=== PATIENT | female | born 1970 | race Caucasian/White ===

== ENCOUNTER 2017-05-02 14:12 | Emergency (ER) | payer SELFPAY ==
[~2017-05-02] VITALS: Ht 157.5 cm; Wt 63.5 kg
[~2017-05-02 14:12] MED LIST: ACET-789 PO; ACHD5005 PO; ALBU17AE3 IH; ALBU8.5H2 IH; AMX500CRX; AZIT-21 PO; BENZ100C18 PO; CEFD300C3 PO; CIPR500T78 PO; CODE-54; CODE118S2 PO; CPR250T PO; CRAN450T2; CRS350T PO; CYCL10TA9 PO; DARI7.5T8; DOXY-13 PO; DOXY100C2 PO; DULO20CA; DULO20CA PO; DULO30CA; DULO30CA PO; DULO60CA58 PO; DULO60CA6 PO; GABA100C; GABA300C PO; GLUCOSAMINE; GUAI10LI9 PO; HYDR-1231 PO; HYDR-2856; HYDR-2890 PO; HYDR-34 PO; HYDR-3583 PO; HYDR-3714 PO; HYDR-3720 PO; HYDR-707 PO; HYDR118S10 PO; HYDR1TAB PO; HYDR50CA3; HYDROCODONE; HYOS0.3710 PO; LACT10SO33; LCT30U; LNS30CCR; LNS30CCR PO; MELO-195 PO; MELO7.5T; METAXALONE; METH4TAB PO; METO-354 PO; NAPR-243; NAPR-243 PO; NAPR220T29 PO; NAPR250T34 PO; NAPR500T72 PO; NCT21TD; NITR-65 PO; OMEP-10 PO; OMEP20CA12; OMEP40CA36 PO; ONDA-42 SL; ONDAN4ODT PO; OXYC-12 PO; OXYC10TA PO; OXYC1TAB17 PO; PHEN100T26 PO; PHEN200T27; PHT5T; PNT40TEC PO; PRD10T PO; PRD20T PO; PROP1TAB61 PO; PROP1TAB77 PO; ROPI1TAB PO; ROPI1TAB40; ROPI2TAB PO; ROPI2TAB28 PO; ROSU5TAB PO; SCR1T PO; SCR1T1 PO; SPIR100T PO; SPIR1TAB; SPRN25T; SULF1TAB35; SULF1TAB38 PO; TRAM50TA2 PO; TRM50T PO; Tylenol #3
[2017-05-02] MEDS ORDERED: IBUPROFEN 800 MG (MOTRIN) TAB PO STA (14:35)
--- NOTE | 2017-05-02 14:51 | Diagnostic Imaging Report ---
INDICATION: Right-sided headache TECHNIQUE: Routine non contrast-enhanced axial images were obtained from the skull base to the vertex. COMPARISON: 01/31/2015 FINDINGS: The ventricles and cortical sulci are normal in size and contour. There is no midline shift or mass-effect. No acute intra-axial hemorrhage is seen. There are no abnormal areas of increased or decreased density to suggest acute hemorrhage or edema. No extra-axial masses or collections are present. The bony calvarium is intact. The visualized paranasal sinuses are unremarkable. The mastoid air cells are clear. IMPRESSION: 1. No acute intracranial abnormality. No CT evidence of mass, acute infarct or intracranial hemorrhage. Dictated by: Dictated on workstation # [id number]
--- NOTE | 2017-05-02 15:09 | ED Headache ---
General Chief Complaint: Head/Cervical Problems Stated Complaint: HEADACHE Nursing Triage Note: PT AMBULATED TO ROOM. PT COMPLAINS OF A MOLINA, AND PRESSURE ON RIGHT SIDE OF HEAD. PT STATES SHE HAS A KNOT ON HER RIGHT SIDE BEHIND HER EAR. PAIN STARTED LAST NIGHT. Nursing Sepsis Screen: No Definite Risk Source: patient Exam Limitations: no limitations History of Present Illness Time seen by provider: 14:30 Initial Comments Here with complaint of pain to the right side of her head and face and has a spot behind her right ear. She states the pain is worse when down better when sitting up. She is worried that she has cancer. Denies fever or chills. Timing/Duration: 24 hours Severity/Quality: moderate Location: frontal, other (frontal to behind right ear) Prior Headaches/Recent Trauma: occasional headaches Associated Symptoms: No confusion, No fever/chills, No loss of consciousness, No nausea/vomiting, nasal congestion, No sinus infection, No stiff neck, No vision changes Allergies and Home Medications Allergies Coded Allergies: lorazepam (Unverified Allergy, Mild, "JITTERY", 05/20/09) dicyclomine (Unverified Allergy, Unknown, 07/07/14) ketorolac tromethamine (Unverified Allergy, Unknown, 06/04/14) prochlorperazine (Verified Allergy, Unknown, "JITTERY", 06/17/08) promethazine (Verified Allergy, Unknown, CONFUSED, AGITATED, 06/17/08) tramadol HCl (Verified Adverse Reaction, Mild, Anxiety, 04/26/13) Pt states she requires Benadryl to calm her down if she takes Ultram or Toradol. Does not have a true allergy to Ultram. Home Medications Duloxetine Hcl 60 Mg Capsule.dr, 1 CAP PO DAILY, (Reported) Hydrocodone Bit/Acetaminophen 1 Each Tablet, 1 EACH PO Q4HR PRN, (Reported) Hydrocodone Bit/Acetaminophen 1 Tab Tablet, 1-2 TAB PO Q6H PRN for PAIN, #10 Prescribed by: CHIDI DAVE on 03/29/15 0043 Naproxen Sodium 220 Mg Tablet, 220 MG PO DAILY, (Reported) Ropinirole Hcl 2 Mg Tab.er.24h, 2 MG PO HS, (Reported) Constitutional: see HPI, No chills, No fever Eyes: See HPI, Pain Ears, Nose, Mouth, Throat: see HPI Respiratory: no symptoms reported Cardiovascular: no symptoms reported Gastrointestinal: no symptoms reported Skin: see HPI Past Vaayvez-Kbprwg-Mdyqkz Hx Patient Social History Alcohol Use: Denies Use Recreational Drug Use: No Smoking Status: Current Everyday Smoker Type Used: Cigarettes 2nd Hand Smoke Exposure: Yes Recent Foreign Travel: No Contact w/Someone Who Travel: No Recent Infectious Disease Expo: No Recent Hopitalizations: Yes (liver faillure, jaundice) Immunizations Up To Date Tetanus Booster (TDap): Less than 5yrs Date of Pneumonia Vaccine: Nov 04, 2013 Date of Influenza Vaccine: Jul 14, 2014 Seasonal Allergies Seasonal Allergies: No Surgeries HX Surgeries: Yes (LEFT OVARY REMOVED, CYST REMOVED FROM BREAST,MESH BLADDER SURGERY) Respiratory Hx Respiratory Disorders: Yes Respiratory Disorders: Asthma Cardiovascular Hx Cardiac Disorders: No Neurological Hx Neurological Disorders: No Reproductive System Hx Reproductive Disorders: No Sexually Transmitted Disease: No HIV/AIDS: No 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 Genitourinary Hx Genitourinary Disorders: Yes (STRESS URINARY INCONTINENCE, MESH BLADDER SURGERY) Genitourinary Disorders: Bladder Infection, Kidney Stones Gastrointestinal Hx Gastrointestinal Disorders: Yes (gastric erosions, CHRONIC ABDOMINAL PAIN) Gastrointestinal Disorders: Ulcer, Gall Bladder Disease Musculoskeletal Hx Musculoskeletal Disorders: Yes (RESTLESS LEG SYNDROME) Musculoskeletal Disorders: Arthritis Endocrine Hx Endocrine Disorders: No HEENT HX ENT Disorders: No Cancer Hx Cancer: No Psychosocial Hx Psychiatric Problems: Yes Behavioral Health Disorders: Anxiety, Depression Integumentary HX Skin/Integumentary Disorder: No Blood Transfusions Hx Blood Disorders: No Reviewed Nursing Assessment Reviewed/Agree w Nursing PMH: Yes Family Medical History Family Medial History: Abdominal aortic aneurysm 19 FATHER Cancer of mouth GRANDMOTHER Diabetes mellitus 19 MOTHER Thyroid disease 19 MOTHER Physical Exam Vital Signs Vital Sign - Last 12Hours 05/02/17 14:24 Temp 96.7 Pulse 83 Resp 20 B/P (MAP) 144/92 Pulse Ox 98 O2 Delivery Room Air Capillary Refill : Less Than 3 Seconds General Appearance: WD/WN, no apparent distress HEENT: PERRL/EOMI, TMs normal, pharynx normal, other (tender to area just behind right ear. Question of post for radicular lymph node. Does have small abrasion just anterior and superior to right ear in the hairline but no other significant findings on scalp or around ear) Neck: full range of motion, supple Cardiovascular: regular rate, rhythm, no murmur Respiratory: lungs clear, normal breath sounds Gastrointestinal: non tender, soft Back: normal inspection, no CVA tenderness, no vertebral tenderness Psychiatric: alert, oriented x 3 Crainal Nerves: normal hearing, normal speech, PERRL Coordination/Gait: normal gait Motor/Sensory: no motor deficit Skin: normal color, warm/dry Progress/Results/Core Measures Results/Orders My Orders Orders - FRNAKI SAMUELS MD Ct Head Wo (05/02/17 14:35) Ibuprofen Tablet (Motrin Tablet) (05/02/17 14:35) Vital Signs/I&O Vital Sign - Last 12Hours 05/02/17 14:24 Temp 96.7 Pulse 83 Resp 20 B/P (MAP) 144/92 Pulse Ox 98 O2 Delivery Room Air Blood Pressure Mean: 109 Progress Note : Progress Note Seen and evaluated. Ibuprofen 800 mg by mouth given. CT head ordered due to pain posterior auricular and to evaluate sinuses as well. 1455: Patient wanted to leave. CT is complete and she did state that she would with 5 more minutes for the results. 1505: CT is negative for acute findings. I did discuss with her about the use of Afrin nasal spray or the generic. Discharge instructions reviewed. Patient states that she was concerned that she can stay longer but needed to go to go to work and she has her taxi waiting outside. Discharged home with return precautions. Patient verbalize understanding instructions and agreement with plan. Diagnostic Imaging Diagonstic Imaging: CT Plain Films/CT/US/NM/MRI: head Comments [facility]IA [facility]. [place], [place] NAME: GUERA VALDOVINOS [facility] REC#: [id number] PT STATUS: REG ER : 1970 PHYSICIAN: FRANKI SAMUELS MD ADMIT DATE: 05/02/17/ER Draft Date of Exam:05/02/17 CT HEAD WO INDICATION: Right-sided headache TECHNIQUE: Routine non contrast-enhanced axial images were obtained from the skull base to the vertex. COMPARISON: 01/31/2015 FINDINGS: The ventricles and cortical sulci are normal in size and contour. There is no midline shift or mass-effect. No acute intra-axial hemorrhage is seen. There are no abnormal areas of increased or decreased density to suggest acute hemorrhage or edema. No extra-axial masses or collections are present. The bony calvarium is intact. The visualized paranasal sinuses are unremarkable. The mastoid air cells are clear. IMPRESSION: 1. No acute intracranial abnormality. No CT evidence of mass, acute infarct or intracranial hemorrhage. Dictated on workstation # [id number] Dict: 05/02/17 1449 Trans: 05/02/17 1451 [facility] [id number] Interpreted by: STEPHEN CARR Electronically signed by: Departure Impression Impression: Primary Impression: Headache Qualified Codes: R51 - Headache Disposition: 01 HOME, SELF-CARE Condition: Stable Departure-Patient Inst. Decision time for Depature: 15:08 Referrals: NO,LOCAL PHYSICIAN (PCP/Family) Primary Care Physician Patient Instructions: Headache, Adult (DC) Add. Discharge Instructions: All discharge instructions reviewed with patient and/or family. Voiced understanding. You may take ibuprofen 600 mg every 8 hours as needed for pain. You may take Tylenol 1000 mg every 8 hours as needed for pain. Drink plenty of fluids. Follow-up with your this week for recheck and further evaluation. Return for worse pain, fever, vomiting, vision or balance problems or other concerns as needed. FRANKI SAMUELS MD May 02, 2017 15:09
[2017-05-02 15:13] VITALS: BP 144/92
== END 2017-05-02 15:13 | disposition home or self-care (01) ==
LOC: EDUNIT# 14:12 → ER 14:20
DX: R51 Headache (principal); J45.909 Unspecified asthma, uncomplicated; F41.8 Other specified anxiety disorders; F17.210 Nicotine dependence, cigarettes, uncomplicated
CPT/HCPCS: 70450; 99282

== ENCOUNTER 2017-05-17 16:06 | Emergency (ER) | payer MEDICAID, OTHER ==
[~2017-05-17] VITALS: Ht 157.5 cm; Wt 63.6 kg
--- NOTE | 2017-05-17 17:56 | Diagnostic Imaging Report ---
EXAMINATION: Left forearm at 5:50 p.m. INDICATION: Fell, arm pain. Two views were obtained. FINDINGS: There is no fracture, dislocation, or acute bony abnormality evident. The wrist and elbow joints are fairly well maintained. The soft tissues are unremarkable. IMPRESSION: There is no evidence for an acute bony abnormality. Dictated by: Dictated on workstation # [id number]
--- NOTE | 2017-05-17 17:56 | ED Upper Extremity ---
General Chief Complaint: Upper Extremity Stated Complaint: PT FELL/LT ARM PAIN Nursing Triage Note: PT REPORTS FALLING OFF HER WASHING MACHINE YESTERDAY AND IS C/O L ARM PAIN SINCE. NO DEFORMITY NOTED AT THIS TIME. Nursing Sepsis Screen: No Definite Risk Exam Limitations: no limitations History of Present Illness Time seen by provider: 17:52 Initial Comments The patient is a 46-year-old white female with 74 previous contacts. She reports that yesterday she climbed on top of her washing machine to get a document from a file folder. She slipped and fell all attempting to get down. She states she grabbed with her left arm attempting to catch herself. She is not sure what she grabbed onto but she wrenched her arm now reports numbness and stinging pain Onset: yesterday Pain/Injury Location: left forearm Method of Injury: fell Allergies and Home Medications Allergies Coded Allergies: lorazepam (Unverified Allergy, Mild, "JITTERY", 05/20/09) dicyclomine (Unverified Allergy, Unknown, 07/07/14) ketorolac tromethamine (Unverified Allergy, Unknown, 06/04/14) prochlorperazine (Verified Allergy, Unknown, "JITTERY", 06/17/08) promethazine (Verified Allergy, Unknown, CONFUSED, AGITATED, 06/17/08) tramadol HCl (Verified Adverse Reaction, Mild, Anxiety, 04/26/13) Pt states she requires Benadryl to calm her down if she takes Ultram or Toradol. Does not have a true allergy to Ultram. Home Medications Duloxetine Hcl 60 Mg Capsule.dr, 1 CAP PO DAILY, (Reported) Hydrocodone Bit/Acetaminophen 1 Each Tablet, 1 EACH PO Q4HR PRN, (Reported) Hydrocodone Bit/Acetaminophen 1 Tab Tablet, 1-2 TAB PO Q6H PRN for PAIN, #10 Prescribed by: CHIDI DAVE on 03/29/15 0043 Naproxen Sodium 220 Mg Tablet, 220 MG PO DAILY, (Reported) Ropinirole Hcl 2 Mg Tab.er.24h, 2 MG PO HS, (Reported) Constitutional: see HPI EENTM: no symptoms reported Respiratory: no symptoms reported Cardiovascular: no symptoms reported Gastrointestinal: no symptoms reported Genitourinary: no symptoms reported Musculoskeletal: no symptoms reported, see HPI Skin: no symptoms reported Psychiatric/Neurological: No Symptoms Reported Past Ftxqmyo-Fyetyf-Homdgw Hx Patient Social History Alcohol Use: Denies Use Recreational Drug Use: No Smoking Status: Current Everyday Smoker Type Used: Cigarettes 2nd Hand Smoke Exposure: Yes Recent Foreign Travel: No Contact w/Someone Who Travel: No Recent Infectious Disease Expo: No Recent Hopitalizations: No Immunizations Up To Date Tetanus Booster (TDap): Less than 5yrs Date of Pneumonia Vaccine: Nov 04, 2013 Date of Influenza Vaccine: Jul 14, 2014 Seasonal Allergies Seasonal Allergies: No Surgeries HX Surgeries: Yes (LEFT OVARY REMOVED, CYST REMOVED FROM BREAST,MESH BLADDER SURGERY) Surgeries: Bladder Surgery, Hysterectomy, 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 Respiratory Hx Respiratory Disorders: Yes Respiratory Disorders: Asthma Cardiovascular Hx Cardiac Disorders: No Neurological Hx Neurological Disorders: No Reproductive System Hx Reproductive Disorders: No Sexually Transmitted Disease: No HIV/AIDS: No Female Reproductive Disorders: Ovarian Cyst NEW PATIENT ESCORT History: Hysterectomy Genitourinary Hx Genitourinary Disorders: Yes (STRESS URINARY INCONTINENCE, MESH BLADDER SURGERY) Genitourinary Disorders: Bladder Infection, Kidney Stones Gastrointestinal Hx Gastrointestinal Disorders: Yes (gastric erosions, CHRONIC ABDOMINAL PAIN) Gastrointestinal Disorders: Ulcer, Gall Bladder Disease Musculoskeletal Hx Musculoskeletal Disorders: Yes (RESTLESS LEG SYNDROME) Musculoskeletal Disorders: Arthritis Endocrine Hx Endocrine Disorders: No HEENT HX ENT Disorders: No Cancer Hx Cancer: No Psychosocial Hx Psychiatric Problems: Yes Behavioral Health Disorders: Anxiety, Depression Integumentary HX Skin/Integumentary Disorder: No Blood Transfusions Hx Blood Disorders: No Family Medical History Family Medial History: Abdominal aortic aneurysm 19 FATHER Cancer of mouth GRANDMOTHER Diabetes mellitus 19 MOTHER Thyroid disease 19 MOTHER Physical Exam Vital Signs Vital Sign - Last 12Hours 05/17/17 17:07 Temp 98.1 Pulse 84 Resp 16 B/P (MAP) 138/74 Pulse Ox 97 O2 Delivery Room Air Capillary Refill : Less Than 3 Seconds General Appearance: moderate distress, other (multiple trips to the desk inquiring when she would be seen and if she could have pain medicine) HEENT: normal ENT inspection Neck: full range of motion Cardiovascular: normal peripheral pulses, regular rate, rhythm, no edema, no gallop, no JVD, no murmur Respiratory: chest non-tender, lungs clear, normal breath sounds, no respiratory distress, no accessory muscle use Elbow/Forearm: normal inspection, no evidence of injury, normal ROM, bone tenderness (Complained greatly of pain to passive range of motion. No deformity , ecchymosis, swelling noted) Progress/Results/Core Measures Results/Orders My Orders Orders - SAMY BARR MD Forearm, Left, 2 Views (05/17/17 17:27) Sling (05/17/17 17:57) Vital Signs/I&O Vital Sign - Last 12Hours 05/17/17 17:07 Temp 98.1 Pulse 84 Resp 16 B/P (MAP) 138/74 Pulse Ox 97 O2 Delivery Room Air Blood Pressure Mean: 95 Departure Communication Progress Notes 18 O2 x-rays examined by me. No fracture is noted at elbow wrist or shaft of the ulna or radius Impression Impression: Primary Impression: strain left elbow and forearm Disposition: 01 HOME, SELF-CARE Condition: Stable/Unchanged Departure-Patient Inst. Decision time for Depature: 18:02 Referrals: NO,LOCAL PHYSICIAN (PCP) Primary Care Physician Patient Instructions: How to Use a Shoulder Sling Add. Discharge Instructions: All discharge instructions reviewed with patient and/or family. Voiced understanding. Ice pack left elbow and forearm for 30 minutes 3 times before bedtime. [place] as directed Wear sling for the next 48-72 hours or longer if still troubled. Scripts Hydrocodone/Acetaminophen ([place] 7.5-325 Tablet) 1 Each Tablet 1 EACH PO 4 times a day, #10 TAB Prov: SAMY BARR MD 05/17/17 SAMY BARR MD May 17, 2017 17:56
[2017-05-17] MEDS ORDERED: HYDR-756 PO (18:04)
[2017-05-17 18:14] VITALS: BP 135/71
--- OUTSIDE RECORDS SUMMARY | 2017-05-17 18:49 | XMS REPORT | Continuity of Care Document ---
Author Author [facility] Organization [facility] Address Unknown Phone Unavailable Care Team Providers Care Race Relations Professor Name Role Phone No Pcp, Na PCP Unavailable Source Comments Some departments are not documenting in the electronic medical record. If you do not see the information that you expected, contact Release of Information in the Health Information Management department at [phone] for further assistance in locating additional records.[facility] Active Allergies and Adverse Reactions Allergen Noted Date Severity Reactions Comments Bentyl 04/18/2017 Low ANXIETY Toradol 04/18/2017 Low ANXIETY Ultram 04/18/2017 Low ANXIETY Current Medications Prescription Sig. Disp. Refills Start End Date Status Date polyethylene glycol 3350 Take 1 Packet by mouth 12 Each 0 04/21/20 Active (MIRALAX) 17 g packet daily. 17 ciprofloxacin (CIPRO) 500 Take 1 Tab by mouth twice 20 Tab 0 04/18/20 04/28/20 mg tablet daily for 10 days. 17 17 Active Problems Not on file Most Recent Encounters Date Type Specialty Providers Description 04/23/2017 [facility] Emergency [facility] Antoine Sullivan MD Encounter 04/21/2017 [facility] Emergency Medicine Angelo Devi MD Encounter 04/18/2017 Hospital Emergency Medicine Messi Corley MD - Encounter 04/19/2017 04/18/2017 [facility] Encounter Social History Tobacco Use Types Packs/Day Years Used Date Current Every Day Smoker Cigarettes 1 Alcohol Use Drinks/Week oz/Week Comments No Last Filed Vital Signs Vital Sign Reading Time Taken Blood Pressure 97/65 04/23/2017 4:30 AM CDT Pulse 96 04/23/2017 2:14 AM CDT Temperature 36.6 C (97.8 F) 04/23/2017 2:14 AM CDT Respiratory Rate - - Height 1.575 m (5' 2") 04/21/2017 8:54 AM CDT Weight 61.236 kg (135 lb) 04/23/2017 2:14 AM CDT Body Mass Index 24.69 04/23/2017 2:14 AM CDT Oxygen Saturation 100% 04/23/2017 4:58 AM CDT Plan of Care Health Maintenance Due Date Last Done Comments Physical (Comprehensive) 1975 Exam Pertussis Vaccine 1979 Tetanus Vaccine 1985 Cervical Cancer Screening 1989 Breast Cancer Screening 2008 Influenza Vaccine 07/14/2017 Procedures from Last 3 Months Procedure Name Priority Date/Time Associated Diagnosis Comments ECG-SCAN 04/24/2017 Results for this 6:50 AM CDT procedure are in the results section. ECG UNCONFIRMED-SCAN 04/22/2017 Results for this 11:13 AM CDT procedure are in the results section. Results from Last 3 Months * ECG-SCAN (04/24/2017 6:50 AM) Narrative Ordered by an unspecified provider. * URINALYSIS, MICROSCOPIC (04/23/2017 2:51 AM) Only the most recent of 3 results within the time period is included. Component Value Range WBCs,UA 2-10 0-2 /HPF RBCs,UA 0-2 0-3 /HPF MucousUA TRACE Squamous Epithelial Cells 10-20 0-5 Specimen Urine * URINALYSIS DIPSTICK (04/23/2017 2:51 AM) Only the most recent of 3 results within the time period is included. Component Value Range Color,UA YELLOW Turbidity,UA CLEAR CLEAR-CLEAR Specific [place]-Urine 1.030 1.003-1.035 pH,UA 5.0 5.0-8.0 Protein,UA NEG NEG-NEG Glucose,UA NEG NEG-NEG Ketones,UA NEG NEG-NEG Bilirubin,UA NEG NEG-NEG Blood,UA NEG NEG-NEG Urobilinogen,UA NORMAL NORM-NORMAL Nitrite,UA NEG NEG-NEG Leukocytes,UA NEG NEG-NEG Urine Ascorbic Acid, UA NEG NEG-NEG Specimen Urine * CULTURE-URINE W/SENSITIVITY (04/23/2017 2:51 AM) Component Value Range Battery Name URINE CULTURE Specimen Description URINE, CLEAN CATCH Special Requests NONE Culture NO GROWTH Report Status FINAL 04/24/2017 Specimen Urine - Urine,Clean Catch * ECG UNCONFIRMED-SCAN (04/22/2017 11:13 AM) Narrative Ordered by an unspecified provider. * CT ABD/PELV WO CONTRAST (04/21/2017 11:06 AM) Impressions 1.No bowel obstruction, ascites, pneumoperitoneum or hydronephrosis. 2.Punctate nonobstructing left renal calculus. Finalized by Fred Schmitt M.D. on 04/21/2017 11:18 AM. Dictated by Fred Schmitt M.D. on 04/21/2017 11:[address] ABDOMEN AND PELVIS Clinical Indication:Female, 46 years old.Abdominal pain.Abdominal pain localized to right upper quadrant.Vomiting. Technique: Multiple contiguous axial CT images were obtained through the abdomen and pelvis without IV contrast. Post processing coronal and sagittal reconstruction images were made from the axial images. IV contrast: None. Bowel contrast:None Comparison: Abdominal sonogram April 18, 2012.Otherwise, no relevant prior. FINDINGS: Limited evaluation without the use of IV contrast which includes the viscera and vasculature. Lower Thorax: Minimal groundglass type atelectasis is present dependently within both lung bases. Heart size is normal. Liver and Biliary system: The liver is normal in size and grossly unremarkable. The gallbladder is nondistended, with no calcified gallstones visualized. The common bile duct is normal in caliber. Spleen: Unremarkable. Adrenal Glands and Kidneys: The adrenal glands are normal. The nonopacified kidneys are both grossly unremarkable except for a punctate 2 mm nonobstructing calculus within the lower pole of the left kidney. Pancreas and Retroperitoneum: Unremarkable. Aorta and Major Vessels: Normal caliber abdominal aorta and common iliac arteries with mild calcific atherosclerosis. Bowel, Mesentery and Peritoneal space: Unremarkable. Pelvis: The uterus is absent. The minimally distended urinary bladder is unremarkable. No pelvic lymphadenopathy is present. Abdominal wall and Osseous Structures: There is chronic bilateral spondylolysis at L5 with grade 1 anterolisthesis of L5 on S1 and moderate to severe associated degenerative disc disease. Procedure Note Interface, Radiant Results - MonApr 21, 2017 11:[address] ABDOMEN AND PELVIS Clinical Indication: Female, 46 years old. Abdominal pain. Abdominal pain localized to right upper quadrant. Vomiting. Technique: Multiple contiguous axial CT images were obtained through the abdomen and pelvis without IV contrast. Post processing coronal and sagittal reconstruction images were made from the axial images. IV contrast: None. Bowel contrast: None Comparison: Abdominal sonogram April 18, 2012. Otherwise, no relevant prior. FINDINGS: Limited evaluation without the use of IV contrast which includes the viscera and vasculature. Lower Thorax: Minimal groundglass type atelectasis is present dependently within both lung bases. Heart size is normal. Liver and Biliary system: The liver is normal in size and grossly unremarkable. The gallbladder is nondistended, with no calcified gallstones visualized. The common bile duct is normal in caliber. Spleen: Unremarkable. Adrenal Glands and Kidneys: The adrenal glands are normal. The nonopacified kidneys are both grossly unremarkable except for a punctate 2 mm nonobstructing calculus within the lower pole of the left kidney. Pancreas and Retroperitoneum: Unremarkable. Aorta and Major Vessels: Normal caliber abdominal aorta and common iliac arteries with mild calcific atherosclerosis. Bowel, Mesentery and Peritoneal space: Unremarkable. Pelvis: The uterus is absent. The minimally distended urinary bladder is unremarkable. No pelvic lymphadenopathy is present. Abdominal wall and Osseous Structures: There is chronic bilateral spondylolysis at L5 with grade 1 anterolisthesis of L5 on S1 and moderate to severe associated degenerative disc disease. IMPRESSION 1. No bowel obstruction, ascites, pneumoperitoneum or hydronephrosis. 2. Punctate nonobstructing left renal calculus. Finalized by Fred Schmitt M.D. on 04/21/2017 11:18 AM. Dictated by Fred Schmitt M.D. on 04/21/2017 11:07 AM. * LIPASE (04/21/2017 10:30 AM) Only the most recent of 2 results within the time period is included. Component Value Range Lipase 38 11-82 U/L Specimen Blood * COMPREHENSIVE METABOLIC PANEL (04/21/2017 10:30 AM) Only the most recent of 2 results within the time period is included. Component Value Range Sodium 136 (L) 137-147 MMOL/L Potassium 4.3 3.5-5.1 MMOL/L Chloride 106 98-110 MMOL/L Glucose 94 70-100 MG/DL Blood Urea Nitrogen 19 7-25 MG/DL Creatinine 0.77 0.4-1.00 MG/DL Calcium 10.1 8.5-10.6 MG/DL Total Protein 7.4 6.0-8.0 G/DL Total Bilirubin 0.2 (L) 0.3-1.2 MG/DL Albumin 4.4 3.5-5.0 G/DL Alk Phosphatase 85 25-110 U/L AST (SGOT) 17 7-40 U/L CO2 24 21-30 MMOL/L ALT (SGPT) 9 7-56 U/L Anion Gap 6 3-12 eGFR Non >60Comment: >60 mL/min The eGFR is not validated for use in drug dosing adjustments. Continue to use estimated creatinine clearance per dosing reference text. Please contact the Clinical Pharmacist for questions. eGFR >60Comment: >60 mL/min The eGFR is not validated for use in drug dosing adjustments. Continue to use estimated creatinine clearance per dosing reference text. Please contact the Clinical Pharmacist for questions. Specimen Blood * CHEST 2 VIEWS (04/21/2017 9:54 AM) Impressions No acute cardiopulmonary abnormality. Finalized by Clint Velasco M.D. on 04/21/2017 9:56 AM. Dictated by Clint Velasco M.D. on 04/21/2017 9:55 AM. Narrative 2 views of the chest Clinical history: Chest pain. Findings: Comparison chest film: None available. The heart and pulmonary vasculature are within normal limits. There are no consolidating infiltrates, effusions or pneumothoraces identified. Procedure Note Interface, Radiant Results - MonApr 21, 2017 9:59 AM CDT 2 views of the chest Clinical history: Chest pain. Findings: Comparison chest film: None available. The heart and pulmonary vasculature are within normal limits. There are no consolidating infiltrates, effusions or pneumothoraces identified. IMPRESSION No acute cardiopulmonary abnormality. Finalized by Clint Velasco M.D. on 04/21/2017 9:56 AM. Dictated by Clint Velasco M.D. on 04/21/2017 9:55 AM. * POC TROPONIN (04/21/2017 9:15 AM) Component Value Range Rycnkxpt-J-BZJ 0.00 0.00-0.05 NG/ML * CBC AND DIFF (04/21/2017 9:15 AM) Only the most recent of 2 results within the time period is included. Component Value Range White Blood Cells 6.2 4.5-11.0 K/UL RBC 4.34 4.0-5.0 M/UL Hemoglobin 13.3 12.0-15.0 GM/DL Hematocrit 39.5 36-45 % MCV 91.0 80-100 FL MCH 30.7 26-34 PG MCHC 33.7 32.0-36.0 G/DL RDW 13.3 11-15 % Platelet Count 295 150-400 K/UL MPV 8.3 7-11 FL Neutrophils 46 41-77 % Lymphocytes 40 24-44 % Monocytes 8 4-12 % Eosinophils 5 0-5 % Basophils 1 0-2 % Absolute Neutrophil Count 2.90 1.8-7.0 K/UL Absolute Lymph Count 2.50 1.0-4.8 K/UL Absolute Monocyte Count 0.50 0-0.80 K/UL Absolute Eosinophil Count 0.30 0-0.45 K/UL Absolute Basophil Count 0.00 0-0.20 K/UL Specimen Blood * US ABDOMEN COMPLETE (04/18/2017 11:34 PM) Impressions Mild common duct dilatation with no intrahepatic biliary ductal dilatation and a normal-appearing gallbladder. Given normal LFTs, this is likely of no acute clinical significance. Otherwise unremarkable ultrasound of the abdomen. By my electronic signature, I attest that I have personally reviewed the images for this examination and formulated the interpretations and opinions expressed in this report Finalized by Sami Mao M.D. on 04/18/2017 11:39 PM. Dictated by Kyle Kapadia M.D. on 04/18/2017 11:22 PM. Narrative COMPLETE ABDOMINAL ULTRASOUND HISTORY: 46-year-old female, abdominal pain, vaginal bleeding. COMPARISON:None TECHNIQUE:Multiple real-time grayscale sonographic images were obtained of the abdomen. FINDINGS: The liver demonstrates homogeneous echotexture and measures 13.1 cm in length. No focal liver lesions are identified. No intrahepatic biliary ductal dilatation is identified. The common duct measures 0.7 cm. The gallbladder is normal in size and configuration. The kidneys are symmetric in size and in normal location. The right kidney measures 11.1 x 4.5 cm and the left kidney measures 10.5 x 5.9 cm. No hydronephrosis or renal mass is seen in either kidney. The urinary bladder appears unremarkable. The spleen measures 9.9 cm. No abdominal or pelvic ascites is identified. Visualized portions of the aorta and IVC are unremarkable. Visualized portions of the pancreas are unremarkable. Procedure Note Interface, Radiant Results - Tue Apr 18, 2017 11:42 PM CDT COMPLETE ABDOMINAL ULTRASOUND HISTORY: 46-year-old female, abdominal pain, vaginal bleeding. COMPARISON: None TECHNIQUE: Multiple real-time grayscale sonographic images were obtained of the abdomen. FINDINGS: The liver demonstrates homogeneous echotexture and measures 13.1 cm in length. No focal liver lesions are identified. No intrahepatic biliary ductal dilatation is identified. The common duct measures 0.7 cm. The gallbladder is normal in size and configuration. The kidneys are symmetric in size and in normal location. The right kidney measures 11.1 x 4.5 cm and the left kidney measures 10.5 x 5.9 cm. No hydronephrosis or renal mass is seen in either kidney. The urinary bladder appears unremarkable. The spleen measures 9.9 cm. No abdominal or pelvic ascites is identified. Visualized portions of the aorta and IVC are unremarkable. Visualized portions of the pancreas are unremarkable. IMPRESSION Mild common duct dilatation with no intrahepatic biliary ductal dilatation and a normal-appearing gallbladder. Given normal LFTs, this is likely of no acute clinical significance. Otherwise unremarkable ultrasound of the abdomen. By my electronic signature, I attest that I have personally reviewed the images for this examination and formulated the interpretations and opinions expressed in this report Finalized by Sami Mao M.D. on 04/18/2017 11:39 PM. Dictated by Kyle Kapadia M.D. on 04/18/2017 11:22 PM. * CHLAM/NG PCR SWAB (04/18/2017 9:55 PM) Component Value Range CHLAM/NG PCR Source CERVICAL Chlamydia Trachomatis NEG NEG-NEG Probe N.Gonorrhea PCR NEGComment: NEG-NEG [place]-8 Gen-Probe APTIMA Combo 2 Assay is a target amplification nucleic acid probe test that utilizes target capture for the in vitro qualitative detection and differentiation of ribosomal RNA from Chlamydia trachomatis (CT) and Neisseria gonorrhoeae (NG). The assay is FDA approved for vaginal, endocervical, male urethral swabs, ThinPrep and male urine. Performance of this test on other specimens has been validated by the Department of Pathology and Laboratory Medicine at [facility] using the [place]-8 Gen-Probe [place] System. Specimen Cervix * DIRECT EXAM (WET PREP) (04/18/2017 9:44 PM) Component Value Range Battery Name DIRECT EXAM,WET PREP Specimen Description VAGINAL Special Requests NONE Direct Exam NO CLUE CELLS SEEN NO YEAST SEEN NO TRICHOMONAS SEEN Report Status FINAL 04/18/2017 Specimen Vaginal * POC LACTATE (04/18/2017 9:32 PM) Component Value Range LACTIC ACID POC 0.7 0.5-2.0 MMOL/L
--- OUTSIDE RECORDS SUMMARY | 2017-05-17 18:49 | XMS REPORT | Continuity of Care Document ---
Author Author [employer] Organization [facility] Address Unknown Phone Unavailable Care Team Providers Care Millinery Blocker Name Role Phone [employer] Unavailable Unavailable Problems Problem Status Onset Date Classification Date Reported Comments Source No data available for this section Problem 09/09/2015 [facility], [facility]. Medications Medication Details Route Status Patient Instructions Ordering Provider Order Date Source No Known Medications No known medications Active [facility], [facility]. Allergies, Adverse Reactions, Alerts Substance Category Reaction Severity Reaction type Status Date Reported Comments Source Lorazepam Assertion Drug allergy [facility] Dicyclomine Assertion Drug allergy [facility]. Iodine Assertion Drug allergy [facility] Ketorolac Assertion Drug allergy [facility] Tramadol Assertion Drug allergy [facility] Immunizations Immunization Date Given Site Status Last Updated Comments Source No data available for this section No data available for this section [facility], [facility]. Results Vital Signs Encounters Location Location Details Encounter Type Encounter Number Reason For Visit Attending Provider ADM Date DC Date Status Source [facility] [id number] Emergency [id number] [facility] 03/21/2015 03/21/2015 Active [facility] [id number] Emergency [id number] [facility] 08/22/2015 08/22/2015 Active [facility] [id number] Emergency [id number] [facility] 09/04/2015 09/04/2015 Active [facility] [id number] Emergency [id number] Jayda Arias 10/09/2015 10/09/2015 Active [facility] Procedures Procedure Code Date Perfomer Comments Source No data available for this section [facility]. bladder surgery with mesh [facility] hysterectomy [facility] left breast cyst [facility] ovarian cyst removal [facility], [facility]. tubal ligation [facility], [facility]. Plan of Care Social History Assessment and Plan Family History Value Date Source Advance Directives Order Name Results Value Date Source
== END 2017-05-17 18:14 | disposition home or self-care (01) ==
LOC: EDUNIT# 16:06 → ER 16:09
DX: S56.512A Strain of other extensor muscle, fascia and tendon at forearm level, left arm, initial encounter (principal); S53.402A Unspecified sprain of left elbow, initial encounter; F41.9 Anxiety disorder, unspecified; F32.9 Major depressive disorder, single episode, unspecified; M19.90 Unspecified osteoarthritis, unspecified site; G25.81 Restless legs syndrome; J45.909 Unspecified asthma, uncomplicated; F17.210 Nicotine dependence, cigarettes, uncomplicated; Z98.51 Tubal ligation status; Z87.442 Personal history of urinary calculi; Z90.721 Acquired absence of ovaries, unilateral; W01.0XXA Fall on same level from slipping, tripping and stumbling without subsequent striking against object, initial encounter
CPT/HCPCS: 73090; 99282

== ENCOUNTER 2017-07-08 17:52 | Emergency (ER) | payer MEDICAID ==
[~2017-07-08] VITALS: Ht 157.5 cm; Wt 61.2 kg
[~2017-07-08 17:52] MED LIST changes: +HYDR-756 PO
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
[2017-07-08] MEDS: ONDANSETRON 4 MG/2 ML (SDV) Z0FRAN ONE (18:09)
[2017-07-08] MEDS: morphine INJ 10 MG/ML 1ML (SYR OR VIAL) ONE (18:11)
[2017-07-08] MEDS: morphine INJ 10 MG/ML 1ML (SYR OR VIAL) IV STA (18:16)
[2017-07-08 18:21] LABS: BASOPHILS % (AUTO) 0 % (0-10); EOSINOPHILS # (AUTO) 0.4 10^3/uL (0.0-0.3); EOSINOPHILS % (AUTO) 4 % (0-10); LYMPHOCYTES # (AUTO) 3.9 X 10^3 (1.0-4.0); LYMPHOCYTES % (AUTO) 41 % (12-44); MEAN CORPUSCULAR HEMOGLOBIN 31 PG (25-34); MEAN CORPUSCULAR HGB CONC 35 G/DL (32-36); MEAN CORPUSCULAR VOLUME 87 FL (80-99); MONOCYTES % (AUTO) 10 % (0-12); NEUTROPHILS # (AUTO) 4.3 X 10^3 (1.8-7.8); NEUTROPHILS % (AUTO) 45 % (42-75); PLATELET COUNT 331 10^3/uL (130-400); RED CELL DISTRIBUTION WIDTH 11.9 % (10.0-14.5); WHITE BLOOD COUNT 9.5 10^3/uL (4.3-11.0)
[2017-07-08 18:23] LABS: INR 0.8 (0.8-1.4); PROTHROMBIN TIME PATIENT 11.6 SEC (12.2-14.7)
[2017-07-08] MEDS: NS IV 500 ML 500 ML IV ONE (18:27)
[2017-07-08 18:28] LABS: BILIRUBIN,URINE NEGATIVE (NEGATIVE); KETONES,URINE NEGATIVE (NEGATIVE); LEUKOCYTE ESTERASE ,URINE NEGATIVE (NEGATIVE); NITRITE,URINE NEGATIVE (NEGATIVE); PH,URINE 6.5 (5-9); PROTEIN,URINE NEGATIVE (NEGATIVE); UROBILINOGEN,URINE NORMAL (NORMAL)
[2017-07-08 18:35] LABS: ALANINE AMINOTRANSFERASE 18 U/L (0-55); ALBUMIN 4.6 GM/DL (3.2-4.5); ANION GAP 14 MMOL/L (5-14); ASPARTATE AMINO TRANSFERASE 26 U/L (5-34); BILIRUBIN,TOTAL 0.3 MG/DL (0.1-1.0); BLOOD UREA NITROGEN 9 MG/DL (7-18); BUN/CREATININE RATIO 12; CALCIUM 10.4 MG/DL (8.5-10.1); CARBON DIOXIDE 23 MMOL/L (21-32); CHLORIDE 106 MMOL/L (98-107); CREATININE SERUM 0.73 MG/DL (0.60-1.30); GFR ESTIMATED > 60; GLUCOSE 63 MG/DL (70-105); LIPASE 31 U/L (8-78); MAGNESIUM 1.9 MG/DL (1.8-2.4); POTASSIUM 3.5 MMOL/L (3.6-5.0); SODIUM 143 MMOL/L (135-145); TOTAL PROTEIN 8.2 GM/DL (6.4-8.2)
[2017-07-08 18:37] LABS: SQUAMOUS EPITHELIAL CELL,UR RARE /HPF
[2017-07-08 18:42] LABS: MYOGLOBIN SERUM 44.8 NG/ML (10.0-92.0)
[2017-07-08] MEDS: clonazePAM 0.5 MG (KlonoPIN) TAB PO ONE (18:42)
--- NOTE | 2017-07-08 18:46 | Diagnostic Imaging Report ---
INDICATION: Chest pain. EXAMINATION: PA and lateral views of the chest were obtained. COMPARISON: Study of 08/04/2016. FINDINGS: Heart size and pulmonary vascularity are within normal limits, and the lungs are clear, bilaterally. IMPRESSION: Unremarkable chest. Dictated by: Dictated on workstation # [id number]
[2017-07-08] MEDS ORDERED: HYDR25CA PO (19:27)
[2017-07-08 19:29] VITALS: BP 118/71
== END 2017-07-08 19:29 | disposition home or self-care (01) ==
LOC: EDUNIT# 17:52 → ER 17:53
DX: F41.0 Panic disorder [episodic paroxysmal anxiety] (principal); R07.9 Chest pain, unspecified; F32.9 Major depressive disorder, single episode, unspecified; G25.81 Restless legs syndrome; J45.909 Unspecified asthma, uncomplicated; F17.210 Nicotine dependence, cigarettes, uncomplicated; Z87.442 Personal history of urinary calculi; Z87.42 Personal history of other diseases of the female genital tract; Z90.710 Acquired absence of both cervix and uterus; Z98.51 Tubal ligation status; Z88.8 Allergy status to other drugs, medicaments and biological substances; Z90.721 Acquired absence of ovaries, unilateral
CPT/HCPCS: 36415; 71020; 80053; 80306; 81000; 83690; 83735; 83874; 84484; 85025; 85379; 85610; 85730; 93041

== ENCOUNTER 2018-12-17 15:10 | Emergency (ER) | payer SELFPAY ==
[~2018-12-17] VITALS: Ht 157.5 cm; Wt 62.1 kg
[~2018-12-17 15:10] MED LIST changes: +HYDR-4227 PO; -HYDR-756 PO; +HYDR25CA PO
[2018-12-17] MEDS ORDERED: HYDROcodone/APAP 5 MG/325 MG (LORTAB) TAB PO ONE (16:30)
--- NOTE | 2018-12-17 16:38 | NUR ---
ICE PACK PROVIDED TO PATIENT.
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
--- NOTE | 2018-12-17 17:28 | Diagnostic Imaging Report ---
EXAMINATION: Left forearm at 04:50 p.m. INDICATION: Injury. FINDINGS: AP and lateral views were obtained. There is no fracture, dislocation, or acute bony abnormality evident. There is mild degenerative disease of the radiocarpal joint. This finding is similar to the prior exam of 05/17/2017. The elbow joint is fairly well maintained. The soft tissues are unremarkable. IMPRESSION: There is no evidence for an acute bony abnormality. Dictated by: Dictated on workstation # [id number]
[2018-12-17 17:32] VITALS: BP 151/101
== END 2018-12-17 17:32 | disposition home or self-care (01) ==
LOC: EDUNIT# 15:10 → ER 15:12
DX: S50.12XA Contusion of left forearm, initial encounter (principal); J44.9 Chronic obstructive pulmonary disease, unspecified; F41.9 Anxiety disorder, unspecified; F32.9 Major depressive disorder, single episode, unspecified; F17.210 Nicotine dependence, cigarettes, uncomplicated; Z87.442 Personal history of urinary calculi; Z88.8 Allergy status to other drugs, medicaments and biological substances; Z88.5 Allergy status to narcotic agent; Z90.710 Acquired absence of both cervix and uterus; Z98.51 Tubal ligation status; W23.0XXA Caught, crushed, jammed, or pinched between moving objects, initial encounter
CPT/HCPCS: 73090

== ENCOUNTER 2018-12-19 14:02 | Emergency (ER) | payer SELFPAY ==
[~2018-12-19] VITALS: Ht 157.5 cm; Wt 62.1 kg
[2018-12-19 14:09] VITALS: BP 137/77
[2018-12-19] MEDS ORDERED: HYDR-3812 (14:17)
--- NOTE | 2018-12-19 14:17 | NUR ---
PT DENIES HAVING HYDROCODONE FILLED THIS MONTH.
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
--- NOTE | 2018-12-19 14:35 | NUR ---
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
--- NOTE | 2018-12-19 15:00 | NUR ---
PT NO LONGER IN ROOM ET NOT IN THE BATHROOMS. REGISTRATION STATES THEY DID NOT SEE HER LEAVE. GUS NOTIFIED.
== END 2018-12-19 15:00 | disposition left against medical advice (07) ==
LOC: EDUNIT# 14:02 → ER 14:04
DX: S49.92XA Unspecified injury of left shoulder and upper arm, initial encounter (principal); J44.9 Chronic obstructive pulmonary disease, unspecified; G25.81 Restless legs syndrome; F41.9 Anxiety disorder, unspecified; F32.9 Major depressive disorder, single episode, unspecified; F17.200 Nicotine dependence, unspecified, uncomplicated; Z87.19 Personal history of other diseases of the digestive system; Z87.442 Personal history of urinary calculi; Z87.448 Personal history of other diseases of urinary system; Z90.710 Acquired absence of both cervix and uterus; Z98.51 Tubal ligation status; Z98.890 Other specified postprocedural states
CPT/HCPCS: 99281

== ENCOUNTER 2018-12-21 14:25 | Emergency (ER) | payer SELFPAY ==
[~2018-12-21] VITALS: Ht 157.5 cm; Wt 63.5 kg
[~2018-12-21 14:25] MED LIST changes: +HYDR-3812
[2018-12-21] MEDS ORDERED: HYDROcodone/APAP 5 MG/325 MG (LORTAB) TAB PO ONE (14:45)
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
--- NOTE | 2018-12-21 15:08 | Diagnostic Imaging Report ---
INDICATION: Left-sided chest pain and cough. EXAM: PA and lateral chest obtained at 2:51 hours p.m. COMPARISON: 05/06/2018 FINDINGS: Heart and mediastinal silhouette are normal in appearance. The lungs appear clear. There is no pneumothorax or pleural fluid. IMPRESSION: Negative chest. Dictated by: Dictated on workstation # [id number]
[2018-12-21] MEDS ORDERED: METH4TAB PO (15:14)
[2018-12-21] MEDS ORDERED: AZIT250T PO (15:14)
[2018-12-21] MEDS ORDERED: RT-ALBUINH IH (15:14)
[2018-12-21] MEDS ORDERED: ACHD5005 PO (15:14)
[2018-12-21 15:36] VITALS: BP 147/87
== END 2018-12-21 15:35 | disposition home or self-care (01) ==
LOC: EDUNIT# 14:25 → ER 14:25
DX: S50.12XA Contusion of left forearm, initial encounter (principal); J44.9 Chronic obstructive pulmonary disease, unspecified; F17.210 Nicotine dependence, cigarettes, uncomplicated; F41.9 Anxiety disorder, unspecified; F32.9 Major depressive disorder, single episode, unspecified; Z87.442 Personal history of urinary calculi; Z88.8 Allergy status to other drugs, medicaments and biological substances; Z88.5 Allergy status to narcotic agent; Z88.6 Allergy status to analgesic agent; Z90.710 Acquired absence of both cervix and uterus; Z98.51 Tubal ligation status; W22.8XXA Striking against or struck by other objects, initial encounter
CPT/HCPCS: 71046

== ENCOUNTER 2018-12-22 14:52 | Emergency (ER) | payer SELFPAY ==
[~2018-12-22] VITALS: Ht 160 cm; Wt 68.0 kg
[~2018-12-22 14:52] MED LIST changes: +AZIT250T PO; +RT-ALBUINH IH
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
--- NOTE | 2018-12-22 15:45 | NUR ---
PT COMPLAINS OF HEADACHE. ANJELICA NOTIFIED.
[2018-12-22 16:15] VITALS: BP 145/71
== END 2018-12-22 16:15 | disposition home or self-care (01) ==
LOC: EDUNIT# 14:52 → ER 14:53
DX: S09.90XA Unspecified injury of head, initial encounter (principal); J44.9 Chronic obstructive pulmonary disease, unspecified; F41.9 Anxiety disorder, unspecified; F32.9 Major depressive disorder, single episode, unspecified; R40.2142 Coma scale, eyes open, spontaneous, at arrival to emergency department; R40.2252 Coma scale, best verbal response, oriented, at arrival to emergency department; R40.2362 Coma scale, best motor response, obeys commands, at arrival to emergency department; Z87.19 Personal history of other diseases of the digestive system; Z87.442 Personal history of urinary calculi; Z88.4 Allergy status to anesthetic agent; Z88.6 Allergy status to analgesic agent; Z80.0 Family history of malignant neoplasm of digestive organs; Z88.8 Allergy status to other drugs, medicaments and biological substances; Z79.51 Long term (current) use of inhaled steroids; Z79.52 Long term (current) use of systemic steroids; Z77.22 Contact with and (suspected) exposure to environmental tobacco smoke (acute) (chronic); Z90.710 Acquired absence of both cervix and uterus; Z98.51 Tubal ligation status; Z87.448 Personal history of other diseases of urinary system; V49.60XA Unspecified car occupant injured in collision with unspecified motor vehicles in traffic accident, initial encounter
CPT/HCPCS: 70450

== ENCOUNTER 2018-12-31 08:26 | Emergency (ER) | payer SELFPAY ==
[~2018-12-31] VITALS: Ht 157.5 cm; Wt 63.5 kg
--- NOTE | 2018-12-31 09:02 | ED Integumentary General ---
General Chief Complaint: Skin/Wound Problems Stated Complaint: PT STATES SHE HAS SHINGLES Nursing Triage Note: PT PRESENTS TO ER WITH COMPLAINT OF LEFT SIDE PAIN. PT STATES SHE IS CURRENTLY BEING TREATED FOR SHINGLES. Source: patient Exam Limitations: no limitations History of Present Illness Date Seen by Provider: Dec 31, 2018 Time Seen by Provider: 08:48 Initial Comments The patient presents to ER by private conveyance with chief complaint she's having some left rib pain consistent with her recent diagnosis 3 weeks ago of shingles. She says she did have some vesicles but they have resolved however the pain is still intense, 9 out of 10 and she has been on the acyclovir for 2 weeks and started a methylprednisolone dosepak. She is on diclofenac for the pain but she says it does not help much. She has problems taking gabapentin or Lyrica because it causes hallucinations. She's not using Tylenol because she says it doesn't help. She does not use any topicals. This is her second round with shingles first time was on her right leg. Allergies and Home Medications Allergies Coded Allergies: lorazepam (Unverified Allergy, Mild, "JITTERY", 05/20/09) dicyclomine (Unverified Allergy, Unknown, 07/07/14) ketorolac tromethamine (Unverified Allergy, Unknown, 06/04/14) prochlorperazine (Verified Allergy, Unknown, "JITTERY", 06/17/08) promethazine (Verified Allergy, Unknown, CONFUSED, AGITATED, 06/17/08) tramadol HCl (Verified Adverse Reaction, Mild, Anxiety, 04/26/13) Pt states she requires Benadryl to calm her down if she takes Ultram or Toradol. Does not have a true allergy to Ultram. Home Medications Albuterol Sulfate 1 Puff Puff, 2 PUFF IH Q4H PRN for SHORTNESS OF BREATH 1 PUFF = 90 MCG Prescribed by: ELPIDIO CARTAGENA on 12/21/181513 Azithromycin 250 Mg Tablet, 250 MG PO UD TAKE 2 TABLETS TODAY, THEN TAKE 1 TABLET DAILY FOR 4 MORE DAYS Prescribed by: ELPIDIO CARTAGENA on 12/21/181513 Hydrocodone Bit/Acetaminophen 1 Tab Tab, 1 EACH PO Q4-6HR PRN for PAIN-MODERATE Prescribed by: ELPIDIO CARTAGENA on 2/8/19 1514 Methylprednisolone 4 Mg Tab.ds.pk, 4 MG PO UD Prescribed by: ELPIDIO CARTAGENA on 12/21/18 1514 Patient Home Medication List Home Medication List Reviewed: Yes Review of Systems Review of Systems Constitutional: No chills, No malaise EENTM: No ear discharge, No ear pain Respiratory: No cough, No short of breath Cardiovascular: see HPI, chest pain; No edema Gastrointestinal: No abdominal pain, No constipation, No diarrhea, No dysphagia , No nausea, No vomiting Genitourinary: No discharge, No dysuria : No (tubal ligation) Past Uvubhnw-Npusaj-Iymcco Hx Patient Social History Alcohol Use: Denies Use Recreational Drug Use: No Smoking Status: Current Everyday Smoker Type Used: Cigarettes 2nd Hand Smoke Exposure: Yes Recent Foreign Travel: No Contact w/Someone Who Travel: No Recent Infectious Disease Expo: No Recent Hopitalizations: No Immunizations Up To Date Tetanus Booster (TDap): Less than 5yrs PED Vaccines UTD: Yes Date of Pneumonia Vaccine: Nov 04, 2013 Date of Influenza Vaccine: Jul 14, 2014 Seasonal Allergies Seasonal Allergies: No Past Medical History Surgeries: Yes (LEFT OVARY REMOVED, CYST REMOVED FROM BREAST) Bladder Surgery, Hysterectomy, 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 Respiratory: Yes Asthma, Chronic Bronchitis Cardiac: No Neurological: No Reproductive Disorders: No 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 Sexually Transmitted Disease: No HIV/AIDS: No Genitourinary: Yes Bladder Infection, Kidney Stones Gastrointestinal: Yes (gastric erosions, CHRONIC ABDOMINAL PAIN) Ulcer, Gall Bladder Disease Musculoskeletal: Yes (RESTLESS LEG SYNDROME) Arthritis Endocrine: No HEENT: No Cancer: No Psychosocial: Yes Anxiety, Depression Integumentary: No Blood Disorders: No Family Medical History Abdominal aortic aneurysm 19 FATHER Cancer of mouth GRANDMOTHER Diabetes mellitus 19 MOTHER Thyroid disease 19 MOTHER Physical Exam Vital Signs Vital Signs - First Documented 12/31/18 08:40 Temp 98.4 Pulse 114 Resp 20 B/P (MAP) 129/104 (112) Pulse Ox 97 O2 Delivery Room Air Capillary Refill : Less Than 3 Seconds General Appearance: WD/WN, moderate distress (tearful) HEENT: PERRL/EOMI, normal ENT inspection, TMs normal, pharynx normal Neck: non-tender, full range of motion, supple, normal inspection Cardiovascular: normal peripheral pulses, regular rate, rhythm, no edema Respiratory: lungs clear, normal breath sounds, no respiratory distress, no accessory muscle use, other (left chest wall lower ribs and flank are tender to light palpation.) Gastrointestinal: normal bowel sounds, non tender, soft Neurologic/Psychiatric: no motor/sensory deficits, alert, normal mood/affect, oriented x 3 Skin: normal color, warm/dry, other (one small erythematous ulcerated spot consistent with a previous vesicle and a couple of melanotic scars) Progress/Results/Core Measures Results/Orders Vital Signs/I&O 12/31/18 08:40 Temp 98.4 Pulse 114 Resp 20 B/P (MAP) 129/104 (112) Pulse Ox 97 O2 Delivery Room Air Blood Pressure Mean: 112 Progress Progress Note : Time: 09:04 Progress Note At this point it's almost bordering postherpetic neuralgia versus shingles. Since she can't take anticonvulsants because of the hallucinations we can try low-dose of TCAs as well as some topical capsaicin and lidocaine gel. We'll send her some oxycodone for breakthrough pain and send her back to primary care. Departure Impression Primary Impression: Herpes zoster Qualified Codes: B02.9 - Zoster without complications Disposition: 01 HOME, SELF-CARE Condition: Stable Departure-Patient Inst. Decision time for Depature: 09:05 Referrals: NO,LOCAL PHYSICIAN (PCP/Family) Primary Care Physician Patient Instructions: Shingles (DC) Add. Discharge Instructions: Start using amitriptyline 1 tablet at night and follow-up with primary care within the next week to increase your dosage as needed. Use Tylenol 1000 mg every 8 hours in addition to the diclofenac. Finish the methylprednisolone as prescribed. Obtain some Capsaicin gel and apply it every 4 hours as necessary for pain relief. You can also use the prescription lidocaine gel to apply 1 g every 4 hours as needed to numb the site. Finally if your pain still so strong that she cannot stand it you may use one tablet of oxycodone every 6 hours as needed. Oxycodone will cause drowsiness he should not drive or mix it with alcohol. We'll also cause constipation so you should use MiraLAX as necessary to keep your stools regular. All discharge instructions reviewed with patient and/or family. Voiced understanding. Scripts Amitriptyline HCl (Amitriptyline HCl) 10 Mg Tablet 10 MG PO HS for 14 Days, #14 TAB 0 Refills Prov: OZZY HINES 12/31/18 Oxycodone HCl/Acetaminophen (Oxycodone-Acetaminophen 5-325) 1 Each Tablet 1 EACH PO Q6H PRN for BREAKTHROUGH PAIN MDD 6, #14 TAB 0 Refills Prov: OZZY HINES 12/31/18 OZZY HINES Dec 31, 2018 09:02
[2018-12-31 09:25] VITALS: BP 121/87
[2018-12-31] MEDS ORDERED: oxyCODONE/APAP 5/325MG (PERCOCET 5) TABLET PO ONE (09:30)
== END 2018-12-31 09:30 | disposition home or self-care (01) ==
LOC: EDUNIT# 08:26 → ER 08:28
DX: B02.9 Zoster without complications (principal); J44.9 Chronic obstructive pulmonary disease, unspecified; F41.9 Anxiety disorder, unspecified; F32.9 Major depressive disorder, single episode, unspecified; G25.81 Restless legs syndrome; F17.210 Nicotine dependence, cigarettes, uncomplicated; Z98.890 Other specified postprocedural states; Z87.19 Personal history of other diseases of the digestive system; Z87.442 Personal history of urinary calculi; Z87.448 Personal history of other diseases of urinary system; Z90.710 Acquired absence of both cervix and uterus; Z80.0 Family history of malignant neoplasm of digestive organs; Z98.51 Tubal ligation status; Z88.6 Allergy status to analgesic agent; Z88.4 Allergy status to anesthetic agent; Z88.8 Allergy status to other drugs, medicaments and biological substances; Z79.51 Long term (current) use of inhaled steroids; Z79.52 Long term (current) use of systemic steroids
CPT/HCPCS: 99283

== ENCOUNTER 2019-01-08 09:38 | Emergency (ER) | payer SELFPAY ==
[~2019-01-08] VITALS: Ht 157.5 cm; Wt 63.5 kg
[~2019-01-08 09:38] MED LIST changes: +AMIT10TA6 PO; +OXYC-471 PO
--- NOTE | 2019-01-08 11:15 | ED General ---
General Chief Complaint: General Problems/Pain Stated Complaint: SHINGLES Nursing Triage Note: AMB TO ROOM REPORTS WAS DX WITH SHINGLES 2 WEEKS AGO. GIVEN MEDS CON'T TO HAVE PAIN NO LESIONS NOTED FROM SHINGLES. REPORTS OXYCODONE NOT HELPING. Nursing Sepsis Screen: No Definite Risk Source of Information: Patient Exam Limitations: No Limitations History of Present Illness Date Seen by Provider: Jan 08, 2019 Time Seen by Provider: 11:00 Initial Comments 48-year-old female who presents to the emergency room with complaints of shingles to her left side of her abdomen. She reports that she's had the shingles for 2 weeks and has been seen in the emergency room for similar complaints on 12/31/18. She is unable to take gabapentin and Lyrica due to hallucinations. She was prescribed oxycodone last week but reports that it is not helping her pain. She does not have any open lesions at this time there is no rash noted anywhere. There is some healed abrasions to the abdomen wall that has a well-formed scab. Timing/Duration: Other (2 weeks) Associated Systoms: Denies Symptoms Allergies and Home Medications Allergies Coded Allergies: lorazepam (Unverified Allergy, Mild, "JITTERY", 05/20/09) dicyclomine (Unverified Allergy, Unknown, 07/07/14) ketorolac tromethamine (Unverified Allergy, Unknown, 06/04/14) prochlorperazine (Verified Allergy, Unknown, "JITTERY", 06/17/08) promethazine (Verified Allergy, Unknown, CONFUSED, AGITATED, 06/17/08) tramadol HCl (Verified Adverse Reaction, Mild, Anxiety, 04/26/13) Pt states she requires Benadryl to calm her down if she takes Ultram or Toradol. Does not have a true allergy to Ultram. Home Medications Albuterol Sulfate 1 Puff Puff, 2 PUFF IH Q4H PRN for SHORTNESS OF BREATH 1 PUFF = 90 MCG Prescribed by: ELPIDIO CARTAGENA on 12/21/18 151 Amitriptyline HCl 10 Mg Tablet, 10 MG PO HS Prescribed by: OZZY HINES on 12/31/18 0913 Hydrocodone Bit/Acetaminophen 1 Tab Tab, 1 EACH PO Q4-6HR PRN for PAIN-MODERATE Prescribed by: ELPIDIO CARTAGENA on 12/21/18 1514 Methylprednisolone 4 Mg Tab.ds.pk, 4 MG PO UD Prescribed by: ELPIDIO CARTAGENA on 12/21/18 1514 Oxycodone HCl/Acetaminophen 1 Each Tablet, 1 EACH PO Q6H PRN for BREAKTHROUGH PAIN Prescribed by: OZZY HINES on 12/31/18 0913 Oxycodone HCl/Acetaminophen 1 Each Tablet, 1 EACH PO Q6H PRN for PAIN-MODERATE Prescribed by: ELPIDIO CARTAGENA on 01/08/19 1153 Patient Home Medication List Home Medication List Reviewed: Yes Review of Systems Review of Systems Constitutional: no symptoms reported, see HPI Skin: see HPI, other (Pain to the skin over her left side of her abdomen) All Other Systems Reviewed Negative Unless Noted: Yes Past Bxfvwsc-Iavogp-Gyvmzs Hx Past Med/Social Hx: Reviewed Nursing Past Med/Soc Hx Patient Social History Alcohol Use: Denies Use Recreational Drug Use: No Smoking Status: Current Everyday Smoker Type Used: Cigarettes 2nd Hand Smoke Exposure: Yes Recent Foreign Travel: No Contact w/Someone Who Travel: No Recent Infectious Disease Expo: No Recent Hopitalizations: No Immunizations Up To Date Tetanus Booster (TDap): Less than 5yrs PED Vaccines UTD: Yes Date of Pneumonia Vaccine: Nov 04, 2013 Date of Influenza Vaccine: Jul 14, 2014 Seasonal Allergies Seasonal Allergies: No Past Medical History Surgeries: Yes (LEFT OVARY REMOVED, CYST REMOVED FROM BREAST) Bladder Surgery, Hysterectomy, 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 Respiratory: Yes Asthma, Chronic Bronchitis Cardiac: No Neurological: No Reproductive Disorders: No 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 Sexually Transmitted Disease: No HIV/AIDS: No Genitourinary: Yes Bladder Infection, Kidney Stones Gastrointestinal: Yes (gastric erosions, CHRONIC ABDOMINAL PAIN) Ulcer, Gall Bladder Disease Musculoskeletal: Yes (RESTLESS LEG SYNDROME) Arthritis Endocrine: No HEENT: No Cancer: No Psychosocial: Yes Anxiety, Depression Integumentary: No Blood Disorders: No Family Medical History Reviewed Nursing Family Hx Abdominal aortic aneurysm 19 FATHER Cancer of mouth GRANDMOTHER Diabetes mellitus 19 MOTHER Thyroid disease 19 MOTHER Physical Exam Vital Signs Vital Signs - First Documented 01/08/19 01/08/19 10:12 12:02 Temp 96.8 Pulse 90 Resp 18 B/P (MAP) 146/98 (114) Pulse Ox 100 O2 Delivery Room Air Capillary Refill : Less Than 3 Seconds Height, Weight, BMI Height: 5'2.00" Weight: 140lbs. 4.0oz. 63.700113rg; 30.91 BMI Method:Stated General Appearance: No Apparent Distress, WD/WN Eyes: Bilateral Eye Normal Inspection, Bilateral Eye PERRL, Bilateral Eye EOMI Respiratory: Chest Non Tender, Lungs Clear, Normal Breath Sounds, No Accessory Muscle Use, No Respiratory Distress Cardiovascular: Regular Rate, Rhythm, No Edema, No Gallop, No JVD, No Murmur, Normal Peripheral Pulses Gastrointestinal: Normal Bowel Sounds, No Organomegaly, No Pulsatile Mass, Non Tender, Soft Neurologic/Psychiatric: Alert, Oriented x3, Normal Mood/Affect Skin: Normal Color, Warm/Dry, Other (Pain to the left abdominal wall. She does have abrasions that have well-formed scabs on them abdominal wall. Left side.) Progress/Results/Core Measures Suspected Sepsis Recent Fever Within 48 Hours: No Infection Criteria Present: None New/Unexplained Altered Menta: No Sepsis Screen: No Definite Risk SIRS Temperature:96.8 Pulse: 90 Respiratory Rate: 18 Blood Pressure 146 /98 Mean: 114 Results/Orders My Orders Orders - ELPIDIO CARTAGENA Oxycodone/Apap 5/325mg Tablet (Percocet (01/08/19 12:00) Vital Signs/I&O Capillary Refill : Less Than 3 Seconds Blood Pressure Mean: 114 Departure Impression Primary Impression: Evelin Disposition: 01 HOME, SELF-CARE Condition: Stable/Unchanged Departure-Patient Inst. Decision time for Depature: 11:49 Referrals: NO,LOCAL PHYSICIAN (PCP/Family) Primary Care Physician Patient Instructions: Evelin (KORY) Add. Discharge Instructions: Take medications as directed. You may use Tylenol and ibuprofen in addition to pain medication. Follow-up with her primary care provider within 1 week for recheck. Return back to the emergency room for worsening symptoms or concerns as needed. All discharge instructions reviewed with patient and/or family. Voiced understanding. Scripts Oxycodone HCl/Acetaminophen (Oxycodone-Acetaminophen 5-325) 1 Each Tablet 1 EACH PO Q6H PRN for PAIN-MODERATE MDD 6, #10 TAB Prov: ELPIDIO CARTAGENA 01/08/19 ELPIDIO CARTAGENA Jan 08, 2019 11:15
[2019-01-08] MEDS ORDERED: OXYC-471 PO (11:53)
[2019-01-08] MEDS ORDERED: oxyCODONE/APAP 5/325MG (PERCOCET 5) TABLET PO ONE (12:00)
[2019-01-08 12:02] VITALS: BP 140/93
== END 2019-01-08 12:02 | disposition home or self-care (01) ==
LOC: EDUNIT# 09:38 → ER 09:39
DX: B02.9 Zoster without complications (principal); J44.9 Chronic obstructive pulmonary disease, unspecified; F41.9 Anxiety disorder, unspecified; F32.9 Major depressive disorder, single episode, unspecified; F17.210 Nicotine dependence, cigarettes, uncomplicated; Z98.51 Tubal ligation status; Z87.442 Personal history of urinary calculi; Z87.448 Personal history of other diseases of urinary system; Z80.0 Family history of malignant neoplasm of digestive organs; Z87.19 Personal history of other diseases of the digestive system; Z90.710 Acquired absence of both cervix and uterus; Z88.8 Allergy status to other drugs, medicaments and biological substances; Z88.6 Allergy status to analgesic agent; Z88.4 Allergy status to anesthetic agent; Z79.51 Long term (current) use of inhaled steroids; Z79.52 Long term (current) use of systemic steroids
CPT/HCPCS: 99283

== ENCOUNTER 2019-02-08 08:17 | Emergency (ER) | payer SELFPAY ==
[~2019-02-08] VITALS: Ht 157.5 cm; Wt 63.5 kg
[2019-02-08] MEDS ORDERED: morphine INJ 10 MG/ML 1ML (SYR OR VIAL) IVP STA (08:29)
[2019-02-08 08:53] LABS: BASOPHILS % (AUTO) 0 % (0-10); EOSINOPHILS # (AUTO) 0.4 10^3/uL (0.0-0.3); EOSINOPHILS % (AUTO) 3 % (0-10); HEMATOCRIT 39 % (35-52); HEMOGLOBIN 13.4 G/DL (11.5-16.0); LYMPHOCYTES # (AUTO) 2.7 X 10^3 (1.0-4.0); LYMPHOCYTES % (AUTO) 22 % (12-44); MEAN CORPUSCULAR HEMOGLOBIN 31 PG (25-34); MEAN CORPUSCULAR HGB CONC 35 G/DL (32-36); MEAN CORPUSCULAR VOLUME 89 FL (80-99); MEAN PLATELET VOLUME 9.4 FL (7.4-10.4); MONOCYTES # (AUTO) 0.8 X 10^3 (0.0-1.0); MONOCYTES % (AUTO) 6 % (0-12); NEUTROPHILS # (AUTO) 8.2 X 10^3 (1.8-7.8); NEUTROPHILS % (AUTO) 68 % (42-75); PLATELET COUNT 391 10^3/uL (130-400); RED CELL DISTRIBUTION WIDTH 12.5 % (10.0-14.5); WHITE BLOOD COUNT 12.1 10^3/uL (4.3-11.0)
[2019-02-08 09:09] LABS: ALANINE AMINOTRANSFERASE 15 U/L (0-55); ALBUMIN 4.2 GM/DL (3.2-4.5); ALKALINE PHOSPHATASE 79 U/L (40-136); BILIRUBIN,TOTAL 0.4 MG/DL (0.1-1.0); BUN/CREATININE RATIO 12; CALCIUM 9.8 MG/DL (8.5-10.1); CARBON DIOXIDE 23 MMOL/L (21-32); CHLORIDE 106 MMOL/L (98-107); CREATININE SERUM 0.83 MG/DL (0.60-1.30); GFR ESTIMATED > 60; GLUCOSE 107 MG/DL (70-105); POTASSIUM 3.6 MMOL/L (3.6-5.0); SODIUM 142 MMOL/L (135-145); TOTAL PROTEIN 6.9 GM/DL (6.4-8.2)
[2019-02-08 09:12] LABS: BILIRUBIN,URINE NEGATIVE (NEGATIVE); CLARITY,URINE CLEAR; COLOR,URINE YELLOW; GLUCOSE, URINE (UA) NEGATIVE (NEGATIVE); KETONES,URINE NEGATIVE (NEGATIVE); LEUKOCYTE ESTERASE ,URINE 3+ (NEGATIVE); NITRITE,URINE NEGATIVE (NEGATIVE); PH,URINE 6 (5-9); PROTEIN,URINE 3+ (NEGATIVE); UROBILINOGEN,URINE NORMAL (NORMAL)
--- NOTE | 2019-02-08 09:21 | NUR ---
PT COMPLAINS OF PAIN AND NAUSEA. NOTIFIED.
[2019-02-08 09:24] LABS: BACTERIA,URINE MODERATE /HPF; SQUAMOUS EPITHELIAL CELL,UR 0-2 /HPF; WBC,URINE TNTC /HPF
[2019-02-08] MEDS ORDERED: ONDANSETRON 4 MG/2 ML (SDV) Z0FRAN IVP ONE (09:30)
[2019-02-08] MEDS ORDERED: fentaNYL INJECTION 100 MCG/2 ML AMP IVP ONE ×2 (09:30→11:15)
[2019-02-08] MEDS ORDERED: cefTRIAXone FOR IV USE 1,000 MG in WATER (STERILE) FOR INJECTION 10 ML IV ONE (09:45)
--- NOTE | 2019-02-08 09:57 | NUR ---
REQUESTING A SANDWHICH. NOTIFIED HER I JUST GAVE HER SOMETHING FOR NAUSEA ET I WANT HER STOMACH TO REST.
[2019-02-08] MEDS ORDERED: AZITHROMYCIN 250 MG TAB (ZITHROMAX) PO ONE (10:15)
--- NOTE | 2019-02-08 11:10 | NUR ---
CLEAR LIQUID DIET ORDERED FOR PT.
--- NOTE | 2019-02-08 11:11 | NUR ---
PT WANTING TO LEAVE AND COME BACK LATER. PT NOTIFIED SHE WOULD NOT BE ABLE TO LEAVE AND IF SHE DID IT WOULD BE AMA.
--- NOTE | 2019-02-08 11:12 | NUR ---
DR NOTIFIED WHO CAME INTO THE ROOM.
--- NOTE | 2019-02-08 11:30 | NUR ---
CLEAR LIQUIDS GIVEN TO PT.
--- NOTE | 2019-02-08 12:25 | Consultation ---
History of Present Illness History of Present Illness Patient Consulted On(ericka/time) 02/08/19 12:20 Time Seen by Provider: 12:01 History of Present Illness Surgery asked to consent regarding possible thrombosed external hemorrhoid. HPI: pt is a 48yo female who presents because of a "bulging painful bubble in my butt and burning when I pee". She also thought there may be pus coming out of it. Pt first noted the bubble yesterday and states she has never had anything like this before; "I've never had hemorrhoids". Rating the pain as 7 out of 10 right now. Nothing makes the pain better, sitting on the area makes it worse. Allergies and Home Medications Allergies Coded Allergies: lorazepam (Unverified Allergy, Mild, "JITTERY", 05/20/09) dicyclomine (Unverified Allergy, Unknown, 07/07/14) ketorolac tromethamine (Unverified Allergy, Unknown, 06/04/14) prochlorperazine (Verified Allergy, Unknown, "JITTERY", 06/17/08) promethazine (Verified Allergy, Unknown, CONFUSED, AGITATED, 06/17/08) tramadol HCl (Verified Adverse Reaction, Mild, Anxiety, 04/26/13) Pt states she requires Benadryl to calm her down if she takes Ultram or Toradol. Does not have a true allergy to Ultram. Home Medications Albuterol Sulfate 1 Puff Puff, 2 PUFF IH Q4H PRN for SHORTNESS OF BREATH 1 PUFF = 90 MCG Prescribed by: ELPIDIO CARTAGENA on 12/21/181513 Amitriptyline HCl 10 Mg Tablet, 10 MG PO HS Prescribed by: OZZY HINES on 12/31/18912 Hydrocodone Bit/Acetaminophen 1 Tab Tab, 1 EACH PO Q4-6HR PRN for PAIN-MODERATE Prescribed by: ELPIDIO CARTAGENA on 12/21/18 151 Methylprednisolone 4 Mg Tab.ds.pk, 4 MG PO UD Prescribed by: ELPIDIO CARTAGENA on 12/21/181513 Oxycodone HCl/Acetaminophen 1 Each Tablet, 1 EACH PO Q6H PRN for BREAKTHROUGH PAIN Prescribed by: OZZY HINES on 12/31/18912 Oxycodone HCl/Acetaminophen 1 Each Tablet, 1 EACH PO Q6H PRN for PAIN-MODERATE Prescribed by: ELPIDIO CARTAGENA on 01/08/19 1153 Patient Home Medication List Home Medication List Reviewed: Yes Past Jeikglw-Yaienr-Clyftn Hx Patient Social History Alcohol Use: Denies Use Recreational Drug Use: No Smoking Status: Current Everyday Smoker Type Used: Cigarettes 2nd Hand Smoke Exposure: Yes Recent Foreign Travel: No Contact w/Someone Who Travel: No Recent Infectious Disease Expo: No Recent Hopitalizations: No Immunizations Up To Date Tetanus Booster (TDap): Less than 5yrs PED Vaccines UTD: Yes Date of Pneumonia Vaccine: Nov 04, 2013 Date of Influenza Vaccine: Jul 14, 2014 Seasonal Allergies Seasonal Allergies: No Surgeries History of Surgeries: Yes (LEFT OVARY REMOVED, CYST REMOVED FROM BREAST) Surgeries: Bladder Surgery, Hysterectomy, 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 Respiratory History of Respiratory Disorde: Yes Respiratory Disorders: Asthma, Chronic Bronchitis Cardiovascular History of Cardiac Disorders: No Neurological History of Neurological Disord: No Reproductive System Hx Reproductive Disorders: No Sexually Transmitted Disease: No HIV/AIDS: No 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 Genitourinary History of Genitourinary Disor: Yes Genitourinary Disorders: Bladder Infection, Kidney Stones Gastrointestinal History of Gastrointestinal Di: Yes (gastric erosions, CHRONIC ABDOMINAL PAIN) Gastrointestinal Disorders: Ulcer, Gall Bladder Disease Musculoskeletal History of Musculoskeletal Dis: Yes (RESTLESS LEG SYNDROME) Musculoskeletal Disorders: Arthritis Endocrine History of Endocrine Disorders: No HEENT History of HEENT Disorders: No Cancer History of Cancer: No Psychosocial History of Psychiatric Problem: Yes Behavioral Health Disorders: Anxiety, Depression Integumentary History of Skin or Integumenta: No Blood Transfusions History of Blood Disorders: No Family Medical History Significant Family History: Heart Disease (father) Family Medial History: Abdominal aortic aneurysm 19 FATHER Cancer of mouth GRANDMOTHER Diabetes mellitus 19 MOTHER Thyroid disease 19 MOTHER Review of Systems-General Constitutional: chills, diaphoresis, malaise, weakness EENTM: No blurred vision, No mouth swelling, No epistaxis, No throat swelling Respiratory: No cough, No dyspnea on exertion Cardiovascular: No chest pain, No edema, No palpitations Gastrointestinal: No abdominal pain; constipation; No hematemesis, No jaundice Genitourinary: dysuria, frequency; No hematuria Musculoskeletal: back pain, joint pain, joint swelling, muscle stiffness Skin: No change in color, No change in hair/nails Psychiatric/Neurological: Anxiety, Depressed; Denies Seizure, Denies Tremors Physical Exam-General Problems Physical Exam Vital Signs Vital Signs - First Documented 02/08/19 08:25 Temp 98.0 Pulse 108 Resp 16 B/P (MAP) 128/112 (117) Pulse Ox 100 O2 Delivery Room Air Capillary Refill : Less Than 3 Seconds General Appearance: WD/WN, mild distress Eyes: Bilateral Eye PERRL, Bilateral Eye EOMI HEENT: pharynx normal; No scleral icterus (R), No scleral icterus (L) Neck: supple, normal inspection Respiratory: chest non-tender, lungs clear, normal breath sounds, no respiratory distress, no accessory muscle use Cardiovascular: regular rate, rhythm, no edema, no murmur Gastrointestinal: normal bowel sounds, non tender, soft, no organomegaly, no pulsatile mass, other (pt has a thrombosed external hemorrhoid) Extremities: no pedal edema, no calf tenderness, normal capillary refill 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, no motor/sensory deficits, alert, normal mood/affect, oriented x 3 Skin: normal color, warm/dry Lymphatic: no adenopathy (neck, axilla or groin) Data Review Labs Laboratory Tests 02/08/19 08:40: White Blood Count 12.1H, Red Blood Count 4.36, Hemoglobin 13.4, Hematocrit 39, Mean Corpuscular Volume 89, Mean Corpuscular Hemoglobin 31, Mean Corpuscular Hemoglobin Concent 35, Red Cell Distribution Width 12.5, Platelet Count 391, Mean Platelet Volume 9.4, Neutrophils (%) (Auto) 68, Lymphocytes (%) (Auto) 22, Monocytes (%) (Auto) 6, Eosinophils (%) (Auto) 3, Basophils (%) (Auto) 0, Neutrophils # (Auto) 8.2H, Lymphocytes # (Auto) 2.7, Monocytes # (Auto) 0.8, Eosinophils # (Auto) 0.4H, Basophils # (Auto) 0.0, Sodium Level 142, Potassium Level 3.6, Chloride Level 106, Carbon Dioxide Level 23, Anion Gap 13, Blood Urea Nitrogen 10, Creatinine 0.83, Estimat Glomerular Filtration Rate > 60, BUN/ Creatinine Ratio 12, Glucose Level 107H, Calcium Level 9.8, Corrected Calcium 9.6, Total Bilirubin 0.4, Aspartate Amino Transf (AST/SGOT) 18, Alanine Aminotransferase (ALT/SGPT) 15, Alkaline Phosphatase 79, C-Reactive Protein High Sensitivity 0.20, Total Protein 6.9, Albumin 4.2 02/08/19 09:00: Urine Color YELLOW, Urine Clarity CLEAR, Urine pH 6, Urine Specific [place] 1.025H, Urine Protein 3+H, Urine Glucose (UA) NEGATIVE, Urine Ketones NEGATIVE, Urine Nitrite NEGATIVE, Urine Bilirubin NEGATIVE, Urine Urobilinogen NORMAL, Urine Leukocyte Esterase 3+H, Urine RBC (Auto) 4+H, Urine RBC 5-10H, Urine WBC TNTCH, Urine Squamous Epithelial Cells 0-2, Urine Crystals NONE, Urine Bacteria MODERATEH, Urine Casts NONE, Urine Mucus NEGATIVE, Urine Culture Indicated YES 02/08/19 10:03: Lactic Acid Level 0.79 Assessment/Plan Assessment/Plan Assessment/Plan Thrombosed External Hemorrhoid I explained to pt how you can get thrombosed hemorrhoids and the procedure to fix the problem. Basically the skin will be infiltrated with local and stab incision with #11 blade will be made. Removal of clots should give immediate relief. Sitz baths for the next few days and keeping incision open will help it heal. Dr. Crespo will perform the procedure. All questions answered to her satisfaction. MARIBELL REGALADO DO Feb 08, 2019 12:25
[2019-02-08] MEDS ORDERED: LIDOCAINE/EPI 2% 1:100,00 (XYLOCAINE) 20 ML VIAL INJ ONE (12:30)
--- NOTE | 2019-02-08 13:07 | ED General ---
General Chief Complaint: - Urinary Stated Complaint: PAIN W/URINATION RECTAL PAIN Nursing Triage Note: ARRIVED VIA AMB TO ROOM 10. COMPLAINS OF BURNING WHEN SHE PEES AND HAS A "BUBBLE" COMING OUT OF HER BUT THAT SHE THINKS HAS PUSS IN IT. Nursing Sepsis Screen: No Definite Risk Source of Information: Patient Exam Limitations: No Limitations History of Present Illness Date Seen by Provider: Feb 08, 2019 Time Seen by Provider: 08:26 Initial Comments This 48-year-old woman presents to emergency room with multiple complaints. First she complains of dysuria and pelvic discomfort especially after urinating. Second, she has a bulging coming from her rectum which she says has drained some pus. She is afebrile. The bulging out the rectum and the dysuria both been present for a few days. She tried an [id number]-[id number] hemorrhoid product for what she presumes to be a hemorrhoid but it was not effective. Allergies and Home Medications Allergies Coded Allergies: lorazepam (Unverified Allergy, Mild, "JITTERY", 05/20/09) dicyclomine (Unverified Allergy, Unknown, 07/07/14) ketorolac tromethamine (Unverified Allergy, Unknown, 06/04/14) prochlorperazine (Verified Allergy, Unknown, "JITTERY", 06/17/08) promethazine (Verified Allergy, Unknown, CONFUSED, AGITATED, 06/17/08) tramadol HCl (Verified Adverse Reaction, Mild, Anxiety, 04/26/13) Pt states she requires Benadryl to calm her down if she takes Ultram or Toradol. Does not have a true allergy to Ultram. Home Medications Albuterol Sulfate 1 Puff Puff, 2 PUFF IH Q4H PRN for SHORTNESS OF BREATH 1 PUFF = 90 MCG Prescribed by: ELPIDIO CARTAGENA on 12/21/18 151 Amitriptyline HCl 10 Mg Tablet, 10 MG PO HS Prescribed by: OZZY HINES on 12/31/18 09 Cephalexin 500 Mg Capsule, 500 MG PO QID Prescribed by: CEZAR ELLINGTON on 02/08/19 1311 Hydrocodone Bit/Acetaminophen 1 Tab Tab, 1 EACH PO Q4-6HR PRN for PAIN-MODERATE Prescribed by: ELPIDIO CARTAGENA on 12/21/18 1514 Hydrocodone Bit/Acetaminophen 1 Tab Tab, 1-2 TAB PO Q6H PRN for PAIN-MODERATE Prescribed by: CEZAR ELLINGTON on 02/08/19 1311 Methylprednisolone 4 Mg Tab.ds.pk, 4 MG PO UD Prescribed by: ELPIDIO CARTAGENA on 12/21/18 1514 Oxycodone HCl/Acetaminophen 1 Each Tablet, 1 EACH PO Q6H PRN for BREAKTHROUGH PAIN Prescribed by: OZZY HINES on 12/31/18 0913 Oxycodone HCl/Acetaminophen 1 Each Tablet, 1 EACH PO Q6H PRN for PAIN-MODERATE Prescribed by: ELPIDIO CARTAGENA on 01/08/19 1153 Patient Home Medication List Home Medication List Reviewed: Yes Review of Systems Review of Systems Constitutional: no symptoms reported EENTM: no symptoms reported Respiratory: no symptoms reported Cardiovascular: no symptoms reported Gastrointestinal: see HPI Genitourinary: see HPI : No Musculoskeletal: no symptoms reported Skin: no symptoms reported Psychiatric/Neurological: No Symptoms Reported Hematologic/Lymphatic: No Symptoms Reported Immunological/Allergic: no symptoms reported Past Vzbgyuw-Rldzkz-Szwgdk Hx Past Med/Social Hx: Reviewed and Corrections made Patient Social History Alcohol Use: Denies Use Recreational Drug Use: No Smoking Status: Current Everyday Smoker Type Used: Cigarettes 2nd Hand Smoke Exposure: Yes Recent Foreign Travel: No Contact w/Someone Who Travel: No Recent Infectious Disease Expo: No Recent Hopitalizations: No Immunizations Up To Date Tetanus Booster (TDap): Less than 5yrs PED Vaccines UTD: Yes Date of Pneumonia Vaccine: Nov 04, 2013 Date of Influenza Vaccine: Jul 14, 2014 Seasonal Allergies Seasonal Allergies: No Past Medical History Surgeries: Yes (LEFT OVARY REMOVED, CYST REMOVED FROM BREAST) Bladder Surgery, Breast (cyst), Hysterectomy, 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 Respiratory: Yes Asthma, Chronic Bronchitis Cardiac: No Neurological: No : No Reproductive Disorders: No 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, 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 Sexually Transmitted Disease: No HIV/AIDS: No Genitourinary: Yes Bladder Infection, Kidney Stones Gastrointestinal: Yes (gastric erosions, CHRONIC ABDOMINAL PAIN) Ulcer, Gall Bladder Disease Musculoskeletal: Yes (RESTLESS LEG SYNDROME) Arthritis Endocrine: No HEENT: No Cancer: No Psychosocial: Yes Anxiety, Depression Integumentary: No Blood Disorders: No Family Medical History Abdominal aortic aneurysm 19 FATHER Cancer of mouth GRANDMOTHER Diabetes mellitus 19 MOTHER Thyroid disease 19 MOTHER Heart Disease (father) Physical Exam Vital Signs Vital Signs - First Documented 02/08/19 08:25 Temp 98.0 Pulse 108 Resp 16 B/P (MAP) 128/112 (117) Pulse Ox 100 O2 Delivery Room Air Capillary Refill : Less Than 3 Seconds Height, Weight, BMI Height: 5'2.00" Weight: 140lbs. 4.0oz. 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 Skin was cleansed with alcohol pads and hemorrhoid was anesthetized with approximately 1 mL 2 percent lidocaine with epinephrine. A 1 cm incision was then made over the center of the hemorrhoid. Hemostats were used to evacuate the clot from the hemorrhoid. Betadine prep was used. Procedure was uncomplicated. Progress/Results/Core Measures Suspected Sepsis Recent Fever Within 48 Hours: No Infection Criteria Present: Suspected New Infection New/Unexplained Altered Menta: No Sepsis Screen: No Definite Risk SIRS Temperature:98.0 Pulse: 108 Respiratory Rate: 16 Blood Pressure 128 /112 Mean: 117 Results/Orders Lab Results My Orders Medications Given in ED Vital Signs/I&O Capillary Refill : Less Than 3 Seconds Blood Pressure Mean: 117 Progress Note : Progress Note Patient was found to have urinary tract infection by urinalysis. She was treated with Rocephin. After consultation with Dr. Tovar, the thrombosed external hemorrhoid was evacuated. Patient also was wondering about the possibility of STI's. Screening for gonorrhea and chlamydia was added to the urine studies. Patient was empirically treated for gonorrhea with the Rocephin and azithromycin was added. Patient's pain was treated with fentanyl and morphine. Departure Impression Primary Impression: Urinary tract infection Qualified Codes: N39.0 - Urinary tract infection, site not specified Additional Impression: Thrombosed hemorrhoids Disposition: 01 HOME, SELF-CARE Condition: Improved Departure-Patient Inst. Decision time for Depature: 12:45 Referrals: NO,LOCAL PHYSICIAN (PCP/Family) Primary Care Physician Patient Instructions: Hemorrhoids, Urinary Tract Infection, Adult (DC) Add. Discharge Instructions: Complete your antibiotics as prescribed. Drink plenty of clear liquids. Follow-up with your primary care provider as soon as possible and review urine culture results. Use your pain medication as prescribed. After bowel movements, white very carefully. It may be helpful to wash off in the shower or do a sitz bath in warm soapy water after a bowel movement for the next several days. Keep your stool soft, potentially with a stool softener or a fiber supplement. Return to care if you have worsening symptoms. All discharge instructions reviewed with patient and/or family. Voiced understanding. Scripts Hydrocodone Bit/Acetaminophen (Hydrocodone/Acetaminophen 5/325mg Tablet) 1 Tab Tab 1-2 TAB PO Q6H PRN for PAIN-MODERATE MDD 10, #10 TAB Prov: CEZAR BANEGAS MD 02/08/19 Cephalexin (Keflex) 500 Mg Capsule 500 MG PO QID, #28 CAP Prov: CEZAR BANEGAS MD 02/08/19 CEZAR BANEGAS MD Feb 08, 2019 13:07
[2019-02-08] MEDS ORDERED: CEPH-507 PO (13:11)
[2019-02-08] MEDS ORDERED: ACHD5005 PO (13:11)
[2019-02-08 13:25] VITALS: BP 117/84
== END 2019-02-08 13:19 | disposition home or self-care (01) ==
LOC: EDUNIT# 08:17 → ER 08:20
DX: N39.0 Urinary tract infection, site not specified (principal); K64.5 Perianal venous thrombosis; J45.909 Unspecified asthma, uncomplicated; J42 Unspecified chronic bronchitis; F41.9 Anxiety disorder, unspecified; F32.9 Major depressive disorder, single episode, unspecified; F17.210 Nicotine dependence, cigarettes, uncomplicated; Z90.710 Acquired absence of both cervix and uterus; Z98.51 Tubal ligation status; Z88.8 Allergy status to other drugs, medicaments and biological substances; Z88.5 Allergy status to narcotic agent; Z88.6 Allergy status to analgesic agent; Z83.3 Family history of diabetes mellitus; Z80.0 Family history of malignant neoplasm of digestive organs
CPT/HCPCS: 36415; 45020; 51701; 80053; 81000; 83605; 85025; 86141; 87040; 87077; 87088; 87186

== ENCOUNTER 2019-03-18 13:37 | Emergency (ER) | payer MEDICAID, OTHER ==
[~2019-03-18] VITALS: Ht 157.5 cm; Wt 58.5 kg
[~2019-03-18 13:37] MED LIST changes: +CEPH-507 PO
[2019-03-18] MEDS ORDERED: LIDOCAINE 2% VISCOUS 15 ML UDC MM ONE (14:00)
[2019-03-18] MEDS ORDERED: PHENAZOPYRIDINE 100 MG (PYRIDIUM) TABLET PO ONE (14:00)
[2019-03-18 14:02] LABS: BILIRUBIN,URINE NEGATIVE (NEGATIVE); CLARITY,URINE CLEAR; COLOR,URINE YELLOW; GLUCOSE, URINE (UA) NEGATIVE (NEGATIVE); KETONES,URINE NEGATIVE (NEGATIVE); LEUKOCYTE ESTERASE ,URINE 2+ (NEGATIVE); NITRITE,URINE POSITIVE (NEGATIVE); PH,URINE 6.5 (5-9); PROTEIN,URINE NEGATIVE (NEGATIVE); UROBILINOGEN,URINE NORMAL (NORMAL)
--- NOTE | 2019-03-18 14:04 | ED GU-Female ---
General Chief Complaint: Abdominal/GI Problems Stated Complaint: ABD PAIN;PAIN WITH URINATION Nursing Triage Note: PATIENT STATES THAT SHE IS HAVING ABDOMINAL PAIN WELL PROBLEMS WITH HER HEMORRHOIDS. THIS HAS BEEN GOING ON FOR A WEEK. Nursing Sepsis Screen: Possible Sepsis Risk Source: patient Exam Limitations: no limitations History of Present Illness Date Seen by Provider: March 18, 2019 Time Seen by Provider: 14:02 Initial Comments To ER by private vehicle with reports of rectal pain 1 week. She has a history of hemorrhoids that were thrombosed at one point and had to be excised. She suspects this may be the case again, her pains been present for about 7 days. She denies nausea vomiting fevers or chills. Burning on urination for about a week as well. Timing/Duration: week Severity/Quality: moderate Radiation: none Activities at Onset: none Prior Genitourinary Problems: none Associated Symptoms: dysuria, urinary frequency Allergies and Home Medications Allergies Coded Allergies: lorazepam (Unverified Allergy, Mild, "JITTERY", 05/20/09) dicyclomine (Unverified Allergy, Unknown, 07/07/14) ketorolac tromethamine (Unverified Allergy, Unknown, 06/04/14) prochlorperazine (Verified Allergy, Unknown, "JITTERY", 06/17/08) promethazine (Verified Allergy, Unknown, CONFUSED, AGITATED, 06/17/08) tramadol HCl (Verified Adverse Reaction, Mild, Anxiety, 04/26/13) Pt states she requires Benadryl to calm her down if she takes Ultram or Toradol. Does not have a true allergy to Ultram. Home Medications Albuterol Sulfate 1 Puff Puff, 2 PUFF IH Q4H PRN for SHORTNESS OF BREATH 1 PUFF = 90 MCG Prescribed by: ELPIDIO CARTAGENA on 12/21/18 1510 Patient Home Medication List Home Medication List Reviewed: Yes Review of Systems Review of Systems Constitutional: see HPI EENTM: see HPI Respiratory: no symptoms reported Cardiovascular: no symptoms reported Genitourinary: see HPI, dysuria, frequency Musculoskeletal: no symptoms reported Skin: no symptoms reported Psychiatric/Neurological: No Symptoms Reported Past Zeutlmn-Celuhr-Yhpjxo Hx Patient Social History Alcohol Use: Denies Use Recreational Drug Use: No Smoking Status: Current Everyday Smoker Type Used: Cigarettes 2nd Hand Smoke Exposure: Yes Recent Foreign Travel: No Contact w/Someone Who Travel: No Recent Infectious Disease Expo: No Recent Hopitalizations: No Immunizations Up To Date Tetanus Booster (TDap): Less than 5yrs PED Vaccines UTD: Yes Date of Pneumonia Vaccine: Nov 04, 2013 Date of Influenza Vaccine: Jul 14, 2014 Seasonal Allergies Seasonal Allergies: No Past Medical History Surgeries: Yes (LEFT OVARY REMOVED, CYST REMOVED FROM BREAST) Bladder Surgery, Breast, Hysterectomy, 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 Respiratory: Yes Asthma, Chronic Bronchitis Cardiac: No Neurological: No Reproductive Disorders: No 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, 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 Sexually Transmitted Disease: No HIV/AIDS: No Genitourinary: Yes Bladder Infection, Kidney Stones Gastrointestinal: Yes (gastric erosions, CHRONIC ABDOMINAL PAIN) Ulcer, Gall Bladder Disease Musculoskeletal: Yes (RESTLESS LEG SYNDROME) Arthritis Endocrine: No HEENT: No Cancer: No Psychosocial: Yes Anxiety, Depression Integumentary: No Blood Disorders: No Family Medical History Abdominal aortic aneurysm 19 FATHER Cancer of mouth GRANDMOTHER Diabetes mellitus 19 MOTHER Thyroid disease 19 MOTHER Heart Disease Physical Exam Vital Signs Vital Signs - First Documented 03/18/19 13:45 Temp 98.1 Pulse 91 Resp 22 B/P (MAP) 127/94 (105) Pulse Ox 100 Capillary Refill : Less Than 3 Seconds Height, Weight, BMI Height: 5'2.00" Weight: 129lbs. 0oz. 58.903326mo; 30.91 BMI Method:Actual General Appearance: WD/WN, no apparent distress Neck: non-tender, full range of motion Cardiovascular: regular rate, rhythm, no murmur Respiratory: no respiratory distress, no accessory muscle use Rectal: other (genital exam done with Bran KAISER at the bedside. No perivaginal lesions, there is no acutely thrombosed external hemorrhoid, no fissures, no blood at the rectum. She does have a hemorrhoid at the posterior left side but it is not inflamed appearing.) Pelvic: normal external exam Neurologic/Psychiatric: alert, normal mood/affect, oriented x 3 Skin: normal color, warm/dry Progress/Results/Core Measures Suspected Sepsis Recent Fever Within 48 Hours: No Infection Criteria Present: Suspected New Infection New/Unexplained Altered Menta: No Sepsis Screen: Possible Sepsis Risk SIRS Temperature:98.1 Pulse: 91 Respiratory Rate: 22 Blood Pressure 127 /94 Mean: 105 Results/Orders Lab Results Laboratory Tests Test 03/18/19 13:45 03/18/19 13:53 Range/Units Urine Color YELLOW Urine Clarity CLEAR Urine pH 6.5 5-9 Urine Specific [place] 1.010 L 1.016-1.022 Urine Protein NEGATIVE NEGATIVE Urine Glucose (UA) NEGATIVE NEGATIVE Urine Ketones NEGATIVE NEGATIVE Urine Nitrite POSITIVE H NEGATIVE Urine Bilirubin NEGATIVE NEGATIVE Urine Urobilinogen NORMAL NORMAL MG/DL Urine Leukocyte Esterase 2+ H NEGATIVE Urine RBC (Auto) 1+ H NEGATIVE Urine RBC 0-2 /HPF Urine WBC 10-25 H /HPF Urine Squamous Epithelial Cells 10-25 H /HPF Urine Crystals NONE /LPF Urine Bacteria LARGE H /HPF Urine Casts NONE /LPF Urine Mucus NEGATIVE /LPF Urine Culture Indicated YES My Orders Orders - ANJELICA ANDERSEN APRN Ua Culture If Indicated (03/18/19 13:40) Drug Screen Stat (Urine) (03/18/19 14:00) Lidocaine 2% Viscous 15 Ml (Xylocaine Vi (03/18/19 14:00) Phenazopyridine Tablet (Pyridium Tablet) (03/18/19 14:00) Urine Culture (03/18/19 13:53) Medications Given in ED Current Medications Medications Dose Ordered Sig/Louis Route Start Time Stop Time Status Last Admin Dose Admin Lidocaine HCl 5 ml ONCE ONCE MM 03/18/19 14:00 03/18/19 14:01 DC 03/18/19 14:12 5 ML Phenazopyridine HCl 100 mg ONCE ONCE PO 03/18/19 14:00 03/18/19 14:01 DC 03/18/19 14:12 100 MG Vital Signs/I&O 03/18/19 13:45 Temp 98.1 Pulse 91 Resp 22 B/P (MAP) 127/94 (105) Pulse Ox 100 Capillary Refill : Less Than 3 Seconds Blood Pressure Mean: 105 Departure Impression Primary Impression: Urinary tract infection Qualified Codes: N30.00 - Acute cystitis without hematuria Disposition: HOME, SELF-CARE Condition: Stable Departure-Patient Inst. Decision time for Depature: 14:14 Referrals: NO,LOCAL PHYSICIAN (PCP/Family) Primary Care Physician Patient Instructions: Urinary Tract Infection, Adult (DC) Add. Discharge Instructions: 1. Call [facility] [phone] today to make an appointment to be seen within 1 week for recheck. Return to ER for any concerns. Antibiotics as directed for bladder infection. You may use a topical hemorrhoid cream over-the- counter if you need. I do want she did have this rechecked within 1 week to ensure improvement. All discharge instructions reviewed with patient and/or family. Voiced understanding. Scripts Sulfamethoxazole/Trimethoprim (Bactrim Ds Tablet) 1 Each Tablet 1 EACH PO BID, #10 TAB Prov: ANJELICA ANDERSEN APRN 03/18/19 ANJELICA ANDERSEN APRN March 18, 2019 14:04
[2019-03-18 14:08] LABS: BACTERIA,URINE LARGE /HPF; RBC,URINE 0-2 /HPF
[2019-03-18] MEDS ORDERED: SULF1TAB35 PO (14:15)
[2019-03-18 14:20] LABS: AMPHETAMINE SCREEN, URINE POSITIVE (NEGATIVE); BARBITURATE SCREEN URINE NEGATIVE (NEGATIVE); BENZODIAZEPINES SCREEN URINE NEGATIVE (NEGATIVE); CANNABINOID SCREEN, URINE NEGATIVE (NEGATIVE); COCAINE SCREEN URINE NEGATIVE (NEGATIVE); METHADONE STAT NEGATIVE (NEGATIVE); METHAMPHETAMINE SCREEN URINE S POSITIVE (NEGATIVE); OPIATE SCREEN URINE POSITIVE (NEGATIVE); OXYCODONE STAT NEGATIVE (NEGATIVE); PROPOXYPHENE STAT NEGATIVE (NEGATIVE); TRICYCLIC ANTIDEPRESSANTS SCRE NEGATIVE (NEGATIVE)
[2019-03-18] MEDS ORDERED: IBUPROFEN 800 MG (MOTRIN) TAB PO ONE (14:30)
[2019-03-18 14:32] VITALS: BP 127/94
== END 2019-03-18 14:32 | disposition home or self-care (01) ==
LOC: EDUNIT# 13:37 → ER 13:38
DX: N39.0 Urinary tract infection, site not specified (principal); J44.9 Chronic obstructive pulmonary disease, unspecified; F41.9 Anxiety disorder, unspecified; F32.9 Major depressive disorder, single episode, unspecified; F17.210 Nicotine dependence, cigarettes, uncomplicated; Z90.710 Acquired absence of both cervix and uterus; Z87.442 Personal history of urinary calculi; Z87.19 Personal history of other diseases of the digestive system; Z80.0 Family history of malignant neoplasm of digestive organs; Z87.448 Personal history of other diseases of urinary system; Z98.51 Tubal ligation status; Z88.8 Allergy status to other drugs, medicaments and biological substances; Z88.4 Allergy status to anesthetic agent; Z88.6 Allergy status to analgesic agent; Z88.1 Allergy status to other antibiotic agents
CPT/HCPCS: 80306; 81000; 87077; 87088; 87186; 99283

== ENCOUNTER 2019-05-11 17:58 | Emergency (ER) | payer MEDICAID ==
[~2019-05-11] VITALS: Ht 157.5 cm; Wt 58.5 kg
[~2019-05-11 17:58] MED LIST changes: +SULF1TAB35 PO
[2019-05-11] MEDS ORDERED: METOCLOPRAMIDE INJ 10 MG/2 ML (REGLAN) IVP STA (18:06)
[2019-05-11] MEDS ORDERED: FAMOTIDINE 20MG/2ML IV (PEPCID) IV STA (18:06)
[2019-05-11] MEDS ORDERED: morphine INJ 10 MG/ML 1ML (SYR OR VIAL) IVP STA (18:06)
[2019-05-11] MEDS ORDERED: NS IV 1000 ML 1,000 ML IV STA (18:06)
--- NOTE | 2019-05-11 18:16 | ED Abdominal Pain ---
General Chief Complaint: Abdominal/GI Problems Stated Complaint: ABD PAIN,VOMITING History of Present Illness Date Seen by Provider: May 11, 2019 Time Seen by Provider: 06:10 Initial Comments 48-year-old female presents with right upper quadrant abdominal pain, nausea, vomiting and diarrhea. Patient reports symptoms started 2 days ago after she ate some tacos. She states that she got or vomiting today. She did not have any fevers or chills. She is had multiple episodes of diarrhea with her vomiting. She denies any urinary symptoms. She does not have any cough, shortness of breath or chest pain. Allergies and Home Medications Allergies Coded Allergies: lorazepam (Unverified Allergy, Mild, "JITTERY", 05/20/09) dicyclomine (Unverified Allergy, Unknown, 07/07/14) ketorolac tromethamine (Unverified Allergy, Unknown, 06/04/14) prochlorperazine (Verified Allergy, Unknown, "JITTERY", 06/17/08) promethazine (Verified Allergy, Unknown, CONFUSED, AGITATED, 06/17/08) tramadol HCl (Verified Adverse Reaction, Mild, Anxiety, 04/26/13) Pt states she requires Benadryl to calm her down if she takes Ultram or Toradol. Does not have a true allergy to Ultram. Home Medications Albuterol Sulfate 1 Puff Puff, 2 PUFF IH Q4H PRN for SHORTNESS OF BREATH 1 PUFF = 90 MCG Prescribed by: ELPIDIO CARTAGENA on 12/21/18 1514 Sulfamethoxazole/Trimethoprim 1 Each Tablet, 1 EACH PO BID Prescribed by: ANJELICA ANDERSEN on 03/18/19 1415 Patient Home Medication List Home Medication List Reviewed: Yes Review of Systems Review of Systems Constitutional: No chills, No dizziness, No fever Respiratory: No Symptoms Reported Cardiovascular: No Symptoms Reported Gastrointestinal: Abdominal Pain, Diarrhea, Nausea; Denies Rectal Bleeding; Vomiting Genitourinary: Denies Burning, Denies Frequency Musculoskeletal: back pain (Right lower lumbar) Skin: no symptoms reported Psychiatric/Neurological: No Symptoms Reported Hematologic/Lymphatic: No Symptoms Reported Past Cufodxa-Rpvdjj-Oxdtlr Hx Past Med/Social Hx: Reviewed Nursing Past Med/Soc Hx Patient Social History Type Used: Cigarettes 2nd Hand Smoke Exposure: Yes Recent Hopitalizations: No Immunizations Up To Date Tetanus Booster (TDap): Less than 5yrs PED Vaccines UTD: Yes Date of Pneumonia Vaccine: Nov 04, 2013 Date of Influenza Vaccine: Jul 14, 2014 Seasonal Allergies Seasonal Allergies: No Past Medical History Surgeries: Yes (LEFT OVARY REMOVED, CYST REMOVED FROM BREAST) Bladder Surgery, Breast, Hysterectomy, 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 Respiratory: Yes Asthma, Chronic Bronchitis Cardiac: No Neurological: No Reproductive Disorders: No 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, 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 Sexually Transmitted Disease: No HIV/AIDS: No Genitourinary: Yes Bladder Infection, Kidney Stones Gastrointestinal: Yes (gastric erosions, CHRONIC ABDOMINAL PAIN) Ulcer, Gall Bladder Disease Musculoskeletal: Yes (RESTLESS LEG SYNDROME) Arthritis Endocrine: No HEENT: No Cancer: No Psychosocial: Yes Anxiety, Depression Integumentary: No Blood Disorders: No Family Medical History Abdominal aortic aneurysm 19 FATHER Cancer of mouth GRANDMOTHER Diabetes mellitus 19 MOTHER Thyroid disease 19 MOTHER Heart Disease Physical Exam Vital Signs Vital Signs - First Documented 05/11/19 18:02 Temp 97.7 Pulse 100 Resp 18 B/P (MAP) 116/80 (92) Pulse Ox 100 O2 Delivery Room Air Capillary Refill : Height/Weight/BMI Height: 5'2.00" Weight: 129lbs. 0oz. 58.857204lk; 30.91 BMI Method:Actual General Appearance: no apparent distress, other (Very animated) HEENT: PERRL/EOMI Neck: non-tender, full range of motion Respiratory: chest non-tender, lungs clear, normal breath sounds, no respiratory distress Cardiovascular: normal peripheral pulses, regular rate, rhythm Gastrointestinal: soft; No distended, No guarding, No rebound; tenderness (Very mild right upper quadrant) Extremities: normal range of motion, non-tender, normal inspection Back: no vertebral tenderness, other (Very mild right mid and lower lumbar) Neurologic/Psychiatric: alert, oriented x 3 Skin: normal color, warm/dry Progress/Results/Core Measures Results/Orders Lab Results Laboratory Tests Test 05/11/19 18:30 05/11/19 18:51 Range/Units White Blood Count 10.0 4.3-11.0 10^3/uL Red Blood Count 4.25 L 4.35-5.85 10^6/uL Hemoglobin 13.0 11.5-16.0 G/DL Hematocrit 39 35-52 % Mean Corpuscular Volume 91 80-99 FL Mean Corpuscular Hemoglobin 31 25-34 PG Mean Corpuscular Hemoglobin Concent 34 32-36 G/DL Red Cell Distribution Width 12.4 10.0-14.5 % Platelet Count 414 H 130-400 10^3/uL Mean Platelet Volume 9.2 7.4-10.4 FL Neutrophils (%) (Auto) 54 42-75 % Lymphocytes (%) (Auto) 33 12-44 % Monocytes (%) (Auto) 9 0-12 % Eosinophils (%) (Auto) 4 0-10 % Basophils (%) (Auto) 0 0-10 % Neutrophils # (Auto) 5.4 1.8-7.8 X 10^3 Lymphocytes # (Auto) 3.4 1.0-4.0 X 10^3 Monocytes # (Auto) 0.9 0.0-1.0 X 10^3 Eosinophils # (Auto) 0.4 H 0.0-0.3 10^3/uL Basophils # (Auto) 0.0 0.0-0.1 10^3/uL Sodium Level 140 135-145 MMOL/L Potassium Level 3.8 3.6-5.0 MMOL/L Chloride Level 101 98-107 MMOL/L Carbon Dioxide Level 26 21-32 MMOL/L Anion Gap 13 5-14 MMOL/L Blood Urea Nitrogen 11 7-18 MG/DL Creatinine 0.74 0.60-1.30 MG/DL Estimat Glomerular Filtration Rate > 60 BUN/Creatinine Ratio 15 Glucose Level 102 70-105 MG/DL Calcium Level 9.6 8.5-10.1 MG/DL Corrected Calcium 9.2 8.5-10.1 MG/DL Total Bilirubin 0.3 0.1-1.0 MG/DL Aspartate Amino Transf (AST/SGOT) 21 5-34 U/L Alanine Aminotransferase (ALT/SGPT) 17 0-55 U/L Alkaline Phosphatase 86 40-136 U/L Total Protein 7.3 6.4-8.2 GM/DL Albumin 4.5 3.2-4.5 GM/DL Lipase 42 8-78 U/L Urine Color YELLOW Urine Clarity SL CLOUDY Urine pH 6.0 5-9 Urine Specific [place] 1.015 L 1.016-1.022 Urine Protein NEGATIVE NEGATIVE Urine Glucose (UA) NEGATIVE NEGATIVE Urine Ketones NEGATIVE NEGATIVE Urine Nitrite NEGATIVE NEGATIVE Urine Bilirubin NEGATIVE NEGATIVE Urine Urobilinogen 0.2 NORMAL MG/DL Urine Leukocyte Esterase 2+ H NEGATIVE Urine RBC (Auto) TRACE H NEGATIVE Urine RBC 2-5 H /HPF Urine WBC >100 H /HPF Urine Squamous Epithelial Cells 10-25 H /HPF Urine Crystals NONE /LPF Urine Bacteria FEW H /HPF Urine Casts NONE /LPF Urine Mucus NEGATIVE /LPF Urine Culture Indicated YES My Orders Orders - JESS SELBY DO Comprehensive Metabolic Panel (05/11/19 18:06) Lipase (05/11/19 18:06) Ua Culture If Indicated (05/11/19 18:06) Ed Iv/Invasive Line Start (05/11/19 18:06) Acute Abd Series (05/11/19 18:06) Cbc With Automated Diff (05/11/19 18:06) Metoclopramide Injection (Reglan Injecti (05/11/19 18:06) Ns Iv 1000 Ml (Sodium Chloride 0.9%) (05/11/19 18:06) Famotidine Injection (Pepcid Injection) (05/11/19 18:06) Morphine Injection (Morphine Injection (05/11/19 18:06) Urine Culture (05/11/19 18:51) Vital Signs/I&O 05/11/19 18:02 Temp 97.7 Pulse 100 Resp 18 B/P (MAP) 116/80 (92) Pulse Ox 100 O2 Delivery Room Air Progress Progress Note : Time: 19:15 Progress Note Patient told nurse that she was leaving because of issues with her boyfriend not taking care of her granddaughter. She left prior to having all the results back. Patient has no acute findings on results that were reviewed as she was leaving. Return if symptoms worsen. Departure Impression Primary Impression: Gastroenteritis Disposition: 07 AGAINST MEDICAL ADVICE Condition: Stable Departure-Patient Inst. Referrals: NO,LOCAL PHYSICIAN (PCP/Family) Primary Care Physician Patient Instructions: No Instuctions Given JESS SELBY DO May 11, 2019 18:16
[2019-05-11 18:40] LABS: HEMATOCRIT 39 % (35-52); MEAN CORPUSCULAR HEMOGLOBIN 31 PG (25-34); MEAN CORPUSCULAR HGB CONC 34 G/DL (32-36); MEAN CORPUSCULAR VOLUME 91 FL (80-99); MEAN PLATELET VOLUME 9.2 FL (7.4-10.4); PLATELET COUNT 414 10^3/uL (130-400); RED CELL DISTRIBUTION WIDTH 12.4 % (10.0-14.5)
[2019-05-11 18:41] LABS: BASOPHILS % (AUTO) 0 % (0-10); EOSINOPHILS # (AUTO) 0.4 10^3/uL (0.0-0.3); EOSINOPHILS % (AUTO) 4 % (0-10); LYMPHOCYTES # (AUTO) 3.4 X 10^3 (1.0-4.0); LYMPHOCYTES % (AUTO) 33 % (12-44); MONOCYTES # (AUTO) 0.9 X 10^3 (0.0-1.0); MONOCYTES % (AUTO) 9 % (0-12); NEUTROPHILS # (AUTO) 5.4 X 10^3 (1.8-7.8); NEUTROPHILS % (AUTO) 54 % (42-75)
--- NOTE | 2019-05-11 18:50 | Diagnostic Imaging Report ---
INDICATION: Epigastric pain and diarrhea with nausea and vomiting. TIME OF EXAM: 06:17 p.m. FINDINGS: The heart size is normal. The lungs are clear. No free air is identified. Bowel gas pattern is nonspecific. There are some scattered air-fluid levels in the right abdomen, likely within colon. Small bowel does not appear to be appreciably dilated. No wall thickening or pneumatosis is seen. No pathologic calcifications are identified. IMPRESSION: Nonspecific bowel gas pattern. Progress films could be obtained. Dictated by: Dictated on workstation # [id number]
[2019-05-11 19:04] LABS: ALANINE AMINOTRANSFERASE 17 U/L (0-55); ALBUMIN 4.5 GM/DL (3.2-4.5); ALKALINE PHOSPHATASE 86 U/L (40-136); BILIRUBIN,TOTAL 0.3 MG/DL (0.1-1.0); BUN/CREATININE RATIO 15; CALCIUM 9.6 MG/DL (8.5-10.1); CARBON DIOXIDE 26 MMOL/L (21-32); CHLORIDE 101 MMOL/L (98-107); CREATININE SERUM 0.74 MG/DL (0.60-1.30); GFR ESTIMATED > 60; GLUCOSE 102 MG/DL (70-105); LIPASE 42 U/L (8-78); POTASSIUM 3.8 MMOL/L (3.6-5.0); SODIUM 140 MMOL/L (135-145); TOTAL PROTEIN 7.3 GM/DL (6.4-8.2)
[2019-05-11 19:05] LABS: BILIRUBIN,URINE NEGATIVE (NEGATIVE); CLARITY,URINE SL CLOUDY; COLOR,URINE YELLOW; GLUCOSE, URINE (UA) NEGATIVE (NEGATIVE); KETONES,URINE NEGATIVE (NEGATIVE); LEUKOCYTE ESTERASE ,URINE 2+ (NEGATIVE); NITRITE,URINE NEGATIVE (NEGATIVE); PROTEIN,URINE NEGATIVE (NEGATIVE); UROBILINOGEN,URINE 0.2 MG/DL (NORMAL)
[2019-05-11 19:06] LABS: BACTERIA,URINE FEW /HPF; WBC,URINE >100 /HPF
--- NOTE | 2019-05-11 19:10 | NUR ---
pt. reported that she needed to leave because her boyfriend would not watch her grandchild while she is here and was yelling at her to leave. this rn reported to the doctor about this but the doctor stated he was not ready to discharge the patient because he did not have results back so the patient decided to go AMA. pt. signed the AMA papers and left.
[2019-05-11 19:19] VITALS: BP 116/80
== END 2019-05-11 19:10 | disposition left against medical advice (07) ==
LOC: EDUNIT# 17:58 → ER FS 18:00
DX: K52.9 Noninfective gastroenteritis and colitis, unspecified (principal); J44.9 Chronic obstructive pulmonary disease, unspecified; F41.9 Anxiety disorder, unspecified; F32.9 Major depressive disorder, single episode, unspecified; Z80.0 Family history of malignant neoplasm of digestive organs; Z87.442 Personal history of urinary calculi; Z98.51 Tubal ligation status; Z90.710 Acquired absence of both cervix and uterus; Z77.22 Contact with and (suspected) exposure to environmental tobacco smoke (acute) (chronic); Z88.8 Allergy status to other drugs, medicaments and biological substances; Z88.5 Allergy status to narcotic agent; Z88.1 Allergy status to other antibiotic agents
CPT/HCPCS: 36415; 74022; 80053; 81000; 83690; 85025; 87088

== ENCOUNTER 2019-06-26 21:25 | Emergency (ER) | payer MEDICAID ==
[~2019-06-26] VITALS: Ht 157.5 cm; Wt 63.5 kg
--- NOTE | 2019-06-26 21:32 | NUR ---
pt here by self alert gcs 15. pt says boyfriend out in the car. dr in seing pt same time. pt relates 2 hrs ago pt took motrin 800 mg and showed a picture if what was diclofenac she took at same time as motrin. pt then c/o being anxious and " cant stop shaking". pt ppears restless and anxious in er and has shaking tremors of all ext. pt has h/o anxiety. pt denies illegal drugs. no acute sighns of dyspnea noted. pt asked for some alcohol to put on scratches of legs pt says " i cant stop scratching". i told pt be better for otc antibiotic ointment for them when she got home. pt wanted door to stay open saying " panick attacks".
--- NOTE | 2019-06-26 21:41 | ED General ---
General Stated Complaint: ANXIETY Source of Information: Patient Exam Limitations: No Limitations History of Present Illness Date Seen by Provider: Jun 26, 2019 Time Seen by Provider: 21:39 Initial Comments To ER with reports of sudden onset itching and inability to sit still beginning a few hours ago after she took an ibuprofen and diclofenac. She denies methamphetamine use. Timing/Duration: 1-3 Hours Severity: Moderate Associated Systoms: Denies Symptoms Allergies and Home Medications Allergies Coded Allergies: lorazepam (Unverified Allergy, Mild, "JITTERY", 05/20/09) dicyclomine (Unverified Allergy, Unknown, 07/07/14) ketorolac tromethamine (Unverified Allergy, Unknown, 06/04/14) prochlorperazine (Verified Allergy, Unknown, "JITTERY", 06/17/08) promethazine (Verified Allergy, Unknown, CONFUSED, AGITATED, 06/17/08) tramadol HCl (Verified Adverse Reaction, Mild, Anxiety, 04/26/13) Pt states she requires Benadryl to calm her down if she takes Ultram or Toradol. Does not have a true allergy to Ultram. Home Medications Albuterol Sulfate 1 Puff Puff, 2 PUFF IH Q4H PRN for SHORTNESS OF BREATH 1 PUFF = 90 MCG Prescribed by: ELPIDIO CARTAGENA on 12/21/18 1514 Sulfamethoxazole/Trimethoprim 1 Each Tablet, 1 EACH PO BID Prescribed by: ANJELICA ANDERSEN on 03/18/19 1415 Patient Home Medication List Home Medication List Reviewed: Yes Review of Systems Review of Systems Constitutional: see HPI EENTM: see HPI Respiratory: no symptoms reported Cardiovascular: no symptoms reported Genitourinary: no symptoms reported Musculoskeletal: no symptoms reported Skin: no symptoms reported Psychiatric/Neurological: See HPI, Anxiety Past Smyvxhg-Yzukcp-Ouxbzf Hx Patient Social History Type Used: Cigarettes 2nd Hand Smoke Exposure: No Recent Foreign Travel: No Contact w/Someone Who Travel: No Recent Hopitalizations: No Immunizations Up To Date Tetanus Booster (TDap): Less than 5yrs PED Vaccines UTD: Yes Date of Pneumonia Vaccine: Nov 04, 2013 Date of Influenza Vaccine: Jul 14, 2014 Seasonal Allergies Seasonal Allergies: No Past Medical History Surgeries: Yes (LEFT OVARY REMOVED, CYST REMOVED FROM BREAST) Bladder Surgery, Breast, Hysterectomy, 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 Respiratory: Yes Asthma, Chronic Bronchitis Cardiac: No Neurological: No Reproductive Disorders: No 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, 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 Sexually Transmitted Disease: No HIV/AIDS: No Genitourinary: Yes Bladder Infection, Kidney Stones Gastrointestinal: Yes (gastric erosions, CHRONIC ABDOMINAL PAIN) Ulcer, Gall Bladder Disease Musculoskeletal: Yes (RESTLESS LEG SYNDROME) Arthritis Endocrine: No HEENT: No Cancer: No Psychosocial: Yes Anxiety, Depression Integumentary: No Blood Disorders: No Family Medical History Abdominal aortic aneurysm 19 FATHER Cancer of mouth GRANDMOTHER Diabetes mellitus 19 MOTHER Thyroid disease 19 MOTHER Heart Disease Physical Exam Vital Signs Vital Signs - First Documented 06/26/19 21:32 Temp 98.2 Pulse 96 Resp 20 B/P (MAP) 150/93 (112) Pulse Ox 100 O2 Delivery Room Air Capillary Refill : Height, Weight, BMI Height: 5'2.00" Weight: 129lbs. 0oz. 58.868198iw; 30.91 BMI Method:Stated General Appearance: No Apparent Distress, WD/WN, Other (anxious appearing, scratching herself.) Eyes: Bilateral Eye Normal Inspection, Bilateral Eye PERRL, Bilateral Eye EOMI HEENT: PERRL/EOMI, TMs Normal Neck: Full Range of Motion, Normal Inspection Respiratory: Lungs Clear, Normal Breath Sounds, No Accessory Muscle Use, No Respiratory Distress Gastrointestinal: Normal Bowel Sounds, Non Tender, Soft Extremity: Normal Capillary Refill, Normal Inspection Neurologic/Psychiatric: Alert, Oriented x3 Skin: Normal Color, Warm/Dry, Other Progress/Results/Core Measures Suspected Sepsis SIRS Temperature: Pulse: Respiratory Rate: Blood Pressure / Mean: Results/Orders My Orders Orders - ANJELICA ANDERSEN APRN Hydroxyzine Cap/Tab (Vistaril) (06/26/19 21:45) Vital Signs/I&O 06/26/19 21:32 Temp 98.2 Pulse 96 Resp 20 B/P (MAP) 150/93 (112) Pulse Ox 100 O2 Delivery Room Air Capillary Refill : Departure Impression Primary Impression: Anxiety Disposition: 01 HOME, SELF-CARE Condition: Improved Departure-Patient Inst. Decision time for Depature: 21:52 Referrals: NO,LOCAL PHYSICIAN (PCP/Family) Primary Care Physician Patient Instructions: Anxiety, Adult (DC) ANJELICA ANDERSEN APRN Jun 26, 2019 21:40
[2019-06-26] MEDS ORDERED: hydrOXYzine (VISTARIL/ATARAX) 25 MG capsule/tablet PO ONE (21:45)
[2019-06-26 22:04] VITALS: BP 150/93
--- NOTE | 2019-06-26 22:04 | NUR ---
d/c instructions to pt. told to read all papers. script paper only after pt requested same med for home and filled out a script for it. . pt left ambulatory by self. pt knows f/u no handtyped by dr peter on the chart. . pt had no iv.
== END 2019-06-26 22:04 | disposition home or self-care (01) ==
LOC: ER 21:25 → EDUNIT# 21:25 → ER 22:04
DX: F41.9 Anxiety disorder, unspecified (principal); J44.9 Chronic obstructive pulmonary disease, unspecified; F32.9 Major depressive disorder, single episode, unspecified; Z88.5 Allergy status to narcotic agent; Z88.6 Allergy status to analgesic agent; Z88.8 Allergy status to other drugs, medicaments and biological substances; Z88.1 Allergy status to other antibiotic agents; Z90.710 Acquired absence of both cervix and uterus; Z98.51 Tubal ligation status; Z82.49 Family history of ischemic heart disease and other diseases of the circulatory system
CPT/HCPCS: 99283

== ENCOUNTER 2019-07-12 20:15 | Emergency (ER) | payer MEDICAID ==
[~2019-07-12] VITALS: Ht 157.5 cm; Wt 58.1 kg
--- NOTE | 2019-07-12 20:36 | ED Upper Extremity ---
General Chief Complaint: Upper Extremity Stated Complaint: RIGHT ARM PAIN Nursing Triage Note: RIGHT ARM, ELBOW PAIN X2 DAYS S/P FALL Nursing Sepsis Screen: No Definite Risk Source: patient Exam Limitations: no limitations History of Present Illness Date Seen by Provider: Jul 12, 2019 Time Seen by Provider: 20:21 Initial Comments Here with report of right elbow pain after falling 2 days ago. She had not sought care until today when it became quite severe. States pain is at the right elbow and radiates up and down the arm. Also has a bruise to the right hand. She states that she slipped in the shower. Denies other injury or concerns. She did take ibuprofen about 4 hours ago and that has not helped the pain. Onset: other (2 days ago) Severity: moderate Pain/Injury Location: right elbow, right hand Method of Injury: fell Modifying Factors: Worse With Movement; Improves With Other (no relieving factors) Allergies and Home Medications Allergies Coded Allergies: lorazepam (Unverified Allergy, Mild, "JITTERY", 05/20/09) dicyclomine (Unverified Allergy, Unknown, 07/07/14) ketorolac tromethamine (Unverified Allergy, Unknown, 06/04/14) prochlorperazine (Verified Allergy, Unknown, "JITTERY", 06/17/08) promethazine (Verified Allergy, Unknown, CONFUSED, AGITATED, 06/17/08) tramadol HCl (Verified Adverse Reaction, Mild, Anxiety, 04/26/13) Pt states she requires Benadryl to calm her down if she takes Ultram or Toradol. Does not have a true allergy to Ultram. Home Medications No Active Prescriptions or Reported Meds Patient Home Medication List Home Medication List Reviewed: Yes Review of Systems Constitutional: see HPI; No chills, No fever Respiratory: no symptoms reported Cardiovascular: no symptoms reported Musculoskeletal: see HPI, joint pain, muscle pain Skin: change in color; No lesions Past Dezincs-Jbanrp-Hkcwyq Hx Past Med/Social Hx: Reviewed Nursing Past Med/Soc Hx Patient Social History Alcohol Use: Denies Use Recreational Drug Use: No Smoking Status: Current Everyday Smoker Type Used: Cigarettes 2nd Hand Smoke Exposure: No Recent Foreign Travel: No Contact w/Someone Who Travel: No Recent Infectious Disease Expo: No Recent Hopitalizations: No Physical Abuse: No Sexual Abuse: No Mistreated: No Fear: No Immunizations Up To Date Tetanus Booster (TDap): Less than 5yrs PED Vaccines UTD: Yes Date of Pneumonia Vaccine: Nov 04, 2013 Date of Influenza Vaccine: Jul 14, 2014 Seasonal Allergies Seasonal Allergies: No Past Medical History Surgeries: Yes (LEFT OVARY REMOVED, CYST REMOVED FROM BREAST) Bladder Surgery, Breast, Hysterectomy, 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 Respiratory: Yes Asthma, Chronic Bronchitis Cardiac: No Neurological: No : No Reproductive Disorders: No 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: Hysterectomy, 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 Sexually Transmitted Disease: No HIV/AIDS: No Genitourinary: Yes Bladder Infection, Kidney Stones Gastrointestinal: Yes (gastric erosions, CHRONIC ABDOMINAL PAIN) Ulcer, Gall Bladder Disease Musculoskeletal: Yes (RESTLESS LEG SYNDROME) Arthritis Endocrine: No HEENT: No Cancer: No Psychosocial: Yes Anxiety, Depression Integumentary: No Blood Disorders: No Family Medical History Reviewed Nursing Family Hx Abdominal aortic aneurysm 19 FATHER Cancer of mouth GRANDMOTHER Diabetes mellitus 19 MOTHER Thyroid disease 19 MOTHER Heart Disease Physical Exam Vital Signs Vital Signs - First Documented 07/12/19 20:19 Temp 97.8 Pulse 112 Resp 22 B/P (MAP) 115/95 (102) Pulse Ox 97 O2 Delivery Room Air Capillary Refill : Less Than 3 Seconds Height, Weight, BMI Height: 5'2.00" Weight: 128lbs. 0oz. 58.616734tt; 30.91 BMI Method:Stated General Appearance: WD/WN, no apparent distress Cardiovascular: regular rate, rhythm, no murmur Respiratory: lungs clear, normal breath sounds Elbow/Forearm: normal ROM, Right, bone tenderness, soft tissue tenderness (around the right elbow but no obvious deformity, swelling or asymmetry. No abrasions noted.) Hand: Right, ecchymosis (right fifth metacarpal area on the dorsum of the hand.) Neurologic/Psychiatric: alert, oriented x 3 Skin: warm/dry, ecchymosis (as described above) Progress/Results/Core Measures Results/Orders My Orders Orders - FRANKI SAMUELS MD Elbow, Right, 3 Views (07/12/19 20:29) Hand, Right, 3 Views (07/12/19 20:29) Lortab 7.5 Mg Po (07/12/19 21:02) Vital Signs/I&O 07/12/19 20:19 Temp 97.8 Pulse 112 Resp 22 B/P (MAP) 115/95 (102) Pulse Ox 97 O2 Delivery Room Air Blood Pressure Mean: 102 Progress Progress Note : Progress Note Seen and evaluated. X-ray right elbow and right hand. Monitor patient. Ice pack given. 2103: Hydrocodone 7.5 one tab by mouth given. I cannot prescribed this but will give her one dose now to help calm the pain. She'll continue outpatient ibuprofen and/or Tylenol. There is no acute fracture and this was discussed with the patient. All her muscle compartments are soft and she has good distal pulses and cap refill to the hand. Discharged home with return precautions. Patient verbalize understanding instructions and agreement with plan. Diagnostic Imaging Diagonstic Imaging: Xray Plain Films/CT/US/NM/MRI: elbow Comments [facility], [place] NAME: GUERA VALDOVINOS [employer] REC#: [id number] PT STATUS: REG ER : 1970 PHYSICIAN: FRANKI SAMUELS MD ADMIT DATE: 07/12/19/ER Draft Date of Exam:07/12/19 ELBOW, RIGHT, 3 VIEWS INDICATION: Two days status post fall. Right elbow pain. EXAMINATION: Three views of the right elbow were obtained. FINDINGS: No fracture, dislocation or other abnormality. IMPRESSION: Normal right elbow. Dictated on workstation # [id number] Dict: 07/12/192041 Trans: 07/12/192044 LOCATED WITHIN [facility] [id number] Interpreted by: COSTA SOL MD Electronically signed by: Reviewed: Reviewed by Me Diagonstic Imaging: Xray Plain Films/CT/US/NM/MRI: hand Comments NAME: GUERA VALDOVINOS [employer] REC#: [id number] PT STATUS: REG ER : 1970 PHYSICIAN: FRANKI SAMUELS MD ADMIT DATE: 07/12/19/ER Signed Date of Exam: 07/12/19 HAND, RIGHT, 3 VIEWS INDICATION: Two-day status post fall. Right hand pain 3 views of the right hand show no fracture, dislocation or other acute bony abnormality. IMPRESSION: No acute abnormality is seen with no change from 03/11/15. Dictated by: Dictated on workstation # [id number] Dict: 07/12/192041 Trans: 07/12/192058 Interpreted by: COSTA SOL MD Electronically signed by: COSTA SOL MD 07/12/192058 Reviewed: Reviewed by Me Departure Impression Primary Impression: Contusion of right elbow Qualified Codes: S50.01XA - Contusion of right elbow, initial encounter Additional Impression: Contusion of right hand Qualified Codes: S60.221A - Contusion of right hand, initial encounter Disposition: HOME, SELF-CARE Condition: Stable Departure-Patient Inst. Decision time for Depature: 21:05 Referrals: NO,LOCAL PHYSICIAN (PCP) Primary Care Physician BHARTI MAURICIO MD, ROBERT F DO ZAFUTA, MICHAEL P MD Patient Instructions: Contusion (DC) Add. Discharge Instructions: All discharge instructions reviewed with patient and/or family. Voiced understanding. You may take ibuprofen 600 mg every 8 hours as needed for pain. You may take Tylenol/acetaminophen 1000 mg every 8 hours as needed for pain. Use ice packs to area concern 20 minutes per hour as needed. Use sling for comfort for the next few days and then as needed. Follow-up with your Dr. for recheck in a few days and for further evaluation. You may also follow up with an orthopedist listed or of your choosing for further evaluation as well. Scripts No Active Prescriptions or Reported Meds FRANKI SAMUELS MD Jul 12, 2019 20:36
--- NOTE | 2019-07-12 20:45 | Diagnostic Imaging Report ---
INDICATION: Two days status post fall. Right elbow pain. EXAMINATION: Three views of the right elbow were obtained. FINDINGS: No fracture, dislocation or other abnormality. IMPRESSION: Normal right elbow. Dictated by: Dictated on workstation # [id number]
--- NOTE | 2019-07-12 20:47 | Diagnostic Imaging Report ---
INDICATION: Two-day status post fall. Right hand pain 3 views of the right hand show no fracture, dislocation or other acute bony abnormality. IMPRESSION: No acute abnormality is seen with no change from 03/11/15. Dictated by: Dictated on workstation # [id number]
[2019-07-12] MEDS ORDERED: HYDROcodone/APAP 7.5 MG/325 MG (LORTAB, LORCET PLUS) TABLET PO STA (21:02)
[2019-07-12 21:10] VITALS: BP 115/95
== END 2019-07-12 21:10 | disposition home or self-care (01) ==
LOC: EDUNIT# 20:15 → ER 20:16
DX: S50.01XA Contusion of right elbow, initial encounter (principal); S60.221A Contusion of right hand, initial encounter; J44.9 Chronic obstructive pulmonary disease, unspecified; F41.9 Anxiety disorder, unspecified; F32.9 Major depressive disorder, single episode, unspecified; F17.210 Nicotine dependence, cigarettes, uncomplicated; Z87.442 Personal history of urinary calculi; Z98.51 Tubal ligation status; Z90.710 Acquired absence of both cervix and uterus; Z88.8 Allergy status to other drugs, medicaments and biological substances; Z88.5 Allergy status to narcotic agent; Z88.1 Allergy status to other antibiotic agents; Z80.0 Family history of malignant neoplasm of digestive organs; W01.0XXA Fall on same level from slipping, tripping and stumbling without subsequent striking against object, initial encounter; Y92.002 Bathroom of unspecified non-institutional (private) residence as the place of occurrence of the external cause
CPT/HCPCS: 73080; 73130

== ENCOUNTER 2019-09-25 13:19 | Emergency (ER) | payer MEDICAID ==
[~2019-09-25] VITALS: Ht 157 cm; Wt 63.5 kg
--- NOTE | 2019-09-25 13:26 | ED General ---
General Stated Complaint: SHAKING Source of Information: Patient Exam Limitations: No Limitations History of Present Illness Date Seen by Provider: Sep 25, 2019 Time Seen by Provider: 13:24 Initial Comments to ER per EMS with reports of tremors tachypnea anxiety. She was seen at [facility] last night given intramuscular Zofran, awakened this morning and took a Benadryl and a naproxen and has been shaking since then. Timing/Duration: 1-3 Hours Severity: Moderate Associated Systoms: Denies Symptoms Allergies and Home Medications Allergies Coded Allergies: lorazepam (Unverified Allergy, Mild, "JITTERY", 05/20/09) dicyclomine (Unverified Allergy, Unknown, 07/07/14) ketorolac tromethamine (Unverified Allergy, Unknown, 06/04/14) prochlorperazine (Verified Allergy, Unknown, "JITTERY", 06/17/08) promethazine (Verified Allergy, Unknown, CONFUSED, AGITATED, 06/17/08) tramadol HCl (Verified Adverse Reaction, Mild, Anxiety, 04/26/13) Pt states she requires Benadryl to calm her down if she takes Ultram or Toradol. Does not have a true allergy to Ultram. Patient Home Medication List Home Medication List Reviewed: Yes Review of Systems Review of Systems Constitutional: see HPI EENTM: see HPI Respiratory: no symptoms reported Cardiovascular: no symptoms reported Genitourinary: no symptoms reported Musculoskeletal: no symptoms reported Skin: no symptoms reported Psychiatric/Neurological: No Symptoms Reported Hematologic/Lymphatic: No Symptoms Reported Past Greojcp-Pxltbv-Jfiaaf Hx Patient Social History Type Used: Cigarettes 2nd Hand Smoke Exposure: No Recent Hopitalizations: No Immunizations Up To Date Tetanus Booster (TDap): Less than 5yrs PED Vaccines UTD: Yes Date of Pneumonia Vaccine: Nov 04, 2013 Date of Influenza Vaccine: Jul 14, 2014 Seasonal Allergies Seasonal Allergies: No Past Medical History Surgeries: Yes (LEFT OVARY REMOVED, CYST REMOVED FROM BREAST) Bladder Surgery, Breast, Hysterectomy, 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 Respiratory: Yes Asthma, Chronic Bronchitis Cardiac: No Neurological: No Reproductive Disorders: No 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, 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 Sexually Transmitted Disease: No HIV/AIDS: No Genitourinary: Yes Bladder Infection, Kidney Stones Gastrointestinal: Yes (gastric erosions, CHRONIC ABDOMINAL PAIN) Ulcer, Gall Bladder Disease Musculoskeletal: Yes (RESTLESS LEG SYNDROME) Arthritis Endocrine: No HEENT: No Cancer: No Psychosocial: Yes Anxiety, Depression Integumentary: No Blood Disorders: No Family Medical History Abdominal aortic aneurysm 19 FATHER Cancer of mouth GRANDMOTHER Diabetes mellitus 19 MOTHER Thyroid disease 19 MOTHER Heart Disease Physical Exam Vital Signs Vital Signs - First Documented 09/25/19 13:26 Temp 36.8 Pulse 147 Resp 22 B/P (MAP) 152/112 (125) Pulse Ox 11 Capillary Refill : Height, Weight, BMI Height: 5'2.00" Weight: 128lbs. 0oz. 58.717403he; 30.91 BMI Method:Stated General Appearance: No Apparent Distress, WD/WN, Anxious, Other (shaking) Eyes: Bilateral Eye Normal Inspection, Bilateral Eye PERRL, Bilateral Eye EOMI HEENT: PERRL/EOMI, TMs Normal Respiratory: No Accessory Muscle Use, No Respiratory Distress Gastrointestinal: Normal Bowel Sounds, Non Tender, Soft Extremity: Normal Capillary Refill, Normal Inspection Neurologic/Psychiatric: Alert, Oriented x3 Skin: Normal Color, Warm/Dry Progress/Results/Core Measures Suspected Sepsis SIRS Temperature: Pulse: Respiratory Rate: Blood Pressure / Mean: Results/Orders My Orders Orders - ANJELICA ANDERSEN APRN Alprazolam Tablet (Xanax Tablet) (09/25/19 13:30) Vital Signs/I&O 09/25/19 13:26 Temp 36.8 Pulse 147 Resp 22 B/P (MAP) 152/112 (125) Pulse Ox 11 Capillary Refill : Departure Impression Primary Impression: Panic Disposition: 01 HOME, SELF-CARE Condition: Stable Departure-Patient Inst. Decision time for Depature: 13:58 Referrals: NO,LOCAL PHYSICIAN (PCP/Family) Primary Care Physician Patient Instructions: Panic Disorder Add. Discharge Instructions: 1. Return to ER for any concerns 2. Follow-up with your doctor next week 3. ANJELICA ANDERSEN APRN Sep 25, 2019 13:26 POS
[2019-09-25] MEDS ORDERED: ALPRAZolam 1 MG (XANAX) TAB PO ONE (13:30)
[2019-09-25 14:18] VITALS: BP 146/97
== END 2019-09-25 14:18 | disposition home or self-care (01) ==
LOC: EDUNIT# 13:19 → ER 13:22
DX: F41.0 Panic disorder [episodic paroxysmal anxiety] (principal); J45.909 Unspecified asthma, uncomplicated; F41.9 Anxiety disorder, unspecified; F32.9 Major depressive disorder, single episode, unspecified; Z88.5 Allergy status to narcotic agent; Z87.442 Personal history of urinary calculi; Z88.6 Allergy status to analgesic agent; Z88.8 Allergy status to other drugs, medicaments and biological substances; Z90.710 Acquired absence of both cervix and uterus; Z98.51 Tubal ligation status; Z80.8 Family history of malignant neoplasm of other organs or systems; Z82.49 Family history of ischemic heart disease and other diseases of the circulatory system
CPT/HCPCS: 99283

== ENCOUNTER 2019-09-25 19:45 | Emergency (ER) | payer MEDICAID ==
[~2019-09-25] VITALS: Ht 157 cm; Wt 63.6 kg
--- NOTE | 2019-09-25 20:58 | ED Psychosocial ---
General Chief Complaint: Psych/Social Disorder Stated Complaint: "PANIC ATTACK" Source: patient Exam Limitations: no limitations History of Present Illness Date Seen by Provider: Sep 25, 2019 Time Seen by Provider: 20:56 Initial Comments To ER with reports of a panic attack. She was seen here earlier today for the same. She was given Xanax and felt much better. This evening she received news allegedly that her daughter was in a motor vehicle accident in [place], she doesn't know her condition. This caused her to become anxious, she filled the hydroxyzine prescription that I gave her earlier today, she took one of them and feels overall better but still uncomfortably anxious. Timing/Duration: constant Severity: moderate Associated Symptoms: anxiety Allergies and Home Medications Allergies Coded Allergies: lorazepam (Unverified Allergy, Mild, "JITTERY", 05/20/09) dicyclomine (Unverified Allergy, Unknown, 07/07/14) ketorolac tromethamine (Unverified Allergy, Unknown, 06/04/14) prochlorperazine (Verified Allergy, Unknown, "JITTERY", 06/17/08) promethazine (Verified Allergy, Unknown, CONFUSED, AGITATED, 06/17/08) tramadol HCl (Verified Adverse Reaction, Mild, Anxiety, 04/26/13) Pt states she requires Benadryl to calm her down if she takes Ultram or Toradol. Does not have a true allergy to Ultram. Patient Home Medication List Home Medication List Reviewed: Yes Review of Systems Constitutional: see HPI EENTM: see HPI Respiratory: no symptoms reported Cardiovascular: no symptoms reported Genitourinary: no symptoms reported Musculoskeletal: no symptoms reported Skin: no symptoms reported Psychiatric/Neurological: See HPI, Anxiety Past Flzdecc-Enhpvw-Tnkpvj Hx Patient Social History Type Used: Cigarettes 2nd Hand Smoke Exposure: No Recent Foreign Travel: No Contact w/Someone Who Travel: No Recent Hopitalizations: No Immunizations Up To Date Tetanus Booster (TDap): Less than 5yrs PED Vaccines UTD: Yes Date of Pneumonia Vaccine: Nov 04, 2013 Date of Influenza Vaccine: Jul 14, 2014 Seasonal Allergies Seasonal Allergies: No Past Medical History Surgeries: Yes (LEFT OVARY REMOVED, CYST REMOVED FROM BREAST) Bladder Surgery, Breast, Hysterectomy, 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 Respiratory: Yes Asthma, Chronic Bronchitis Cardiac: No Neurological: No Reproductive Disorders: No 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 0oz. 58.062567np; 25.00 BMI Method:Stated General Appearance: WD/WN, no apparent distress Respiratory: no respiratory distress, no accessory muscle use Gastrointestinal: normal bowel sounds, non tender, soft Neurologic/Psychiatric: alert, normal mood/affect, oriented x 3 Appearance/Memory: appropriate appearance, appropriate insight, neat Behavior/Eye Contact: cooperative Thoughts/Hallucinations: normal thought pattern, no apparent hallucination Skin: normal color, warm/dry Progress/Results/Core Measures Results/Orders My Orders Orders - ANJELICA ANDERSEN APRN Hydroxyzine Cap/Tab (Vistaril) (09/25/19 21:00) Departure Impression Primary Impression: Anxiety Disposition: 01 HOME, SELF-CARE Condition: Stable Departure-Patient Inst. Decision time for Depature: 21:00 Referrals: NO,LOCAL PHYSICIAN (PCP/Family) Primary Care Physician Patient Instructions: Panic Disorder (DC), ALCOHOL AND SUBSTANCE ABUSE ANJELICA ANDERSEN APRN Sep 25, 2019 20:58 POS
[2019-09-25] MEDS ORDERED: hydrOXYzine (VISTARIL/ATARAX) 25 MG capsule/tablet PO ONE (21:00)
[2019-09-25 21:09] VITALS: BP 153/122
== END 2019-09-25 21:10 | disposition home or self-care (01) ==
LOC: EDUNIT# 19:45 → ER 19:46
DX: F41.9 Anxiety disorder, unspecified (principal); J45.909 Unspecified asthma, uncomplicated; F32.9 Major depressive disorder, single episode, unspecified; Z87.442 Personal history of urinary calculi; Z88.5 Allergy status to narcotic agent; Z88.6 Allergy status to analgesic agent; Z88.8 Allergy status to other drugs, medicaments and biological substances; Z98.51 Tubal ligation status; Z90.710 Acquired absence of both cervix and uterus; Z80.8 Family history of malignant neoplasm of other organs or systems; Z82.49 Family history of ischemic heart disease and other diseases of the circulatory system
CPT/HCPCS: 99283

== ENCOUNTER 2019-12-18 20:13 | Emergency (ER) | payer MEDICAID ==
[~2019-12-18] VITALS: Ht 157 cm; Wt 63.5 kg
[2019-12-18 20:20] VITALS: BP 151/104
[2019-12-18] MEDS ORDERED: ASPIRIN 81 MG CHEW (CHILDREN'S ASA) PO ONE (20:30)
[2019-12-18] MEDS ORDERED: NITROGLYCERIN 0.4 MG SL TABS BTL 25'S SL PRN (20:30)
--- NOTE | 2019-12-18 20:35 | NUR ---
pt reports headache after ntg administration. denies improvement in left shoulder pain. requesting additional pain medications. erp notified.
[2019-12-18 20:37] LABS: BASOPHILS % (AUTO) 0 % (0-10); EOSINOPHILS # (AUTO) 0.4 10^3/uL (0.0-0.3); EOSINOPHILS % (AUTO) 4 % (0-10); HEMATOCRIT 44 % (35-52); HEMOGLOBIN 15.2 G/DL (11.5-16.0); LYMPHOCYTES # (AUTO) 4.2 X 10^3 (1.0-4.0); LYMPHOCYTES % (AUTO) 43 % (12-44); MEAN CORPUSCULAR HEMOGLOBIN 31 PG (25-34); MEAN CORPUSCULAR HGB CONC 34 G/DL (32-36); MEAN CORPUSCULAR VOLUME 89 FL (80-99); MEAN PLATELET VOLUME 9.3 FL (7.4-10.4); MONOCYTES # (AUTO) 0.8 X 10^3 (0.0-1.0); MONOCYTES % (AUTO) 8 % (0-12); NEUTROPHILS # (AUTO) 4.4 X 10^3 (1.8-7.8); NEUTROPHILS % (AUTO) 45 % (42-75); PLATELET COUNT 488 10^3/uL (130-400); RED CELL DISTRIBUTION WIDTH 12.4 % (10.0-14.5); WHITE BLOOD COUNT 9.9 10^3/uL (4.3-11.0)
[2019-12-18 20:49] LABS: INR 0.9 (0.8-1.4); PROTHROMBIN TIME PATIENT 12.2 SEC (12.2-14.7)
[2019-12-18 20:56] LABS: SALICYLATE < 5.0 MG/DL (5.0-20.0)
[2019-12-18 20:57] LABS: ACETAMINOPHEN < 10 UG/ML (10-30)
[2019-12-18 20:59] LABS: ALANINE AMINOTRANSFERASE 29 U/L (0-55); ALBUMIN 5.3 GM/DL (3.2-4.5); ALKALINE PHOSPHATASE 102 U/L (40-136); AMYLASE 80 U/L (25-125); BILIRUBIN,TOTAL 0.4 MG/DL (0.1-1.0); BUN/CREATININE RATIO 15; CALCIUM 11.3 MG/DL (8.5-10.1); CARBON DIOXIDE 23 MMOL/L (21-32); CHLORIDE 104 MMOL/L (98-107); CREATINE KINASE 176 U/L (29-168); CREATININE SERUM 0.89 MG/DL (0.60-1.30); GFR ESTIMATED > 60; GLUCOSE 77 MG/DL (70-105); LIPASE 47 U/L (8-78); MAGNESIUM 2.5 MG/DL (1.6-2.4); POTASSIUM 3.5 MMOL/L (3.6-5.0); SODIUM 140 MMOL/L (135-145)
[2019-12-18 21:06] LABS: CREATINE KINASE MB 2.8 NG/ML (<6.6)
--- NOTE | 2019-12-18 21:19 | Diagnostic Imaging Report ---
EXAMINATION: Chest radiograph, portable AP view. DATE: 12/18/2019 8:44 PM. INDICATION: 49-year-old female, chest pain and left arm pain. COMPARISON: December,. FINDINGS: Heart size and mediastinal contours are unremarkable. There is no identified pneumothorax. There is no large pleural effusion. There is no identified focal airspace consolidation. IMPRESSION: No identified acute cardiopulmonary abnormality. Dictated by: Dictated on workstation # [id number]
--- NOTE | 2019-12-19 04:26 | ED Chest Pain ---
General Chief Complaint: Chest Pain Stated Complaint: CHEST PAIN,ARM PAIN Nursing Triage Note: intermittant chest pain since 11am. worse with cough/deep breathing. Nursing Sepsis Screen: No Definite Risk Source: patient (SOMEWHAT DIFFICULT HISTORIAN), old records History of Present Illness Date Seen by Provider: Dec 18, 2019 Time Seen by Provider: 20:20 Initial Comments PT ARRIVES VIA POV FROM HOME PT C/O CHEST PAIN AND LEFT SHOULDER PAIN SINCE NOON TODAY--PAIN BEGAN WHILE LAYING DOWN "TRYING TO GO TO SLEEP" MAIN COMPLAINT ON ARRIVAL, IS LEFT SHOULDER PAIN MORE THAT CHEST PAIN STATES PAIN COMES AND GOES AND IS WORSE WHEN LAYING DOWN. PAIN IS ALSO WORSE WITH DEEP BREATHING NO INJURY TO SHOULDER HAS HAD MILD NON-PRODUCTIVE COUGH NO FEVER NO SHORTNESS OF BREATH NO SWEATS + NAUSEA, NO VOMITING NO SWELLING IN LEGS/FEET OR PAIN IN [place] STATES SHE TOOK AN IBUPROFEN AT 1300 TODAY-NO IMPROVEMENT DENIES HISTORY OF SIMILAR. PT WITH MULTIPLE VISITS HERE, VARIOUS COMPLAINTS--MOST ARE VARIOUS PAIN COMPLAINTS/INJURIES, OR ANXIETY COMPLAINTS PCP: [facility] Allergies and Home Medications Allergies Coded Allergies: lorazepam (Unverified Allergy, Mild, "JITTERY", 05/20/09) dicyclomine (Unverified Allergy, Unknown, 07/07/14) ketorolac tromethamine (Unverified Allergy, Unknown, 06/04/14) prochlorperazine (Verified Allergy, Unknown, "JITTERY", 06/17/08) promethazine (Verified Allergy, Unknown, CONFUSED, AGITATED, 06/17/08) tramadol HCl (Verified Adverse Reaction, Mild, Anxiety, 04/26/13) Pt states she requires Benadryl to calm her down if she takes Ultram or Toradol. Does not have a true allergy to Ultram. Home Medications No Active Prescriptions or Reported Meds Patient Home Medication List Home Medication List Reviewed: Yes Review of Systems Review of Systems Constitutional: no symptoms reported; No chills, No diaphoresis, No fever EENTM: No Symptoms Reported Respiratory: Cough; Denies Shortness of Air Cardiovascular: See HPI, Chest Pain; Denies Edema, Denies Lightheadedness, Denies Palpitations Gastrointestinal: See HPI; Denies Abdominal Pain; Nausea; Denies Vomiting Genitourinary: No Symptoms Reported Musculoskeletal: see HPI; No back pain; joint pain Skin: no symptoms reported Psychiatric/Neurological: Anxiety; Denies Numbness, Denies Paresthesia, Denies Tingling, Denies Weakness Past Knehckn-Rkbwso-Ljkauu Hx Past Med/Social Hx: Reviewed and Corrections made Patient Social History Alcohol Use: Denies Use Recreational Drug Use: Yes (UDS+ FOR METH/AMPHETAMINES 03/2019; OPIATE USE/ABUSE-OXYCODONE) Drug of Choice: UDS+ FOR METH/AMPHETAMINES; OPIATE USE/ABUSE-OXYCODONE Smoking Status: Current Everyday Smoker (1 PPD) Type Used: Cigarettes (1 PPD) 2nd Hand Smoke Exposure: No Recent Foreign Travel: No Contact w/Someone Who Travel: No Recent Infectious Disease Expo: No Recent Hopitalizations: No Immunizations Up To Date Tetanus Booster (TDap): Less than 5yrs PED Vaccines UTD: Yes Date of Pneumonia Vaccine: Nov 04, 2013 Date of Influenza Vaccine: Jul 14, 2014 Seasonal Allergies Seasonal Allergies: No Past Medical History Surgeries: Yes (R OOPHORECTOMY; L BREAST CYST REMOVED;ALEKSANDR/BSO;D&C;EGD/COLONOSCOPIES;BLADDER) Bladder Surgery, Breast, Hysterectomy, Oophorectomy, 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 Respiratory: Yes Asthma, Chronic Bronchitis Cardiac: No Neurological: No : No Reproductive Disorders: Yes (HYST/BSO; RIGHT OOPORECTOMY FOR CYSTS) Female Reproductive Disorders: 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, 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 Sexually Transmitted Disease: No HIV/AIDS: No Genitourinary: Yes (INCONTINENCE/CYSTOCOELE-S/P PUBO-VAGINAL SLING 2013) Bladder Infection, Kidney Stones, UTI-Chronic Gastrointestinal: Yes (GASTRIC EROSIONS, CHRONIC ABDOMINAL PAIN; QUESTIONABLE HISTORY OF HEP C) Gastroesophageal Reflux, Hemorrhoids, Hiatal Hernia, Ulcer, Gall Bladder Disease Musculoskeletal: Yes (RESTLESS LEG SYNDROME) Arthritis, Chronic Back Pain Endocrine: No HEENT: No Cancer: No Psychosocial: Yes Anxiety, Depression Integumentary: No Blood Disorders: No Family Medical History Abdominal aortic aneurysm 19 FATHER Cancer of mouth GRANDMOTHER Diabetes mellitus 19 MOTHER Thyroid disease 19 MOTHER Heart Disease CYSPSH: -EGD'S/COLONOSCOPIES--LAST ONE HERE 2013--GASTRIC EROSIONS, SMALL HIATAL HERNIA, GERD, HEMORRHOIDS -PUBO-VAGINAL SLING + CYSTOSCOPY 2013--DR. GARCIA -BTL -D&C -ALEKSANDR/BSO -RIGHT OOPHORECTOMY FOR CYST -LEFT BREAST BIOPSY/CYST REMOVAL Physical Exam Vital Signs Vital Signs - First Documented Capillary Refill : Less Than 3 Seconds Height, Weight, BMI Height: 5'2.00" Weight: 128lbs. 0oz. [id number]; 25.00 BMI Method:Stated General Appearance: Other (PT IS EXTREMELY DRAMATIC--WAILING/MOANING, "SOBBING"--NO TEARS. ALL THIS BEHAVIOR STOPS WHEN DISTRACTED. PT WAILS LOUDLY / SCREAMS WITH IV STICK. PT WITH VERY BIZARRE BEHAVIOR--APPEARS TO BE UNDER THE INFLUENCE OF SOME SUBSTANCE/S. CONSTANT MOVEMENTS OF MOUTH AND BODY, CONSTANT LIP-LICKING. HYPERVENITLATING. ) HEENT: Other (ANGULAR CHELITIS, LIPS CHAPPED WITH CONSTANT LIP LICKING. ) Respiratory: Normal Breath Sounds, No Accessory Muscle Use, No Respiratory Distress, Other (CHEST TENDER TO PALPATION-MARKEDLY EXAGGERATED PAIN RESPONSE. ) Cardiovascular: No Edema, No Murmur, Normal Peripheral Pulses, Tachycardia (110'S) Gastrointestinal: Non Tender, Soft Extremity: Normal Capillary Refill, No Pedal Edema, Other (LEFT SHOULDER TENDERNESS AND C/O PAIN WITH ANY SLIGHT MOVEMENT OF ARM BY STAFF. MARKEDLY EXAGGERATED PAIN RESPONSE) Neurologic/Psychiatric: Alert, Oriented x3, No Motor/Sensory Deficits, Other ( ABOVE) Skin: Normal Color, Warm/Dry Progress/Results/Core Measures Results/Orders Lab Results Laboratory Tests Test 12/18/19 20:25 Range/Units White Blood Count 9.9 4.3-11.0 10^3/uL Red Blood Count 4.99 4.35-5.85 10^6/uL Hemoglobin 15.2 11.5-16.0 G/DL Hematocrit 44 35-52 % Mean Corpuscular Volume 89 80-99 FL Mean Corpuscular Hemoglobin 31 25-34 PG Mean Corpuscular Hemoglobin Concent 34 32-36 G/DL Red Cell Distribution Width 12.4 10.0-14.5 % Platelet Count 488 H 130-400 10^3/uL Mean Platelet Volume 9.3 7.4-10.4 FL Neutrophils (%) (Auto) 45 42-75 % Lymphocytes (%) (Auto) 43 12-44 % Monocytes (%) (Auto) 8 0-12 % Eosinophils (%) (Auto) 4 0-10 % Basophils (%) (Auto) 0 0-10 % Neutrophils # (Auto) 4.4 1.8-7.8 X 10^3 Lymphocytes # (Auto) 4.2 H 1.0-4.0 X 10^3 Monocytes # (Auto) 0.8 0.0-1.0 X 10^3 Eosinophils # (Auto) 0.4 H 0.0-0.3 10^3/uL Basophils # (Auto) 0.0 0.0-0.1 10^3/uL Prothrombin Time 12.2 12.2-14.7 SEC INR Comment 0.9 0.8-1.4 Activated Partial Thromboplast Time 26 24-35 SEC Sodium Level 140 135-145 MMOL/L Potassium Level 3.5 L 3.6-5.0 MMOL/L Chloride Level 104 98-107 MMOL/L Carbon Dioxide Level 23 21-32 MMOL/L Anion Gap 13 5-14 MMOL/L Blood Urea Nitrogen 13 7-18 MG/DL Creatinine 0.89 0.60-1.30 MG/DL Estimat Glomerular Filtration Rate > 60 BUN/Creatinine Ratio 15 Glucose Level 77 70-105 MG/DL Calcium Level 11.3 H 8.5-10.1 MG/DL Corrected Calcium 8.5-10.1 MG/DL Magnesium Level 2.5 H 1.6-2.4 MG/DL Total Bilirubin 0.4 0.1-1.0 MG/DL Aspartate Amino Transf (AST/SGOT) 26 5-34 U/L Alanine Aminotransferase (ALT/SGPT) 29 0-55 U/L Alkaline Phosphatase 102 40-136 U/L Total Creatine Kinase 176 H 29-168 U/L Creatine Kinase MB 2.8 <6.6 NG/ML Myoglobin 48.6 10.0-92.0 NG/ML Troponin I < 0.028 <0.028 NG/ML B-Type Natriuretic Peptide < 10.0 <100.0 PG/ML Total Protein 9.0 H 6.4-8.2 GM/DL Albumin 5.3 H 3.2-4.5 GM/DL Amylase Level 80 25-125 U/L Lipase 47 8-78 U/L Serum Test, Qualitative NEGATIVE NEGATIVE Salicylates Level < 5.0 L 5.0-20.0 MG/DL Acetaminophen Level < 10 L 10-30 UG/ML Serum Alcohol 10 <10 MG/DL My Orders Orders - DIANA,ANDREIA Anne DO Cbc With Automated Diff (12/18/19 20:21) Magnesium (12/18/19 20:21) Chest 1 View, Ap/Pa Only (12/18/19 20:21) Ekg Tracing (12/18/19 20:21) Comprehensive Metabolic Panel (12/18/19 20:21) Myoglobin Serum (12/18/19 20:21) Protime With Inr (12/18/19 20:21) Partial Thromboplastin Time (12/18/19 20:21) O2 (12/18/19 20:21) Monitor-Rhythm Ecg Trace Only (12/18/19 20:21) Ed Iv/Invasive Line Start (12/18/19 20:21) Creatine Kinase (12/18/19 20:21) Creatine Kinase Mb (12/18/19 20:21) Lipase (12/18/19 20:21) Amylase (12/18/19 20:21) BNP (12/18/19 20:21) Troponin I (12/18/19 20:21) Nitroglycerin 0.4 Mg Btl 25's (Nitrostat (12/18/19 20:30) Aspirin Chewable Tablet (Baby Aspirin Ch (12/18/19 20:30) Acetaminophen (12/18/19 20:22) Alcohol (12/18/19 20:22) Drug Screen Stat (Urine) (12/18/19 20:22) Hcg,Qualitative Serum (12/18/19 20:22) Salicylate (12/18/19 20:22) Ua Culture If Indicated (12/18/19 20:22) Medications Given in ED Current Medications Medications Dose Ordered Sig/Louis Route Start Time Stop Time Status Last Admin Dose Admin Aspirin 324 mg ONCE ONCE PO 12/18/19 20:30 12/18/19 20:31 DC 12/18/19 20:32 324 MG Nitroglycerin 0.4 mg UD PRN SL 12/18/19 20:30 12/18/19 21:19 DC 12/18/19 20:32 0.4 MG Vital Signs/I&O 12/18/19 12/18/19 12/18/19 20:20 20:20 20:20 Temp 36.7 Pulse 123 Resp 24 B/P (MAP) 151/104 (120) Pulse Ox 100 100 O2 Delivery Room Air Room Air Room Air Blood Pressure Mean: 120 Progress Progress Note : Progress Note PT GIVEN NTG X 1 WITHOUT RELIEF. WANTS SOMETHING STRONGER FOR PAIN--PT HAS BEEN ADVISED THAT SHE WOULD NOT BE GETTING ANY NARCOTICS AT THIS TIME, ALL TEST RESULTS ARE STILL PENDING. PT REFUSED TO GIVE URINE SPECIMEN 2100--PT HAS RIPPED OUT HER IV AND STATES SHE IS LEAVING--BLOOD ALL OVER BED, FLOOR, SINK, ETC. PT FREELY MOVING ALL EXTREMITIES, ABLE TO DRESS HERSELF AND FREELY USE HER LEFT ARM--MOVING IT IN ALL DIRECTIONS. WAILING/SOBBING AND PREVIOUS BEHAVIOR HAS STOPPED PT LEFT ER. PT SIGNED OUT AGAINST MEDICAL ADVICE. Initial ECG Impression Date: Dec 18, 2019 Initial ECG Impression Time: 20:27 Initial ECG Rate: 113 Initial ECG Rhythm: S.Tach Departure Impression Primary Impression: Left against medical advice Disposition: 07 AGAINST MEDICAL ADVICE Condition: Against Medical Advice Departure-Patient Inst. Referrals: NO,LOCAL PHYSICIAN (PCP) Primary Care Physician Scripts No Active Prescriptions or Reported Meds ANDREIA ORTIZ DO Dec 19, 2019 04:26
== END 2019-12-18 21:00 | disposition left against medical advice (07) ==
LOC: EDUNIT# 20:13 → ER 20:14
DX: R07.9 Chest pain, unspecified (principal); M25.512 Pain in left shoulder; F17.210 Nicotine dependence, cigarettes, uncomplicated; Z88.8 Allergy status to other drugs, medicaments and biological substances; Z88.6 Allergy status to analgesic agent; Z88.5 Allergy status to narcotic agent; Z80.8 Family history of malignant neoplasm of other organs or systems
CPT/HCPCS: 36415; 71045; 80053; 80320; 80329; 82150; 82550; 82553; 83690; 83735; 83874; 83880; 84484; 84703; 85025; 85610; 85730; 93005; 93041

== ENCOUNTER 2020-04-09 20:33 | Emergency (ER) | payer MEDICAID ==
[~2020-04-09] VITALS: Ht 157.5 cm; Wt 64.0 kg
[~2020-04-09 20:33] MED LIST changes: +ACHD5005; -HYDR-3812
--- NOTE | 2020-04-09 20:54 | ED Upper Extremity ---
General Chief Complaint: Upper Extremity Stated Complaint: RIGHT SHOULDER/ARM PAIN Source: patient Exam Limitations: no limitations History of Present Illness Date Seen by Provider: April 09, 2020 Time Seen by Provider: 20:51 Initial Comments 49-year-old female who presents to the emergency room with complaints of right shoulder pain after falling out of bed yesterday. She reports that she has been using ibuprofen for pain relief without improvement. She is tearful on exam and has limited range of motion of the right shoulder. Onset: just prior to arrival Pain/Injury Location: right shoulder Method of Injury: fell Modifying Factors: Worse With Movement Allergies and Home Medications Allergies Coded Allergies: lorazepam (Unverified Allergy, Mild, "JITTERY", 04/09/20) dicyclomine (Unverified Allergy, Unknown, 04/09/20) ketorolac tromethamine (Unverified Allergy, Unknown, 04/09/20) prochlorperazine (Verified Allergy, Unknown, "JITTERY", 06/17/08) promethazine (Verified Allergy, Unknown, CONFUSED, AGITATED, 06/17/08) tramadol HCl (Verified Adverse Reaction, Mild, Anxiety, 04/26/13) Pt states she requires Benadryl to calm her down if she takes Ultram or Toradol. Does not have a true allergy to Ultram. Patient Home Medication List Home Medication List Reviewed: Yes Review of Systems Constitutional: see HPI; No chills, No fever Musculoskeletal: see HPI, joint pain (right shoulder) All Other Systems Reviewed Negative Unless Noted: Yes Past Lkbjkvr-Mjrlxa-Ahgstk Hx Past Med/Social Hx: Reviewed Nursing Past Med/Soc Hx Patient Social History Alcohol Use: Denies Use Recreational Drug Use: No (DENIES CURRENT DRUG USE) Drug of Choice: UDS+ FOR METH/AMPHETAMINES; OPIATE USE/ABUSE-OXYCODONE Type Used: Cigarettes 2nd Hand Smoke Exposure: No Recent Foreign Travel: No Contact w/Someone Who Travel: No Recent Hopitalizations: No Physical Abuse: No Sexual Abuse: No Mistreated: No Fear: No Immunizations Up To Date Tetanus Booster (TDap): Less than 5yrs PED Vaccines UTD: Yes Date of Pneumonia Vaccine: Nov 04, 2013 Date of Influenza Vaccine: Jul 14, 2014 Seasonal Allergies Seasonal Allergies: No Past Medical History Surgeries: Yes (R OOPHORECTOMY; L BREAST CYST REMOVED;ALEKSANDR/BSO;D&C;EGD/COLONOSCOPIES;BLADDER) Bladder Surgery, Breast, Hysterectomy, Oophorectomy, 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 Respiratory: Yes Asthma, Chronic Bronchitis Cardiac: No Neurological: No Reproductive Disorders: Yes (HYST/BSO; RIGHT OOPORECTOMY FOR CYSTS) Female Reproductive Disorders: 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, 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 Sexually Transmitted Disease: No HIV/AIDS: No Genitourinary: Yes (INCONTINENCE/CYSTOCOELE-S/P PUBO-VAGINAL SLING 2013) Bladder Infection, Kidney Stones, UTI-Chronic Gastrointestinal: Yes (GASTRIC EROSIONS, CHRONIC ABDOMINAL PAIN; QUESTIONABLE HISTORY OF HEP C) Gastroesophageal Reflux, Hemorrhoids, Hiatal Hernia, Ulcer, Gall Bladder Disease Musculoskeletal: Yes (RESTLESS LEG SYNDROME) Arthritis, Chronic Back Pain Endocrine: No HEENT: No Cancer: No Psychosocial: Yes Anxiety, Depression Integumentary: No Blood Disorders: No Family Medical History Reviewed Nursing Family Hx Abdominal aortic aneurysm 19 FATHER Cancer of mouth GRANDMOTHER Diabetes mellitus 19 MOTHER Thyroid disease 19 MOTHER Heart Disease CYSPSH: -EGD'S/COLONOSCOPIES--LAST ONE HERE 2013--GASTRIC EROSIONS, SMALL HIATAL HERNIA, GERD, HEMORRHOIDS -PUBO-VAGINAL SLING + CYSTOSCOPY 2013--DR. GARCIA -BTL -D&C -ALEKSANDR/BSO -RIGHT OOPHORECTOMY FOR CYST -LEFT BREAST BIOPSY/CYST REMOVAL Physical Exam Vital Signs Vital Signs - First Documented 04/09/20 20:40 Temp 37.0 Pulse 101 Resp 18 B/P (MAP) 135/78 (97) Pulse Ox 100 Capillary Refill : Height, Weight, BMI Height: 5'2.00" Weight: 128lbs. 0oz. 58.243255vn; 25.00 BMI Method:Stated General Appearance: WD/WN, no apparent distress Cardiovascular: normal peripheral pulses, regular rate, rhythm, no edema, no gallop, no JVD, no murmur Respiratory: chest non-tender, lungs clear, normal breath sounds, no respiratory distress, no accessory muscle use Shoulder: normal inspection, limited ROM (increased pain with range of motion, patient does have full range of motion of the arm.) Neurologic/Psychiatric: alert, normal mood/affect, oriented x 3 Skin: normal color, warm/dry Progress/Results/Core Measures Results/Orders My Orders Orders - ELPIDIO CARTAGENA Shoulder, Right, 3 Views (04/09/20 20:49) Hydrocodone/Apap 5/325 Tablet (Lortab 5 (04/09/20 22:00) Medications Given in ED Current Medications Medications Dose Ordered Sig/Louis Route Start Time Stop Time Status Last Admin Dose Admin Acetaminophen/ Hydrocodone Bitart 1 tab ONCE ONCE PO 04/09/20 22:00 04/09/20 22:01 DC 04/09/20 21:58 1 TAB Vital Signs/I&O 04/09/20 04/09/20 20:40 21:58 Temp 37.0 Pulse 101 98 Resp 18 20 B/P (MAP) 135/78 (97) 127/74 (97) Pulse Ox 100 100 Progress Progress Note : Time: 21:55 Progress Note I have seen and evaluated the patient. I've informed her of her imaging studies. She was placed in a sling for comfort and wear as needed. She agrees with plan of care, plans for discharge, return precautions were given. Departure Impression Primary Impression: Contusion of shoulder, right Disposition: HOME, SELF-CARE Condition: Stable/Unchanged Departure-Patient Inst. Decision time for Depature: 21:55 Referrals: NO,LOCAL PHYSICIAN (PCP/Family) Primary Care Physician Patient Instructions: Shoulder Pain (DC) Add. Discharge Instructions: Ice to the sore areas at 20 minute intervals. You may use ibuprofen and Tylenol as needed for pain relief. Follow-up with your primary care provider within 1 week for recheck. Return back to the emergency room for worsening symptoms or concerns as needed. All discharge instructions reviewed with patient and/or family. Voiced understanding. ELPIDIO CARTAGENA April 09, 2020 20:54
--- NOTE | 2020-04-09 21:29 | Diagnostic Imaging Report ---
INDICATION: Fall, pain. EXAMINATION: Three views of the right shoulder. FINDINGS: Clavicle appears unremarkable. The AC and CC joint spaces are normal. The glenohumeral relationship is normal. The scapula appear intact. The visualized adjacent ribs and pleura are unremarkable. IMPRESSION: No acute appearing abnormality. Dictated by: Dictated on workstation # [id number]
[2020-04-09 21:58] VITALS: BP 127/74
[2020-04-09] MEDS ORDERED: HYDROcodone/APAP 5 MG/325 MG (LORTAB) TAB PO ONE (22:00)
== END 2020-04-09 22:02 | disposition home or self-care (01) ==
LOC: EDUNIT# 20:33 → ER 20:34
DX: S40.011A Contusion of right shoulder, initial encounter (principal); Z88.5 Allergy status to narcotic agent; Z88.8 Allergy status to other drugs, medicaments and biological substances; Z88.6 Allergy status to analgesic agent; Z80.8 Family history of malignant neoplasm of other organs or systems; W06.XXXA Fall from bed, initial encounter
CPT/HCPCS: 73030

== ENCOUNTER 2020-04-23 17:36 | Emergency (ER) | payer MEDICAID ==
[~2020-04-23] VITALS: Ht 157.2 cm; Wt 63.9 kg
[2020-04-23] MEDS ORDERED: NS IV 1000 ML 1,000 ML IV SCH (17:42)
[2020-04-23 17:59] LABS: BILIRUBIN,URINE NEGATIVE (NEGATIVE); CLARITY,URINE CLEAR; COLOR,URINE YELLOW; GLUCOSE, URINE (UA) NEGATIVE (NEGATIVE); KETONES,URINE NEGATIVE (NEGATIVE); LEUKOCYTE ESTERASE ,URINE NEGATIVE (NEGATIVE); NITRITE,URINE NEGATIVE (NEGATIVE); PROTEIN,URINE NEGATIVE (NEGATIVE)
[2020-04-23 18:06] LABS: BACTERIA,URINE NEGATIVE /HPF; RBC,URINE 0-2 /HPF; SQUAMOUS EPITHELIAL CELL,UR 0-2 /HPF
[2020-04-23 18:07] LABS: BASOPHILS % (AUTO) 0 % (0-10); EOSINOPHILS # (AUTO) 0.4 10^3/uL (0.0-0.3); EOSINOPHILS % (AUTO) 3 % (0-10); HEMATOCRIT 40 % (35-52); HEMOGLOBIN 13.8 G/DL (11.5-16.0); LYMPHOCYTES # (AUTO) 3.8 X 10^3 (1.0-4.0); LYMPHOCYTES % (AUTO) 36 % (12-44); MEAN CORPUSCULAR HEMOGLOBIN 31 PG (25-34); MEAN CORPUSCULAR HGB CONC 34 G/DL (32-36); MEAN CORPUSCULAR VOLUME 89 FL (80-99); MEAN PLATELET VOLUME 9.7 FL (7.4-10.4); MONOCYTES # (AUTO) 0.9 X 10^3 (0.0-1.0); MONOCYTES % (AUTO) 9 % (0-12); NEUTROPHILS # (AUTO) 5.4 X 10^3 (1.8-7.8); NEUTROPHILS % (AUTO) 51 % (42-75); PLATELET COUNT 404 10^3/uL (130-400); RED CELL DISTRIBUTION WIDTH 12.7 % (10.0-14.5); WHITE BLOOD COUNT 10.4 10^3/uL (4.3-11.0)
[2020-04-23 18:13] LABS: ALBUMIN 4.5 GM/DL (3.2-4.5); CHLORIDE 104 MMOL/L (98-107); POTASSIUM 3.8 MMOL/L (3.6-5.0); SODIUM 139 MMOL/L (135-145)
[2020-04-23 18:14] LABS: AMYLASE 87 U/L (25-125); CALCIUM 9.8 MG/DL (8.5-10.1)
[2020-04-23 18:15] LABS: GLUCOSE 93 MG/DL (70-105); TOTAL PROTEIN 7.9 GM/DL (6.4-8.2)
[2020-04-23 18:16] LABS: CARBON DIOXIDE 24 MMOL/L (21-32)
[2020-04-23 18:17] LABS: BILIRUBIN,TOTAL 0.2 MG/DL (0.1-1.0)
[2020-04-23 18:19] LABS: ALKALINE PHOSPHATASE 91 U/L (40-136); CREATININE SERUM 0.84 MG/DL (0.60-1.30); GFR ESTIMATED > 60
[2020-04-23 18:20] LABS: BUN/CREATININE RATIO 20
[2020-04-23 18:22] LABS: ALANINE AMINOTRANSFERASE 20 U/L (0-55); LIPASE 41 U/L (8-78)
[2020-04-23] MEDS ORDERED: fentaNYL INJECTION 100 MCG/2 ML AMP IVP ONE ×2 (18:30→19:30)
[2020-04-23] MEDS ORDERED: ONDANSETRON 4 MG/2 ML (SDV) Z0FRAN IVP ONE (18:30)
[2020-04-23 18:48] LABS: BENZODIAZEPINES SCREEN URINE NEGATIVE (NEGATIVE); COCAINE SCREEN URINE NEGATIVE (NEGATIVE)
[2020-04-23 18:49] LABS: AMPHETAMINE SCREEN, URINE POSITIVE (NEGATIVE); BARBITURATE SCREEN URINE NEGATIVE (NEGATIVE); CANNABINOID SCREEN, URINE POSITIVE (NEGATIVE); METHADONE STAT NEGATIVE (NEGATIVE); METHAMPHETAMINE SCREEN URINE S NEGATIVE (NEGATIVE); OPIATE SCREEN URINE NEGATIVE (NEGATIVE); OXYCODONE STAT NEGATIVE (NEGATIVE); PROPOXYPHENE STAT NEGATIVE (NEGATIVE); TRICYCLIC ANTIDEPRESSANTS SCRE NEGATIVE (NEGATIVE)
--- NOTE | 2020-04-23 19:10 | Diagnostic Imaging Report ---
PROCEDURE: CT urinary tract, rule out kidney stone. TECHNIQUE: Multiple contiguous axial images were obtained through the abdomen and pelvis without the use of intravenous contrast. Auto Exposure Controls were utilized during the CT exam to meet ALARA standards for radiation dose reduction. INDICATION: Right flank pain. Vomiting The liver, spleen, pancreas and adrenals are normal. There is a 3 mm nonobstructing calculus in the upper pole of the left kidney. No calculus on the right is seen. There is no hydronephrosis on either side. The ureters are not dilated. There are numerous calcifications in the pelvis which most likely represent calcified phleboliths. Bladder is normal. The appendix is not visualized but no edema or fluid is seen around the cecum. No acute bowel abnormality is seen. There is no free intraperitoneal air or fluid. IMPRESSION: No acute abnormality is seen. Dictated by: Dictated on workstation # [id number]
--- NOTE | 2020-04-23 19:18 | ED Abdominal Pain ---
General Chief Complaint: Abdominal/GI Problems Stated Complaint: KIDNEY/BACK PAIN, SENT FROM [facility] Nursing Triage Note: RUQ pain that started last night at approx 1700 after eating spicy tacos, states pain started after eating spicy tacos Sepsis Screen: No Definite Risk History of Present Illness Date Seen by Provider: Apr 23, 2020 Time Seen by Provider: 17:50 Initial Comments 49-year-old female presents for intermittent right upper quadrant pain started yesterday. She's had multiple episodes of nausea and vomiting today. No diarrhea. No previous abdominal surgery. Timing/Duration: 1-2 Days Severity/Quality: Moderate Location: RUQ Associated Symptoms: Nausea/Vomiting Allergies and Home Medications Allergies Coded Allergies: lorazepam (Unverified Allergy, Mild, "JITTERY", 04/09/20) dicyclomine (Unverified Allergy, Unknown, 04/09/20) ketorolac tromethamine (Unverified Allergy, Unknown, 04/09/20) prochlorperazine (Verified Allergy, Unknown, "JITTERY", 06/17/08) promethazine (Verified Allergy, Unknown, CONFUSED, AGITATED, 06/17/08) tramadol HCl (Verified Adverse Reaction, Mild, Anxiety, 04/26/13) Pt states she requires Benadryl to calm her down if she takes Ultram or Toradol. Does not have a true allergy to Ultram. Uncoded Allergies: iodine contrast (Adverse Reaction, Mild, 04/23/20) Patient Home Medication List Home Medication List Reviewed: Yes Review of Systems Review of Systems Constitutional: no symptoms reported, see HPI; No fever Gastrointestinal: See HPI, Abdominal Pain; Denies Diarrhea; Nausea, Vomiting All Other Systems Reviewed Negative Unless Noted: Yes Past Ixjncua-Tvslro-Hrqybi Hx Past Med/Social Hx: Reviewed Nursing Past Med/Soc Hx Patient Social History Alcohol Use: Denies Use Recreational Drug Use: No Drug of Choice: hx of UDS+ FOR METH/AMPHETAMINES; OPIATE USE/ABUSE-OXYCODONE Type Used: Cigarettes 2nd Hand Smoke Exposure: No Recent Foreign Travel: No Contact w/Someone Who Travel: No Recent Infectious Disease Expo: No Recent Hopitalizations: No Immunizations Up To Date Tetanus Booster (TDap): Less than 5yrs PED Vaccines UTD: Yes Date of Pneumonia Vaccine: Nov 04, 2013 Date of Influenza Vaccine: Jul 14, 2014 Seasonal Allergies Seasonal Allergies: No Past Medical History Surgeries: Yes (R OOPHORECTOMY; L BREAST CYST R EMOVED;ALEKSANDR/BSO;D&C;EGD/COLONOSCOPIES;BLADDER) Bladder Surgery, Breast, Hysterectomy, Oophorectomy, 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 Respiratory: Yes Asthma, Chronic Bronchitis Cardiac: No Neurological: No Reproductive Disorders: Yes (HYST/BSO; RIGHT OOPORECTOMY FOR CYSTS) Female Reproductive Disorders: 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, Ovarian Cyst [employer] History: Hysterectomy Sexually Transmitted Disease: No HIV/AIDS: No Genitourinary: Yes (INCONTINENCE/CYSTOCOELE-S/P PUBO-VAGINAL SLING 2013) Bladder Infection, Kidney Stones, UTI-Chronic Gastrointestinal: Yes (GASTRIC EROSIONS, CHRONIC ABDOMINAL PAIN; QUESTIONABLE HISTORY OF HEP C) Gastroesophageal Reflux, Hemorrhoids, Hiatal Hernia, Ulcer, Gall Bladder Disease Musculoskeletal: Yes (RESTLESS LEG SYNDROME) Arthritis, Chronic Back Pain Endocrine: No HEENT: No Cancer: No Psychosocial: Yes Anxiety, Depression Integumentary: No Blood Disorders: No Family Medical History Abdominal aortic aneurysm 19 FATHER Cancer of mouth GRANDMOTHER Diabetes mellitus 19 MOTHER Thyroid disease 19 MOTHER Heart Disease CYSPSH: -EGD'S/COLONOSCOPIES--LAST ONE HERE 2013--GASTRIC EROSIONS, SMALL HIATAL HERNIA, GERD, HEMORRHOIDS -PUBO-VAGINAL SLING + CYSTOSCOPY 2013--DR. GARCIA -BTL -D&C -ALEKSANDR/BSO -RIGHT OOPHORECTOMY FOR CYST -LEFT BREAST BIOPSY/CYST REMOVAL Physical Exam Vital Signs Vital Signs - First Documented 04/23/20 04/23/20 17:45 19:41 Temp 36.9 Pulse 91 Resp 18 B/P (MAP) 121/96 (104) Pulse Ox 97 O2 Delivery Room Air Capillary Refill : Less Than 3 Seconds Height/Weight/BMI Height: 5'2.00" Weight: 128lbs. 0oz. 58.378018jn; 25.00 BMI Method:Stated General Appearance: WD/WN, no apparent distress HEENT: PERRL/EOMI, normal ENT inspection, TMs normal, pharynx normal Neck: non-tender, full range of motion, supple, normal inspection Respiratory: chest non-tender, lungs clear, normal breath sounds Cardiovascular: normal peripheral pulses, regular rate, rhythm Gastrointestinal: normal bowel sounds, non tender, soft; No distended; guard ing; No rebound; tenderness (right upper quadrant), other (positive Carter sign) Back: normal inspection, no CVA tenderness, no vertebral tenderness Neurologic/Psychiatric: no motor/sensory deficits, alert, normal mood/affect, oriented x 3 Skin: normal color, warm/dry; No jaundice Progress/Results/Core Measures Results/Orders Lab Results Laboratory Tests Test 04/23/20 17:40 04/23/20 17:57 Range/Units Urine Color YELLOW Urine Clarity CLEAR Urine pH 6.0 5-9 Urine Specific [place] >=1.030 1.016-1.022 Urine Protein NEGATIVE NEGATIVE Urine Glucose (UA) NEGATIVE NEGATIVE Urine Ketones NEGATIVE NEGATIVE Urine Nitrite NEGATIVE NEGATIVE Urine Bilirubin NEGATIVE NEGATIVE Urine Urobilinogen 0.2 < = 1.0 MG/DL Urine Leukocyte Esterase NEGATIVE NEGATIVE Urine RBC (Auto) TRACE-L NEGATIVE Urine RBC 0-2 /HPF Urine WBC NONE /HPF Urine Squamous Epithelial Cells 0-2 /HPF Urine Crystals NONE /LPF Urine Bacteria NEGATIVE /HPF Urine Casts NONE /LPF Urine Mucus NEGATIVE /LPF Urine Culture Indicated NO Urine Opiates Screen NEGATIVE NEGATIVE Urine Oxycodone Screen NEGATIVE NEGATIVE Urine Methadone Screen NEGATIVE NEGATIVE Urine Propoxyphene Screen NEGATIVE NEGATIVE Urine Barbiturates Screen NEGATIVE NEGATIVE Ur Tricyclic Antidepressants Screen NEGATIVE NEGATIVE Urine Phencyclidine Screen NEGATIVE NEGATIVE Urine Amphetamines Screen POSITIVE H NEGATIVE Urine Methamphetamines Screen NEGATIVE NEGATIVE Urine Benzodiazepines Screen NEGATIVE NEGATIVE Urine Cocaine Screen NEGATIVE NEGATIVE Urine Cannabinoids Screen POSITIVE H NEGATIVE White Blood Count 10.4 4.3-11.0 10^3/uL Red Blood Count 4.52 4.35-5.85 10^6/uL Hemoglobin 13.8 11.5-16.0 G/DL Hematocrit 40 35-52 % Mean Corpuscular Volume 89 80-99 FL Mean Corpuscular Hemoglobin 31 25-34 PG Mean Corpuscular Hemoglobin Concent 34 32-36 G/DL Red Cell Distribution Width 12.7 10.0-14.5 % Platelet Count 404 H 130-400 10^3/uL Mean Platelet Volume 9.7 7.4-10.4 FL Neutrophils (%) (Auto) 51 42-75 % Lymphocytes (%) (Auto) 36 12-44 % Monocytes (%) (Auto) 9 0-12 % Eosinophils (%) (Auto) 3 0-10 % Basophils (%) (Auto) 0 0-10 % Neutrophils # (Auto) 5.4 1.8-7.8 X 10^3 Lymphocytes # (Auto) 3.8 1.0-4.0 X 10^3 Monocytes # (Auto) 0.9 0.0-1.0 X 10^3 Eosinophils # (Auto) 0.4 H 0.0-0.3 10^3/uL Basophils # (Auto) 0.0 0.0-0.1 10^3/uL Sodium Level 139 135-145 MMOL/L Potassium Level 3.8 3.6-5.0 MMOL/L Chloride Level 104 98-107 MMOL/L Carbon Dioxide Level 24 21-32 MMOL/L Anion Gap 11 5-14 MMOL/L Blood Urea Nitrogen 17 7-18 MG/DL Creatinine 0.84 0.60-1.30 MG/DL Estimat Glomerular Filtration Rate > 60 BUN/Creatinine Ratio 20 Glucose Level 93 70-105 MG/DL Calcium Level 9.8 8.5-10.1 MG/DL Corrected Calcium 9.4 8.5-10.1 MG/DL Total Bilirubin 0.2 0.1-1.0 MG/DL Aspartate Amino Transf (AST/SGOT) 24 5-34 U/L Alanine Aminotransferase (ALT/SGPT) 20 0-55 U/L Alkaline Phosphatase 91 40-136 U/L Total Protein 7.9 6.4-8.2 GM/DL Albumin 4.5 3.2-4.5 GM/DL Amylase Level 87 25-125 U/L Lipase 41 8-78 U/L My Orders Orders - GUS WHARTON Comprehensive Metabolic Panel (04/23/20 17:37) Lipase (04/23/20 17:37) Amylase (04/23/20 17:37) Ua Culture If Indicated (04/23/20 17:37) Cbc With Automated Diff (04/23/20 17:37) Ed Iv/Invasive Line Start (04/23/20 17:37) Ed Iv/Invasive Line Start (04/23/20 17:42) Ns Iv 1000 Ml (Sodium Chloride 0.9%) (04/23/20 17:42) Drug Screen Stat (Urine) (04/23/20 18:07) Ct Abd/Pelvis Wo(Kidney Stone) (04/23/20 18:28) Ondansetron Injection (Zofran Injectio (04/23/20 18:30) Fentanyl Injection (Sublimaze Injection (04/23/20 18:30) Rx-Ondansetron Po (Rx-Zofran Po) (04/23/20 19:21) Rx-Hydrocodone/Apap 5-325 Mg (Rx-Vicodin (04/23/20 19:30) Fentanyl Injection (Sublimaze Injection (04/23/20 19:30) Medications Given in ED Current Medications Medications Dose Ordered Sig/Louis Route Start Time Stop Time Status Last Admin Dose Admin Acetaminophen/ Hydrocodone Bitart 1 ea Q6H PRN PO 04/23/20 19:30 04/23/20 19:42 DC 04/23/20 19:37 1 EA Fentanyl Citrate 25 mcg ONCE ONCE IVP 04/23/20 18:30 04/23/20 18:32 DC 04/23/20 18:38 25 MCG Fentanyl Citrate 50 mcg ONCE ONCE IVP 04/23/20 19:30 04/23/20 19:31 DC 04/23/20 19:35 50 MCG Ondansetron HCl 8 mg ONCE ONCE IVP 04/23/20 18:30 04/23/20 18:32 DC 04/23/20 18:38 8 MG Vital Signs/I&O 04/23/20 04/23/20 17:45 19:41 Temp 36.9 36.9 Pulse 91 91 Resp 18 18 B/P (MAP) 121/96 (104) 120/87 (104) Pulse Ox 97 O2 Delivery Room Air Blood Pressure Mean: 104 Progress Progress Note : Time: 17:50 Progress Note Patient seen and evaluated, will obtain labs, normal saline 1 L per IV, Zofran 8 mg for nausea and fentanyl 25 g for pain. [address] of abdomen and pelvis as ultrasound is not available. 1899 patient reports pain and nausea improved. Awaiting CT results. 1919 CT results show no acute abnormalities. Patient does report pain is returning. Will give fentanyl and discharge pack of hydrocodone and Zofran. Discharge instructions and return precautions reviewed with her. Diagnostic Imaging Diagonstic Imaging: CT Plain Films/CT/US/NM/MRI: abdomen, pelvis Comments NAME: GUERA VALDOVINOS MED REC#: [id number] PT STATUS: REG ER : 1970 PHYSICIAN: GUS WHARTON ADMIT DATE: 04/23/20/ER Draft Date of Exam:04/23/20 CT ABD/PELVIS WO(KIDNEY STONE) PROCEDURE: CT urinary tract, rule out kidney stone. TECHNIQUE: Multiple contiguous axial images were obtained through the abdomen and pelvis without the use of intravenous contrast. Auto Exposure Controls were utilized during the CT exam to meet ALARA standards for radiation dose reduction. INDICATION: Right flank pain. Vomiting The liver, spleen, pancreas and adrenals are normal. There is a 3 mm nonobstructing calculus in the upper pole of the left kidney. No calculus on the right is seen. There is no hydronephrosis on either side. The ureters are not dilated. There are numerous calcifications in the pelvis which most likely represent calcified phleboliths. Bladder is normal. The appendix is not visualized but no edema or fluid is seen around the cecum. No acute bowel abnormality is seen. There is no free intraperitoneal air or fluid. IMPRESSION: No acute abnormality is seen. Dictated on workstation # [id number] Dict: 04/23/201903 Trans: 04/23/201909 [facility] [id number] Interpreted by: COSTA SOL MD Electronically signed by: Reviewed: Reviewed by Me Departure Impression Primary Impression: Pain in the abdomen Qualified Codes: R10.31 - Right lower quadrant pain Additional Impression: Nausea and vomiting Qualified Codes: R11.2 - Nausea with vomiting, unspecified Disposition: 01 HOME, SELF-CARE Condition: Improved Departure-Patient Inst. Decision time for Depature: 19:20 Referrals: [facility]/AL[facility] E[facility]SWOR[facility] MD NO,LOCAL PHYSICIAN (PCP) Primary Care Physician Patient Instructions: Acute Abdomen (Belly Pain), Adult (DC), Gallstones (DC) Add. Discharge Instructions: Clear liquid diet for 6 hours, then bland diet Use Zofran for nausea Call Dr. Daniels for follow up Tylenol 650 mg every 6-8 hours for pain. Follow up with your primary care provider or schedule appt with General Surgery. Return to the emergency department for new, urgent health. All discharge instructions reviewed with patient and/or family. Voiced under standing. GUS WHARTON Apr 23, 2020 19:18
[2020-04-23] MEDS ORDERED: RX-ONDANSETRON 4 MG ODT (ZOFRAN) PPK #4 PO STA (19:21)
[2020-04-23] MEDS ORDERED: RX-HYDROCODONE/APAP 5/325 MG #4 TAB PK PO PRN (19:30)
[2020-04-23 19:41] VITALS: BP 120/87
== END 2020-04-23 19:41 | disposition home or self-care (01) ==
LOC: EDUNIT# 17:36 → ER 17:38
DX: R10.11 Right upper quadrant pain (principal); R11.2 Nausea with vomiting, unspecified; Z88.8 Allergy status to other drugs, medicaments and biological substances; Z88.6 Allergy status to analgesic agent; Z88.5 Allergy status to narcotic agent; Z91.041 Radiographic dye allergy status; Z80.8 Family history of malignant neoplasm of other organs or systems
CPT/HCPCS: 36415; 74176; 80053; 80306; 81000; 82150; 83690; 85025

== ENCOUNTER 2020-06-09 21:59 | Emergency (ER) | payer MEDICAID ==
[~2020-06-09] VITALS: Ht 157 cm; Wt 63.5 kg
[2020-06-09] MEDS ORDERED: ACETAMINOPHEN 500 MG TAB (TYLENOL) PO ONE (22:30)
[2020-06-09] MEDS ORDERED: IBUPROFEN 800 MG (MOTRIN) TAB PO ONE (22:30)
--- NOTE | 2020-06-09 23:14 | ED Upper Extremity ---
General Chief Complaint: Upper Extremity Stated Complaint: R HAND PAIN Nursing Triage Note: Pt to [facility] with c/o right wrist pain after falling on arm. Pt denies taking any pain meds prior to arrival. Mild swelling present to wrist. Pulse present. Nursing Sepsis Screen: No Definite Risk Source: patient Exam Limitations: no limitations History of Present Illness Date Seen by Provider: Jun 09, 2020 Time Seen by Provider: 22:31 Initial Comments 49 year old female who presents to the ER with complaints of right hand pain and minimal swelling to the pad of her right hand after falling while running from a dog. Denies other injuries from the fall. She has full ROM of the hand and normal cap refill and radial pulses present. Onset: just prior to arrival Pain/Injury Location: right hand Method of Injury: fell Modifying Factors: Worse With Movement Allergies and Home Medications Allergies Coded Allergies: lorazepam (Unverified Allergy, Mild, "JITTERY", 04/09/20) dicyclomine (Unverified Allergy, Unknown, 04/09/20) ketorolac tromethamine (Unverified Allergy, Unknown, 04/09/20) prochlorperazine (Verified Allergy, Unknown, "JITTERY", 06/17/08) promethazine (Verified Allergy, Unknown, CONFUSED, AGITATED, 06/17/08) tramadol HCl (Verified Adverse Reaction, Mild, Anxiety, 04/26/13) Pt states she requires Benadryl to calm her down if she takes Ultram or Toradol. Does not have a true allergy to Ultram. Uncoded Allergies: iodine contrast (Adverse Reaction, Mild, 04/23/20) Patient Home Medication List Home Medication List Reviewed: Yes Review of Systems Constitutional: see HPI; No chills, No fever Musculoskeletal: see HPI, joint pain (hand pain right ) All Other Systems Reviewed Negative Unless Noted: Yes Past Rcwrayk-Ycjmab-Vprkyb Hx Past Med/Social Hx: Reviewed Nursing Past Med/Soc Hx Patient Social History Alcohol Use: Rarely Uses Recreational Drug Use: No Drug of Choice: hx of UDS+ FOR METH/AMPHETAMINES; OPIATE USE/ABUSE-OXYCODONE Smoking Status: Current Everyday Smoker Type Used: Cigarettes 2nd Hand Smoke Exposure: No Recent Foreign Travel: No Contact w/Someone Who Travel: No Recent Infectious Disease Expo: No Recent Hopitalizations: No Immunizations Up To Date Tetanus Booster (TDap): Less than 5yrs PED Vaccines UTD: Yes Date of Pneumonia Vaccine: Nov 04, 2013 Date of Influenza Vaccine: Jul 14, 2014 Seasonal Allergies Seasonal Allergies: No Past Medical History Surgeries: Yes (R OOPHORECTOMY; L BREAST CYST REMOVED;ALEKSANDR/BSO;D&C;EGD/COLONOSCOPIES;BLADDER) Bladder Surgery, Breast, Hysterectomy, Oophorectomy, 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 Respiratory: Yes Asthma, Chronic Bronchitis Cardiac: No Neurological: No Reproductive Disorders: Yes (HYST/BSO; RIGHT OOPORECTOMY FOR CYSTS) Female Reproductive Disorders: 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, Ovarian Cyst [employer] History: Hysterectomy Sexually Transmitted Disease: No HIV/AIDS: No Genitourinary: Yes (INCONTINENCE/CYSTOCOELE-S/P PUBO-VAGINAL SLING 2013) Bladder Infection, Kidney Stones, UTI-Chronic Gastrointestinal: Yes (GASTRIC EROSIONS, CHRONIC ABDOMINAL PAIN; QUESTIONABLE HISTORY OF HEP C) Gastroesophageal Reflux, Hemorrhoids, Hiatal Hernia, Ulcer, Gall Bladder Disease Musculoskeletal: Yes (RESTLESS LEG SYNDROME) Arthritis, Chronic Back Pain Endocrine: No HEENT: No Cancer: No Psychosocial: Yes Anxiety, Depression Integumentary: No Blood Disorders: No Family Medical History Reviewed Nursing Family Hx Abdominal aortic aneurysm 19 FATHER Cancer of mouth GRANDMOTHER Diabetes mellitus 19 MOTHER Thyroid disease 19 MOTHER Heart Disease CYSPSH: -EGD'S/COLONOSCOPIES--LAST ONE HERE 2013--GASTRIC EROSIONS, SMALL HIATAL HERNIA, GERD, HEMORRHOIDS -PUBO-VAGINAL SLING + CYSTOSCOPY 2013--DR. GARCIA -BTL -D&C -ALEKSANDR/BSO -RIGHT OOPHORECTOMY FOR CYST -LEFT BREAST BIOPSY/CYST REMOVAL Physical Exam Vital Signs Vital Signs - First Documented 06/09/20 22:22 Temp 36.5 Pulse 89 Resp 18 B/P (MAP) 136/88 (104) Pulse Ox 97 O2 Delivery Room Air Capillary Refill : Less Than 3 Seconds Height, Weight, BMI Height: 5'2.00" Weight: 128lbs. 0oz. 58.422806fw; 25.00 BMI Method:Stated General Appearance: WD/WN, no apparent distress Cardiovascular: normal peripheral pulses, regular rate, rhythm, no edema, no ga llop, no JVD, no murmur Respiratory: chest non-tender, lungs clear, normal breath sounds, no respiratory distress, no accessory muscle use Hand: normal ROM, soft tissue tenderness, swelling (mild swelling to the pad of the right hand. ) Neurologic/Tendon: normal sensation, normal motor functions, normal tendon functions, responds to pain, no evidence tendon injury Neurologic/Psychiatric: alert, normal mood/affect, oriented x 3 Skin: normal color, warm/dry Progress/Results/Core Measures Results/Orders Lab Results Laboratory Tests Test 06/09/20 23:12 Range/Units Glucometer 148 H 70-110 MG/DL My Orders Orders - IVAELPIDIO FOFANA Acetaminophen Tablet (Tylenol Tablet) (06/09/20 22:30) Ibuprofen Tablet (Motrin Tablet) (06/09/20 22:30) Hand, Right, 3 Views (06/09/20 22:30) Medications Given in ED Current Medications Medications Dose Ordered Sig/Louis Route Start Time Stop Time Status Last Admin Dose Admin Acetaminophen 1,000 mg ONCE ONCE PO 06/09/20 22:30 06/09/20 22:32 DC 06/09/20 22:46 1,000 MG Ibuprofen 800 mg ONCE ONCE PO 06/09/20 22:30 06/09/20 22:32 DC 06/09/20 22:46 800 MG Vital Signs/I&O 06/09/20 06/09/20 22:22 23:27 Temp 36.5 36.5 Pulse 89 85 Resp 18 18 B/P (MAP) 136/88 (104) 125/85 (104) Pulse Ox 97 97 O2 Delivery Room Air Room Air Blood Pressure Mean: 104 Progress Progress Note : Time: 23:14 Progress Note I have seen and evaluated the patient. I have informed her of her images. She was placed in thumb spika for comfort. She was given tylenol and ibuprofen for pain. She agrees with plan of care, plans for discharge. Return precautions were given. Departure Impression Primary Impression: Contusion of hand Disposition: 01 HOME, SELF-CARE Condition: Stable/Unchanged Departure-Patient Inst. Decision time for Depature: 23:14 Referrals: NO,LOCAL PHYSICIAN (PCP/Family) Primary Care Physician Patient Instructions: Hand Pain (DC) Add. Discharge Instructions: Wear the splint as needed for comfort. Tylenol and ibuprofen as needed for pain. Ice as needed for pain. Follow-up with your primary care physician within 1 week for recheck. Return back to the emergency room for worsening symptoms or concerns as needed. All discharge instructions reviewed with patient and/or family. Voiced understanding. ELPIDIO CARTAGENA Jun 09, 2020 23:14
[2020-06-09 23:27] VITALS: BP 125/85
--- NOTE | 2020-06-10 05:30 | Diagnostic Imaging Report ---
INDICATION: Right hand pain. COMPARISON: 07/12/2019 EXAMINATION: Three views of the right hand were obtained. FINDINGS: No fracture, dislocation or other acute bony abnormality. Joint spaces are well maintained throughout. The soft tissues appear unremarkable. No radiopaque foreign body is identified. IMPRESSION: Unremarkable radiographic exam of the right hand. Dictated by: Dictated on workstation # [id number]
== END 2020-06-09 23:28 | disposition home or self-care (01) ==
LOC: EDUNIT# 21:59 → ER 22:00
DX: S60.221A Contusion of right hand, initial encounter (principal); F17.210 Nicotine dependence, cigarettes, uncomplicated; Z88.6 Allergy status to analgesic agent; Z88.8 Allergy status to other drugs, medicaments and biological substances; Z91.041 Radiographic dye allergy status; Z82.49 Family history of ischemic heart disease and other diseases of the circulatory system; Z80.8 Family history of malignant neoplasm of other organs or systems; W18.39XA Other fall on same level, initial encounter
CPT/HCPCS: 73130; 82962

== ENCOUNTER 2020-07-14 21:34 | Emergency (ER) | payer MEDICAID ==
[~2020-07-14] VITALS: Ht 157 cm; Wt 63.0 kg
[2020-07-14 22:22] LABS: BILIRUBIN,URINE NEGATIVE (NEGATIVE); CLARITY,URINE CLOUDY; COLOR,URINE YELLOW; GLUCOSE, URINE (UA) NEGATIVE (NEGATIVE); KETONES,URINE NEGATIVE (NEGATIVE); LEUKOCYTE ESTERASE ,URINE NEGATIVE (NEGATIVE); NITRITE,URINE NEGATIVE (NEGATIVE); PROTEIN,URINE NEGATIVE (NEGATIVE)
[2020-07-14 22:29] LABS: BACTERIA,URINE FEW /HPF; CALCIUM OXALATE CRYSTALS,UR FEW /LPF
[2020-07-14] MEDS ORDERED: ONDANSETRON 4 MG/2 ML (SDV) Z0FRAN IVP ONE (22:45)
[2020-07-14] MEDS ORDERED: LACTATED RINGERS 1,000 ML IV ONE (22:45)
[2020-07-14] MEDS ORDERED: fentaNYL INJECTION 100 MCG/2 ML AMP IVP ONE (22:45)
[2020-07-14 22:58] LABS: BASOPHILS % (AUTO) 0 % (0-10); EOSINOPHILS # (AUTO) 0.4 10^3/uL (0.0-0.3); EOSINOPHILS % (AUTO) 4 % (0-10); HEMATOCRIT 34 % (35-52); HEMOGLOBIN 11.6 G/DL (11.5-16.0); LYMPHOCYTES # (AUTO) 3.9 X 10^3 (1.0-4.0); LYMPHOCYTES % (AUTO) 43 % (12-44); MEAN CORPUSCULAR HEMOGLOBIN 31 PG (25-34); MEAN CORPUSCULAR HGB CONC 34 G/DL (32-36); MEAN CORPUSCULAR VOLUME 91 FL (80-99); MEAN PLATELET VOLUME 9.8 FL (7.4-10.4); MONOCYTES # (AUTO) 0.9 X 10^3 (0.0-1.0); MONOCYTES % (AUTO) 10 % (0-12); NEUTROPHILS # (AUTO) 3.8 X 10^3 (1.8-7.8); NEUTROPHILS % (AUTO) 43 % (42-75); PLATELET COUNT 382 10^3/uL (130-400); RED CELL DISTRIBUTION WIDTH 12.7 % (10.0-14.5)
[2020-07-14 23:05] LABS: ALBUMIN 3.8 GM/DL (3.2-4.5); CHLORIDE 107 MMOL/L (98-107); POTASSIUM 3.8 MMOL/L (3.6-5.0); SODIUM 141 MMOL/L (135-145)
[2020-07-14 23:06] LABS: CALCIUM 9.2 MG/DL (8.5-10.1)
[2020-07-14 23:08] LABS: GLUCOSE 103 MG/DL (70-105); TOTAL PROTEIN 6.4 GM/DL (6.4-8.2)
[2020-07-14 23:09] LABS: BILIRUBIN,TOTAL 0.2 MG/DL (0.1-1.0); CARBON DIOXIDE 22 MMOL/L (21-32)
[2020-07-14 23:11] LABS: ALKALINE PHOSPHATASE 83 U/L (40-136); CREATININE SERUM 0.78 MG/DL (0.60-1.30); GFR ESTIMATED > 60
--- NOTE | 2020-07-14 23:11 | ED Abdominal Pain ---
General Chief Complaint: Abdominal/GI Problems Stated Complaint: LOWER BACK/VAGINAL PAIN Nursing Triage Note: Patient here with multiple complaints that include RUQ abdominal pain that radiates into her back; also reports she has a "boil" on her vagina that is very painful with urination and BM. Pt is very tearful during triage. Pt reports she has a hx of kidney stones and her s/s feel very similar. Pt reports n/v/d with onset of her s/s 2 days ago. Sepsis Screen: No Definite Risk Source of Information: Patient Exam Limitations: No Limitations History of Present Illness Date Seen by Provider: Jul 14, 2020 Time Seen by Provider: 22:40 Initial Comments Patient presents ER by private conveyance from home with chief complaint of 2 days of right flank back and abdominal pain radiating down to her right groin. She has dysuria but no hematuria. She has a history of kidney stones. She has not had her gallbladder or appendix out but she has had a mesh is related to hernia surgery, oophorectomy, hysterectomy, D&C. She's having nausea but no fever. Her objection to Toradol that it makes her shake and she has to take Benadryl to help with that. Allergies and Home Medications Allergies Coded Allergies: lorazepam (Unverified Allergy, Mild, "JITTERY", 04/09/20) dicyclomine (Unverified Allergy, Unknown, 04/09/20) ketorolac tromethamine (Unverified Allergy, Unknown, 04/09/20) prochlorperazine (Verified Allergy, Unknown, "JITTERY", 06/17/08) promethazine (Verified Allergy, Unknown, CONFUSED, AGITATED, 06/17/08) tramadol HCl (Verified Adverse Reaction, Mild, Anxiety, 04/26/13) Pt states she requires Benadryl to calm her down if she takes Ultram or Toradol. Does not have a true allergy to Ultram. Uncoded Allergies: iodine contrast (Adverse Reaction, Mild, 04/23/20) Patient Home Medication List Home Medication List Reviewed: Yes Review of Systems Review of Systems Constitutional: No chills, No fever, No malaise EENTM: No Blurred Vision, No Double Vision Respiratory: Denies Cough, Denies Shortness of Air Cardiovascular: Denies Chest Pain, Denies Lightheadedness Gastrointestinal: See HPI, Abdominal Pain; Denies Constipated; Diarrhea, Nausea, Poor Fluid Intake, Vomiting Genitourinary: Burning; Denies Discharge, Denies Drainage; Flank Pain Musculoskeletal: back pain; No gout, No joint pain All Other Systems Reviewed Negative Unless Noted: Yes Past Ptefaiz-Zysosq-Unrvlt Hx Patient Social History Alcohol Use: Occasionally Uses Recreational Drug Use: No Drug of Choice: hx of UDS+ FOR METH/AMPHETAMINES; OPIATE USE/ABUSE-OXYCODONE Smoking Status: Current Everyday Smoker Type Used: Cigarettes 2nd Hand Smoke Exposure: No Recent Foreign Travel: No Contact w/Someone Who Travel: No Recent Infectious Disease Expo: No Recent Hopitalizations: No Immunizations Up To Date Tetanus Booster (TDap): Less than 5yrs PED Vaccines UTD: Yes Date of Pneumonia Vaccine: Nov 04, 2013 Date of Influenza Vaccine: Jul 14, 2014 Seasonal Allergies Seasonal Allergies: No Past Medical History Surgeries: Yes (R OOPHORECTOMY; L BREAST CYST REMOVED;ALEKSANDR/BSO;D&C;EGD/COLONOSCOPIES;BLADDER) Bladder Surgery, Breast, Hysterectomy, Oophorectomy, 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 Respiratory: Yes Asthma, Chronic Bronchitis Cardiac: No Neurological: No Reproductive Disorders: Yes (HYST/BSO; RIGHT OOPORECTOMY FOR CYSTS) Female Reproductive Disorders: 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, 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 Cyst 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 Sexually Transmitted Disease: No HIV/AIDS: No Genitourinary: Yes (INCONTINENCE/CYSTOCOELE-S/P PUBO-VAGINAL SLING 2013) Bladder Infection, Kidney Stones, UTI-Chronic Gastrointestinal: Yes (GASTRIC EROSIONS, CHRONIC ABDOMINAL PAIN; QUESTIONABLE HISTORY OF HEP C) Gastroesophageal Reflux, Hemorrhoids, Hiatal Hernia, Ulcer, Gall Bladder Disease Musculoskeletal: Yes (RESTLESS LEG SYNDROME) Arthritis, Chronic Back Pain Endocrine: No HEENT: No Cancer: No Psychosocial: Yes Anxiety, Depression Integumentary: No Blood Disorders: No Family Medical History Abdominal aortic aneurysm 19 FATHER Cancer of mouth GRANDMOTHER Diabetes mellitus 19 MOTHER Thyroid disease 19 MOTHER Heart Disease CYSPSH: -EGD'S/COLONOSCOPIES--LAST ONE HERE 2013--GASTRIC EROSIONS, SMALL HIATAL HERNIA, GERD, HEMORRHOIDS -PUBO-VAGINAL SLING + CYSTOSCOPY 2013--DR. GARCIA -BT -D&C -ALEKSANDR/BSO -RIGHT OOPHORECTOMY FOR CYST -LEFT BREAST BIOPSY/CYST REMOVAL Physical Exam Vital Signs Vital Signs - First Documented 07/14/20 21:50 Temp 36.8 Pulse 97 Resp 20 B/P (MAP) 124/77 (93) Pulse Ox 97 O2 Delivery Room Air Capillary Refill : Less Than 3 Seconds Height/Weight/BMI Height: 5'2.00" Weight: 128lbs. 0oz. 58.035572yz; 25.00 BMI Method:Stated General Appearance: WD/WN, mild distress HEENT: PERRL/EOMI, pharynx normal Neck: full range of motion, supple, normal inspection Respiratory: lungs clear, normal breath sounds, no respiratory distress, no accessory muscle use Cardiovascular: normal peripheral pulses, regular rate, rhythm, no edema Peripheral Pulses: 2+ Dorsalis Pedis (R), 2+ Left Dors-Pedis (L) Gastrointestinal: normal bowel sounds, soft, no organomegaly, guarding; No rebound; tenderness (right flank) Extremities: normal range of motion, non-tender, normal capillary refill Back: normal inspection, CVA tenderness (R) Neurologic/Psychiatric: alert, normal mood/affect, oriented x 3 Skin: normal color, warm/dry Progress/Results/Core Measures Results/Orders Lab Results Laboratory Tests Test 07/14/20 22:10 07/14/20 22:49 Range/Units Urine Color YELLOW Urine Clarity CLOUDY Urine pH 6.0 5-9 Urine Specific [place] >=1.030 1.016-1.022 Urine Protein NEGATIVE NEGATIVE Urine Glucose (UA) NEGATIVE NEGATIVE Urine Ketones NEGATIVE NEGATIVE Urine Nitrite NEGATIVE NEGATIVE Urine Bilirubin NEGATIVE NEGATIVE Urine Urobilinogen 0.2 < = 1.0 MG/DL Urine Leukocyte Esterase NEGATIVE NEGATIVE Urine RBC (Auto) 2+ H NEGATIVE Urine RBC 10-25 H /HPF Urine WBC 2-5 /HPF Urine Squamous Epithelial Cells 10-25 H /HPF Urine Crystals PRESENT H /LPF Urine Calcium Oxalate Crystals FEW H /LPF Urine Bacteria FEW H /HPF Urine Casts NONE /LPF Urine Mucus SMALL H /LPF Urine Culture Indicated NO White Blood Count 9.0 4.3-11.0 10^3/uL Red Blood Count 3.77 L 4.35-5.85 10^6/uL Hemoglobin 11.6 11.5-16.0 G/DL Hematocrit 34 L 35-52 % Mean Corpuscular Volume 91 80-99 FL Mean Corpuscular Hemoglobin 31 25-34 PG Mean Corpuscular Hemoglobin Concent 34 32-36 G/DL Red Cell Distribution Width 12.7 10.0-14.5 % Platelet Count 382 130-400 10^3/uL Mean Platelet Volume 9.8 7.4-10.4 FL Neutrophils (%) (Auto) 43 42-75 % Lymphocytes (%) (Auto) 43 12-44 % Monocytes (%) (Auto) 10 0-12 % Eosinophils (%) (Auto) 4 0-10 % Basophils (%) (Auto) 0 0-10 % Neutrophils # (Auto) 3.8 1.8-7.8 X 10^3 Lymphocytes # (Auto) 3.9 1.0-4.0 X 10^3 Monocytes # (Auto) 0.9 0.0-1.0 X 10^3 Eosinophils # (Auto) 0.4 H 0.0-0.3 10^3/uL Basophils # (Auto) 0.0 0.0-0.1 10^3/uL Sodium Level 141 135-145 MMOL/L Potassium Level 3.8 3.6-5.0 MMOL/L Chloride Level 107 98-107 MMOL/L Carbon Dioxide Level 22 21-32 MMOL/L Anion Gap 12 5-14 MMOL/L Blood Urea Nitrogen 20 H 7-18 MG/DL Creatinine 0.78 0.60-1.30 MG/DL Estimat Glomerular Filtration Rate > 60 BUN/Creatinine Ratio 26 Glucose Level 103 70-105 MG/DL Calcium Level 9.2 8.5-10.1 MG/DL Corrected Calcium 9.4 8.5-10.1 MG/DL Total Bilirubin 0.2 0.1-1.0 MG/DL Aspartate Amino Transf (AST/SGOT) 20 5-34 U/L Alanine Aminotransferase (ALT/SGPT) 19 0-55 U/L Alkaline Phosphatase 83 40-136 U/L Total Protein 6.4 6.4-8.2 GM/DL Albumin 3.8 3.2-4.5 GM/DL Lipase 51 8-78 U/L My Orders Orders - OZZY HINES Ua Culture If Indicated (07/14/20 21:59) Ct Abd/Pelvis Wo(Kidney Stone) (07/14/20 22:45) Cbc With Automated Diff (07/14/20 22:45) Comprehensive Metabolic Panel (07/14/20 22:45) Lipase (07/14/20 22:45) Ondansetron Injection (Zofran Injectio (07/14/20 22:45) Fentanyl Injection (Sublimaze Injection (07/14/20 22:45) Ed Iv/Invasive Line Start (07/14/20 22:45) Lactated Ringers (Lr 1000 Ml Iv Solution (07/14/20 22:45) Hydrocodone/Apap 5/325 Tablet (Lortab 5 (07/14/20 23:30) Medications Given in ED Current Medications Medications Dose Ordered Sig/[place] Route Start Time Stop Time Status Last Admin Dose Admin Acetaminophen/ Hydrocodone Bitart 1 tab ONCE ONCE PO 07/14/20 23:30 07/14/20 23:31 DC 07/14/20 23:32 1 TAB Fentanyl Citrate 50 mcg ONCE ONCE IVP 07/14/20 22:45 07/14/20 22:47 DC 07/14/20 22:58 50 MCG Lactated Ringer's 1,000 ml @ 0 mls/hr Q0M ONCE IV 07/14/20 22:45 07/14/20 22:47 DC 07/14/20 23:00 1,000 MLS/HR Ondansetron HCl 8 mg ONCE ONCE IVP 07/14/20 22:45 07/14/20 22:47 DC 07/14/20 22:56 8 MG Vital Signs/I&O 07/14/20 21:50 Temp 36.8 Pulse 97 Resp 20 B/P (MAP) 124/77 (93) Pulse Ox 97 O2 Delivery Room Air Blood Pressure Mean: 93 Progress Progress Note : Time: 23:10 Progress Note She has blood in her urine and a kidney stone is most likely on her differential so a noncontrast CT is ordered. We will also get some labs including lipase in case this proves to be false. Fentanyl and Zofran as well as a liter of fluids for her symptoms. Diagnostic Imaging Diagonstic Imaging: CT (noncontrasted kidney stone study) Plain Films/CT/US/NM/MRI: abdomen, pelvis Reviewed: Reviewed [place] Study, Reviewed by Me Departure Impression Primary Impression: Kidney stones Disposition: HOME, SELF-CARE Condition: Stable Departure-Patient Inst. Decision time for Depature: 00:00 Referrals: NO,LOCAL PHYSICIAN (PCP) Primary Care Physician TEZ GARCIA MD Patient Instructions: Kidney Stones in Adults Add. Discharge Instructions: I suspect that you just recently passed a small kidney stone. Workup which on some antibiotics for the next 5 days to prevent bladder infection. You do not have a stone that attempting to pass at this time. If you want to follow-up with urology outpatient you may. Dr. Garcia's number is listed above. Drink lots of fluids and use Tylenol and ibuprofen as necessary for pain in addition to heating pads. If your pain persists for more than 2 days then you should follow-up with your primary care doctor as well. All discharge instructions reviewed with patient and/or family. Voiced understanding. Scripts Cephalexin (Cephalexin) 500 Mg Tablet 500 MG PO BID for 5 Days, #10 TAB 0 Refills Prov: OZZY HINES 07/15/20 Copy Copies To 1: TEZ GARCIA MD, TITUS J Jul 14, 2020 23:11
[2020-07-14 23:12] LABS: BUN/CREATININE RATIO 26
[2020-07-14 23:14] LABS: ALANINE AMINOTRANSFERASE 19 U/L (0-55)
[2020-07-14 23:15] LABS: LIPASE 51 U/L (8-78)
[2020-07-14] MEDS ORDERED: HYDROcodone/APAP 5 MG/325 MG (LORTAB) TAB PO ONE (23:30)
[2020-07-15] MEDS ORDERED: CEPH500T PO (00:02)
[2020-07-15] MEDS ORDERED: RX-ONDANSETRON 4 MG ODT (ZOFRAN) PPK #4 PO STA (00:09)
[2020-07-15] MEDS ORDERED: CEPHALEXIN 250 MG (KEFLEX) CAP PO ONE (00:15)
[2020-07-15 00:22] VITALS: BP 90/54
--- NOTE | 2020-07-15 06:17 | Diagnostic Imaging Report ---
PROCEDURE: CT urinary tract, rule out kidney stone. TECHNIQUE: Multiple contiguous axial images were obtained through the abdomen and pelvis without the use of intravenous contrast. Auto Exposure Controls were utilized during the CT exam to meet ALARA standards for radiation dose reduction. INDICATION: Flank pain. COMPARISON: 04/23/2020. FINDINGS: The heart is unremarkable. The included lung bases are clear. Bilateral nonobstructing renal calculi are present, measuring up to 4 mm in the superior pole of the left kidney. No obstructing calculi or hydronephrosis. No perinephric fat stranding is seen. The liver, spleen, pancreas, and adrenal glands have a normal noncontrast CT appearance. There is no pathologically enlarged mesenteric or retroperitoneal adenopathy. The bowel loops are nondilated. There is no free fluid or free air. Grade 2 anterolisthesis of L5 on S1 is noted with bilateral pars defects at L5. The urinary bladder is decompressed. There is no free air, loculated collection, or adenopathy in the pelvis. IMPRESSION: 1. Bilateral nonobstructing renal calculi. No obstructing calculi or hydronephrosis. 2. Grade 2 anterolisthesis of L5 on S1 with bilateral pars defects at L5. Agree with overnight report. Dictated by: Dictated on workstation # [id number]
== END 2020-07-15 00:19 | disposition home or self-care (01) ==
LOC: EDUNIT# 21:34 → ER 21:36
DX: N20.0 Calculus of kidney (principal); F17.210 Nicotine dependence, cigarettes, uncomplicated; Z88.6 Allergy status to analgesic agent; Z88.8 Allergy status to other drugs, medicaments and biological substances; Z91.041 Radiographic dye allergy status; Z80.8 Family history of malignant neoplasm of other organs or systems; Z82.49 Family history of ischemic heart disease and other diseases of the circulatory system
CPT/HCPCS: 36415; 74176; 80053; 81000; 83690; 85025

== ENCOUNTER 2020-09-04 20:40 | Emergency (ER) | payer MEDICAID ==
[~2020-09-04] VITALS: Ht 157.5 cm; Wt 65.8 kg
[~2020-09-04 20:40] MED LIST changes: +CEPH500T PO
--- NOTE | 2020-09-04 20:57 | ED Abdominal Pain ---
General Stated Complaint: ABDOMINAL PAIN/VOMITING Source of Information: Patient Exam Limitations: No Limitations History of Present Illness Date Seen by Provider: Sep 04, 2020 Time Seen by Provider: 20:55 Initial Comments To ER for further with right-sided upper abdominal pain, nausea, urinating blood and diarrhea since this morning. Timing/Duration: 1-2 Days Severity/Quality: Moderate Location: RUQ Radiation: No Radiation Activities at Onset: None Allergies and Home Medications Allergies Coded Allergies: lorazepam (Unverified Allergy, Mild, "JITTERY", 04/09/20) dicyclomine (Unverified Allergy, Unknown, 04/09/20) ketorolac tromethamine (Unverified Allergy, Unknown, 04/09/20) prochlorperazine (Verified Allergy, Unknown, "JITTERY", 06/17/08) promethazine (Verified Allergy, Unknown, CONFUSED, AGITATED, 06/17/08) tramadol HCl (Verified Adverse Reaction, Mild, Anxiety, 04/26/13) Pt states she requires Benadryl to calm her down if she takes Ultram or Toradol. Does not have a true allergy to Ultram. Uncoded Allergies: iodine contrast (Adverse Reaction, Mild, 04/23/20) Home Medications Cephalexin 500 Mg Tablet, 500 MG PO BID Prescribed by: OZZY HINES on 07/15/20 0002 Methocarbamol 750 Mg Tablet, 750 MG PO Q4H PRN for PAIN-MODERATE (5-7) Prescribed by: ANJELICA ANDERSEN on 09/04/20 2149 Patient Home Medication List Home Medication List Reviewed: Yes Review of Systems Review of Systems Constitutional: see HPI EENTM: No Symptoms Reported Respiratory: No Symptoms Reported Gastrointestinal: See HPI, Abdominal Pain Genitourinary: No Symptoms Reported Musculoskeletal: no symptoms reported Skin: no symptoms reported Psychiatric/Neurological: No Symptoms Reported Endocrine: No Symptoms Reported Past Xwrfabb-Onhmyc-Swnebl Hx Patient Social History Drug of Choice: hx of UDS+ FOR METH/AMPHETAMINES; OPIATE USE/ABUSE-OXYCODONE Type Used: Cigarettes 2nd Hand Smoke Exposure: No Recent Foreign Travel: No Contact w/Someone Who Travel: No Recent Hopitalizations: No Immunizations Up To Date Tetanus Booster (TDap): Less than 5yrs PED Vaccines UTD: Yes Date of Pneumonia Vaccine: Nov 04, 2013 Date of Influenza Vaccine: Jul 14, 2014 Seasonal Allergies Seasonal Allergies: No Past Medical History Surgeries: Yes (R OOPHORECTOMY; L BREAST CYST REMOVED;ALEKSANDR/BSO;D&C;EGD/COLONOSCOPIES;BLADDER) Bladder Surgery, Breast, Hysterectomy, Oophorectomy, 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 Respiratory: Yes Asthma, Chronic Bronchitis Cardiac: No Neurological: No Reproductive Disorders: Yes (HYST/BSO; RIGHT OOPORECTOMY FOR CYSTS) Female Reproductive Disorders: 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, 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 Sexually Transmitted Disease: No HIV/AIDS: No Genitourinary: Yes (INCONTINENCE/CYSTOCOELE-S/P PUBO-VAGINAL SLING 2013) Bladder Infection, Kidney Stones, UTI-Chronic Gastrointestinal: Yes (GASTRIC EROSIONS, CHRONIC ABDOMINAL PAIN; QUESTIONABLE HISTORY OF HEP C) Gastroesophageal Reflux, Hemorrhoids, Hiatal Hernia, Ulcer, Gall Bladder Disease Musculoskeletal: Yes (RESTLESS LEG SYNDROME) Arthritis, Chronic Back Pain Endocrine: No HEENT: No Cancer: No Psychosocial: Yes Anxiety, Depression Integumentary: No Blood Disorders: No Family Medical History Abdominal aortic aneurysm 19 FATHER Cancer of mouth GRANDMOTHER Diabetes mellitus 19 MOTHER Thyroid disease 19 MOTHER Heart Disease CYSPSH: -EGD'S/COLONOSCOPIES--LAST ONE HERE 2013--GASTRIC EROSIONS, SMALL HIATAL HERNIA, GERD, HEMORRHOIDS -PUBO-VAGINAL SLING + CYSTOSCOPY 2013--DR. GARCIA -BTL -D&C -ALEKSANDR/BSO -RIGHT OOPHORECTOMY FOR CYST -LEFT BREAST BIOPSY/CYST REMOVAL Physical Exam Vital Signs Vital Signs - First Documented 09/04/20 20:47 Temp 35.7 Pulse 85 Resp 18 B/P (MAP) 148/99 (115) Pulse Ox 100 O2 Delivery Room Air Capillary Refill : Height/Weight/BMI Height: 5'2.00" Weight: 128lbs. 0oz. 58.886788jn; 25.00 BMI Method:Stated General Appearance: WD/WN, no apparent distress Respiratory: no respiratory distress, no accessory muscle use Gastrointestinal: normal bowel sounds, soft, tenderness Extremities: normal range of motion, non-tender Neurologic/Psychiatric: alert, normal mood/affect, oriented x 3 Skin: normal color, warm/dry Progress/Results/Core Measures Results/Orders Lab Results Laboratory Tests Test 09/04/20 21:10 09/04/20 21:15 Range/Units White Blood Count 8.5 4.3-11.0 10^3/uL Red Blood Count 4.18 3.80-5.11 10^6/uL Hemoglobin 13.0 11.5-16.0 g/dL Hematocrit 39 35-52 % Mean Corpuscular Volume 92 80-99 fL Mean Corpuscular Hemoglobin 31 25-34 pg Mean Corpuscular Hemoglobin Concent 34 32-36 g/dL Red Cell Distribution Width 11.9 10.0-14.5 % Platelet Count 342 130-400 10^3/uL Mean Platelet Volume 9.7 9.0-12.2 fL Immature Granulocyte % (Auto) 0 % Neutrophils (%) (Auto) 43 42-75 % Lymphocytes (%) (Auto) 41 12-44 % Monocytes (%) (Auto) 10 0-12 % Eosinophils (%) (Auto) 5 0-10 % Basophils (%) (Auto) 1 0-10 % Neutrophils # (Auto) 3.7 1.8-7.8 10^3/uL Lymphocytes # (Auto) 3.5 1.0-4.0 10^3/uL Monocytes # (Auto) 0.9 0.0-1.0 10^3/uL Eosinophils # (Auto) 0.4 H 0.0-0.3 10^3/uL Basophils # (Auto) 0.1 0.0-0.1 10^3/uL Immature Granulocyte # (Auto) 0.0 0.0-0.1 10^3/uL Sodium Level 139 135-145 MMOL/L Potassium Level 3.5 L 3.6-5.0 MMOL/L Chloride Level 109 H 98-107 MMOL/L Carbon Dioxide Level 19 L 21-32 MMOL/L Anion Gap 11 5-14 MMOL/L Blood Urea Nitrogen 12 7-18 MG/DL Creatinine 0.71 0.60-1.30 MG/DL Estimat Glomerular Filtration Rate > 60 BUN/Creatinine Ratio 17 Glucose Level 86 70-105 MG/DL Calcium Level 9.0 8.5-10.1 MG/DL Corrected Calcium 9.1 8.5-10.1 MG/DL Total Bilirubin 0.3 0.1-1.0 MG/DL Aspartate Amino Transf (AST/SGOT) 17 5-34 U/L Alanine Aminotransferase (ALT/SGPT) 17 0-55 U/L Alkaline Phosphatase 79 40-136 U/L Total Protein 6.7 6.4-8.2 GM/DL Albumin 3.9 3.2-4.5 GM/DL Lipase 38 8-78 U/L Urine Color YELLOW Urine Clarity CLEAR Urine pH 6.0 5-9 Urine Specific [place] 1.020 1.016-1.022 Urine Protein NEGATIVE NEGATIVE Urine Glucose (UA) NEGATIVE NEGATIVE Urine Ketones NEGATIVE NEGATIVE Urine Nitrite NEGATIVE NEGATIVE Urine Bilirubin NEGATIVE NEGATIVE Urine Urobilinogen 0.2 < = 1.0 MG/DL Urine Leukocyte Esterase NEGATIVE NEGATIVE Urine RBC (Auto) TRACE-L NEGATIVE Urine RBC 2-5 H /HPF Urine WBC 2-5 /HPF Urine Squamous Epithelial Cells 0-2 /HPF Urine Crystals PRESENT H /LPF Urine Calcium Oxalate Crystals FEW H /LPF Urine Bacteria MODERATE H /HPF Urine Casts NONE /LPF Urine Mucus NEGATIVE /LPF Urine Yeast MODERATE H /HPF Urine Culture Indicated YES Urine Opiates Screen NEGATIVE NEGATIVE Urine Oxycodone Screen NEGATIVE NEGATIVE Urine Methadone Screen NEGATIVE NEGATIVE Urine Propoxyphene Screen NEGATIVE NEGATIVE Urine Barbiturates Screen NEGATIVE NEGATIVE Ur Tricyclic Antidepressants Screen NEGATIVE NEGATIVE Urine Phencyclidine Screen NEGATIVE NEGATIVE Urine Amphetamines Screen NEGATIVE NEGATIVE Urine Methamphetamines Screen NEGATIVE NEGATIVE Urine Benzodiazepines Screen NEGATIVE NEGATIVE Urine Cocaine Screen NEGATIVE NEGATIVE Urine Cannabinoids Screen NEGATIVE NEGATIVE Micro Results Microbiology 09/04/20 Urine Culture - Final, Complete Enterococcus faecalis My Orders Orders - ANJELICA ANDERSEN SECURITY COMPLIANCE ENGINEER Cbc With Automated Diff (09/04/20 20:51) Comprehensive Metabolic Panel (09/04/20 20:51) Lipase (09/04/20 20:51) Ua Culture If Indicated (09/04/20 20:51) Ed Iv/Invasive Line Start (09/04/20 20:51) Diphenhydramine Injection (Benadryl Inje (09/04/20 21:00) Ondansetron Injection (Zofran Injectio (09/04/20 21:00) Drug Screen Stat (Urine) (09/04/20 20:52) Ct Abd/Pelvis Wo(Kidney Stone) (09/04/20 20:52) Ketorolac Injection (Toradol Injection) (09/04/20 21:00) Ns Iv 1000 Ml (Sodium Chloride 0.9%) (09/04/20 21:00) Urine Culture (09/04/20 21:15) Fluconazole Tablet (Ed Only) (Diflucan T (09/04/20 21:45) Orphenadrine Inj (Ed Only) (Norflex Inje (09/04/20 22:00) Medications Given in ED Vital Signs/I&O 09/04/20 09/04/20 20:47 22:06 Temp 35.7 36.0 Pulse 85 72 Resp 18 19 B/P (MAP) 148/99 (115) 119/91 (115) Pulse Ox 100 99 O2 Delivery Room Air Room Air Diagnostic Imaging Diagonstic Imaging: Xray Comments NAME: GUERA VALDOVINOS MED REC#: [id number] PT STATUS: REG ER : 1970 PHYSICIAN: ANJELICA ANDERSEN APRN ADMIT DATE: 09/04/20/ER Draft Date of Exam:09/04/20 CT ABD/PELVIS WO(KIDNEY STONE) PROCEDURE: CT urinary tract, rule out kidney stone. TECHNIQUE: Multiple contiguous axial images were obtained through the abdomen and pelvis without the use of intravenous contrast. Auto Exposure Controls were utilized during the CT exam to meet ALARA standards for radiation dose reduction. INDICATION: Right flank pain. Urgency to urinate. Dysuria. COMPARISON: CT abdomen and pelvis without contrast 07/14/2020. FINDINGS: Lung bases are clear. The liver, gallbladder, pancreas, spleen and adrenals are negative on this noncontrast exam. Appendectomy. Punctate 0.2 cm nonobstructing renal stone in the right kidney. 0.4 cm nonobstructing renal stone in the superior pole of the left kidney. No ureteral stone or hydronephrosis. The bladder is decompressed. Hysterectomy. No free intraperitoneal air or fluid. No lymphadenopathy. No evidence of bowel obstruction. Bilateral L5 pars defects with grade 1 anterolisthesis of L5 on S1 where there are also advanced degenerative endplate changes. No acute osseous finding. IMPRESSION: 1. No acute CT findings in the abdomen or pelvis on this noncontrast exam. 2. Small bilateral nonobstructing renal stones in each kidney. No hydronephrosis or ureteral stones. Dictated on workstation # [id number] Dict: 09/04/202127 Trans: 09/04/202136 [facility] [id number] Interpreted by: DEANNE MI MD Electronically signed by: Departure Communication (Admissions) States that she can take Toradol if Benadryl is given with it. Impression Primary Impression: Right flank pain Disposition: HOME, SELF-CARE Condition: Stable Departure-Patient Inst. Decision time for Depature: 21:48 Referrals: NO,LOCAL PHYSICIAN (PCP/Family) Primary Care Physician Patient Instructions: Flank Pain (DC) Add. Discharge Instructions: 1. Return to ER for any concerns 2. Fill the prescription and take as directed. Follow-up with her doctor next week. Scripts Methocarbamol (Robaxin-750) 750 Mg Tablet 750 MG PO Q4H PRN for PAIN-MODERATE (5-7), #20 TAB Prov: ANJELICA ANDERSEN APRN 09/04/20 ANJELICA ANDERSEN APRN Sep 04, 2020 20:57
[2020-09-04] MEDS ORDERED: diphenhydrAMINE 50 MG/ML INJ (BENADRYL) IVP ONE (21:00)
[2020-09-04] MEDS ORDERED: ONDANSETRON 4 MG/2 ML (SDV) Z0FRAN IVP ONE (21:00)
[2020-09-04] MEDS ORDERED: NS IV 1000 ML 1,000 ML IV SCH (21:00)
[2020-09-04] MEDS ORDERED: KETOROLAC 30 MG/ML VIAL IVP ONE (21:00)
[2020-09-04 21:21] LABS: BILIRUBIN,URINE NEGATIVE (NEGATIVE); CLARITY,URINE CLEAR; COLOR,URINE YELLOW; GLUCOSE, URINE (UA) NEGATIVE (NEGATIVE); KETONES,URINE NEGATIVE (NEGATIVE); LEUKOCYTE ESTERASE ,URINE NEGATIVE (NEGATIVE); NITRITE,URINE NEGATIVE (NEGATIVE); PROTEIN,URINE NEGATIVE (NEGATIVE)
[2020-09-04 21:37] LABS: ALANINE AMINOTRANSFERASE 17 U/L (0-55); ALBUMIN 3.9 GM/DL (3.2-4.5); ALKALINE PHOSPHATASE 79 U/L (40-136); BASOPHILS # (AUTO) 0.1 10^3/uL (0.0-0.1); BASOPHILS % (AUTO) 1 % (0-10); BILIRUBIN,TOTAL 0.3 MG/DL (0.1-1.0); BUN/CREATININE RATIO 17; CARBON DIOXIDE 19 MMOL/L (21-32); CHLORIDE 109 MMOL/L (98-107); CREATININE SERUM 0.71 MG/DL (0.60-1.30); EOSINOPHILS # (AUTO) 0.4 10^3/uL (0.0-0.3); EOSINOPHILS % (AUTO) 5 % (0-10); GFR ESTIMATED > 60; GLUCOSE 86 MG/DL (70-105); HEMATOCRIT 39 % (35-52); LIPASE 38 U/L (8-78); LYMPHOCYTES # (AUTO) 3.5 10^3/uL (1.0-4.0); LYMPHOCYTES % (AUTO) 41 % (12-44); MEAN CORPUSCULAR HEMOGLOBIN 31 pg (25-34); MEAN CORPUSCULAR HGB CONC 34 g/dL (32-36); MEAN CORPUSCULAR VOLUME 92 fL (80-99); MEAN PLATELET VOLUME 9.7 fL (9.0-12.2); MONOCYTES # (AUTO) 0.9 10^3/uL (0.0-1.0); MONOCYTES % (AUTO) 10 % (0-12); NEUTROPHILS # (AUTO) 3.7 10^3/uL (1.8-7.8); NEUTROPHILS % (AUTO) 43 % (42-75); PLATELET COUNT 342 10^3/uL (130-400); POTASSIUM 3.5 MMOL/L (3.6-5.0); SODIUM 139 MMOL/L (135-145); TOTAL PROTEIN 6.7 GM/DL (6.4-8.2); WHITE BLOOD COUNT 8.5 10^3/uL (4.3-11.0)
--- NOTE | 2020-09-04 21:38 | Diagnostic Imaging Report ---
PROCEDURE: CT urinary tract, rule out kidney stone. TECHNIQUE: Multiple contiguous axial images were obtained through the abdomen and pelvis without the use of intravenous contrast. Auto Exposure Controls were utilized during the CT exam to meet ALARA standards for radiation dose reduction. INDICATION: Right flank pain. Urgency to urinate. Dysuria. COMPARISON: CT abdomen and pelvis without contrast 07/14/2020. FINDINGS: Lung bases are clear. The liver, gallbladder, pancreas, spleen and adrenals are negative on this noncontrast exam. Appendectomy. Punctate 0.2 cm nonobstructing renal stone in the right kidney. 0.4 cm nonobstructing renal stone in the superior pole of the left kidney. No ureteral stone or hydronephrosis. The bladder is decompressed. Hysterectomy. No free intraperitoneal air or fluid. No lymphadenopathy. No evidence of bowel obstruction. Bilateral L5 pars defects with grade 1 anterolisthesis of L5 on S1 where there are also advanced degenerative endplate changes. No acute osseous finding. IMPRESSION: 1. No acute CT findings in the abdomen or pelvis on this noncontrast exam. 2. Small bilateral nonobstructing renal stones in each kidney. No hydronephrosis or ureteral stones. Dictated by: Dictated on workstation # [id number]
[2020-09-04 21:43] LABS: BACTERIA,URINE MODERATE /HPF; CALCIUM OXALATE CRYSTALS,UR FEW /LPF; SQUAMOUS EPITHELIAL CELL,UR 0-2 /HPF
[2020-09-04 21:44] LABS: YEAST,URINE MODERATE /HPF
[2020-09-04] MEDS ORDERED: FLUCONAZOLE 150 MG TABLET (ED ONLY) PO ONE (21:45)
[2020-09-04] MEDS ORDERED: METH-313 PO (21:49)
[2020-09-04] MEDS ORDERED: ORPHENADRINE 60 MG/2 ML (NORFLEX) AMP (ED ONLY) IV ONE (22:00)
[2020-09-04 22:06] VITALS: BP 119/91
[2020-09-04 22:15] LABS: AMPHETAMINE SCREEN, URINE NEGATIVE (NEGATIVE); BARBITURATE SCREEN URINE NEGATIVE (NEGATIVE); BENZODIAZEPINES SCREEN URINE NEGATIVE (NEGATIVE); CANNABINOID SCREEN, URINE NEGATIVE (NEGATIVE); COCAINE SCREEN URINE NEGATIVE (NEGATIVE); METHADONE STAT NEGATIVE (NEGATIVE); METHAMPHETAMINE SCREEN URINE S NEGATIVE (NEGATIVE); OPIATE SCREEN URINE NEGATIVE (NEGATIVE); OXYCODONE STAT NEGATIVE (NEGATIVE); PROPOXYPHENE STAT NEGATIVE (NEGATIVE); TRICYCLIC ANTIDEPRESSANTS SCRE NEGATIVE (NEGATIVE)
== END 2020-09-04 22:06 | disposition home or self-care (01) ==
LOC: EDUNIT# 20:40 → ER 20:42
DX: R10.11 Right upper quadrant pain (principal); Z83.3 Family history of diabetes mellitus; Z80.8 Family history of malignant neoplasm of other organs or systems; Z82.49 Family history of ischemic heart disease and other diseases of the circulatory system; Z91.041 Radiographic dye allergy status; Z88.5 Allergy status to narcotic agent; Z88.1 Allergy status to other antibiotic agents; Z88.8 Allergy status to other drugs, medicaments and biological substances
CPT/HCPCS: 36415; 74176; 80053; 80306; 81000; 83690; 85025; 87077; 87088; 87186

== ENCOUNTER 2021-01-06 19:40 | Emergency (ER) | payer MEDICAID ==
[~2021-01-06] VITALS: Ht 157.4 cm; Wt 68.0 kg
[~2021-01-06 19:40] MED LIST changes: +METH-313 PO; -OXYC-471 PO; +OXYC1TAB11 PO
[2021-01-06] MEDS ORDERED: LORazepam INJ 2 MG/ML (ATIVAN) VIAL ONE (19:50)
[2021-01-06] MEDS ORDERED: LORazepam INJ 2 MG/ML (ATIVAN) VIAL IVP ONE ×2 (20:00→20:15)
[2021-01-06] MEDS ORDERED: LACTATED RINGERS 1,000 ML IV ONE (20:15)
[2021-01-06 20:17] LABS: BASOPHILS % (AUTO) 0 % (0-10); EOSINOPHILS # (AUTO) 0.3 10^3/uL (0.0-0.3); EOSINOPHILS % (AUTO) 3 % (0-10); HEMATOCRIT 43 % (35-52); HEMOGLOBIN 14.2 g/dL (11.5-16.0); LYMPHOCYTES # (AUTO) 4.6 10^3/uL (1.0-4.0); LYMPHOCYTES % (AUTO) 38 % (12-44); MEAN CORPUSCULAR HEMOGLOBIN 30 pg (25-34); MEAN CORPUSCULAR HGB CONC 33 g/dL (32-36); MEAN CORPUSCULAR VOLUME 92 fL (80-99); MEAN PLATELET VOLUME 10.1 fL (9.0-12.2); MONOCYTES # (AUTO) 0.9 10^3/uL (0.0-1.0); MONOCYTES % (AUTO) 7 % (0-12); NEUTROPHILS # (AUTO) 6.2 10^3/uL (1.8-7.8); NEUTROPHILS % (AUTO) 51 % (42-75); PLATELET COUNT 415 10^3/uL (130-400)
[2021-01-06] MEDS ORDERED: diphenhydrAMINE 50 MG/ML INJ (BENADRYL) IVP ONE (20:30)
[2021-01-06 20:32] LABS: BILIRUBIN,URINE NEGATIVE (NEGATIVE); CLARITY,URINE CLEAR; COLOR,URINE DARK YELLOW; GLUCOSE, URINE (UA) NEGATIVE (NEGATIVE); KETONES,URINE NEGATIVE (NEGATIVE); LEUKOCYTE ESTERASE ,URINE NEGATIVE (NEGATIVE); NITRITE,URINE NEGATIVE (NEGATIVE); PROTEIN,URINE NEGATIVE (NEGATIVE)
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
[2021-01-06 20:44] LABS: BACTERIA,URINE NEGATIVE /HPF
[2021-01-06 20:45] LABS: ALANINE AMINOTRANSFERASE 13 U/L (0-55); ALBUMIN 4.7 GM/DL (3.2-4.5); ALKALINE PHOSPHATASE 98 U/L (40-136); BILIRUBIN,TOTAL 0.2 MG/DL (0.1-1.0); BUN/CREATININE RATIO 19; CALCIUM 9.9 MG/DL (8.5-10.1); CARBON DIOXIDE 21 MMOL/L (21-32); CHLORIDE 110 MMOL/L (98-107); CREATINE KINASE 137 U/L (29-168); CREATININE SERUM 0.83 MG/DL (0.60-1.30); GFR ESTIMATED > 60; GLUCOSE 92 MG/DL (70-105); MAGNESIUM 1.7 MG/DL (1.6-2.4); POTASSIUM 3.7 MMOL/L (3.6-5.0); SODIUM 143 MMOL/L (135-145); TOTAL PROTEIN 8.2 GM/DL (6.4-8.2)
[2021-01-06 20:49] LABS: AMPHETAMINE SCREEN, URINE NEGATIVE (NEGATIVE); BARBITURATE SCREEN URINE NEGATIVE (NEGATIVE); BENZODIAZEPINES SCREEN URINE NEGATIVE (NEGATIVE); CANNABINOID SCREEN, URINE NEGATIVE (NEGATIVE); COCAINE SCREEN URINE NEGATIVE (NEGATIVE); METHADONE STAT NEGATIVE (NEGATIVE); METHAMPHETAMINE SCREEN URINE S NEGATIVE (NEGATIVE); OPIATE SCREEN URINE NEGATIVE (NEGATIVE); OXYCODONE STAT NEGATIVE (NEGATIVE); PROPOXYPHENE STAT NEGATIVE (NEGATIVE); TRICYCLIC ANTIDEPRESSANTS SCRE NEGATIVE (NEGATIVE)
[2021-01-06] MEDS ORDERED: oxyCODONE/APAP 5/325MG (PERCOCET 5) TABLET PO ONE (21:00)
[2021-01-06] MEDS ORDERED: LORazepam 0.5 MG (ATIVAN) TABLET PO ONE (21:00)
[2021-01-06] MEDS ORDERED: ALPR.25T PO (21:05)
[2021-01-06 21:33] VITALS: BP 122/75
== END 2021-01-06 21:33 | disposition home or self-care (01) ==
LOC: EDUNIT# 19:40 → ER 19:41
DX: F41.9 Anxiety disorder, unspecified (principal); Z88.5 Allergy status to narcotic agent; Z91.041 Radiographic dye allergy status; Z88.6 Allergy status to analgesic agent; Z88.8 Allergy status to other drugs, medicaments and biological substances; Z80.8 Family history of malignant neoplasm of other organs or systems; Z82.49 Family history of ischemic heart disease and other diseases of the circulatory system; Z83.3 Family history of diabetes mellitus
CPT/HCPCS: 80053; 80306; 81000; 82550; 83735; 85025; 99284; G0480; 36415; 80320

== ENCOUNTER 2021-03-05 18:22 | Emergency (ER) | payer MEDICAID ==
[~2021-03-05] VITALS: Ht 157.5 cm; Wt 63.5 kg
[~2021-03-05 18:22] MED LIST changes: +ALPR.25T PO; -AMIT10TA6 PO; +AMT10T PO
--- NOTE | 2021-03-05 18:53 | ED General ---
General Chief Complaint: General Problems/Pain Stated Complaint: NUMBNESS IN LEGS;UNABLE TO SIT STILL Nursing Triage Note: PT AMB TO TRIAGE WITH COMPLAINT OF RESTLESSNESS. STATES THIS HAPPENED AFTER SHE TOOK TYLENOL AND IBUPROFEN TOGETHER FOR HER NECK PAIN. STATES SYMPTOMS HAVE HAPPENED BEFORE AFTER ALSO TAKING TYLENOL AND IBUPROFEN. Nursing Sepsis Screen: No Definite Risk Source of Information: Patient Exam Limitations: No Limitations History of Present Illness Date Seen by Provider: Mar 05, 2021 Time Seen by Provider: 18:33 Initial Comments to ER with reports of restlessness. She is tearful and states that her hands are spasming. Timing/Duration: 1-2 Days Severity: Moderate Associated Systoms: Denies Symptoms Allergies and Home Medications Allergies Coded Allergies: lorazepam (Unverified Allergy, Mild, "JITTERY", 04/09/20) dicyclomine (Unverified Allergy, Unknown, 04/09/20) ketorolac tromethamine (Unverified Allergy, Unknown, 04/09/20) prochlorperazine (Verified Allergy, Unknown, "JITTERY", 06/17/08) promethazine (Verified Allergy, Unknown, CONFUSED, AGITATED, 06/17/08) tramadol HCl (Verified Adverse Reaction, Mild, Anxiety, 04/26/13) Pt states she requires Benadryl to calm her down if she takes Ultram or Toradol. Does not have a true allergy to Ultram. Uncoded Allergies: iodine contrast (Adverse Reaction, Mild, 04/23/20) Home Medications ALPRAZolam 0.25 Mg Tab, 0.25 MG PO TID PRN for ANXIETY Prescribed by: CEZAR ELLINGTON on 01/06/212104 Cephalexin 500 Mg Tablet, 500 MG PO BID Prescribed by: OZZY HINES on 07/15/20 0002 Methocarbamol 750 Mg Tablet, 750 MG PO Q4H PRN for PAIN-MODERATE (5-7) Prescribed by: ANJELICA ANDERSEN on 09/04/202148 Nitrofurantoin Monohyd/M-Cryst 100 Mg Capsule, 1 TAB PO Q6H, (Reported) Patient Home Medication List Home Medication List Reviewed: Yes Review of Systems Review of Systems Constitutional: see HPI EENTM: see HPI Respiratory: no symptoms reported Cardiovascular: no symptoms reported Genitourinary: no symptoms reported Musculoskeletal: no symptoms reported Skin: no symptoms reported Psychiatric/Neurological: See HPI, Anxiety Hematologic/Lymphatic: No Symptoms Reported Past Dfftrmz-Zfdrzi-Ibhiqn Hx Patient Social History Alcohol Use: Denies Use Drug of Choice: hx of UDS+ FOR METH/AMPHETAMINES; OPIATE USE/ABUSE-OXYCODONE Smoking Status: Current Everyday Smoker Type Used: Cigarettes 2nd Hand Smoke Exposure: No Recent Infectious Disease Expo: No Recent Hopitalizations: No Immunizations Up To Date Tetanus Booster (TDap): Less than 5yrs PED Vaccines UTD: Yes Date of Pneumonia Vaccine: Nov 04, 2013 Date of Influenza Vaccine: Jul 14, 2014 Seasonal Allergies Seasonal Allergies: No Past Medical History Surgeries: Yes Bladder Surgery, Hysterectomy, Oophorectomy Respiratory: No Asthma, Chronic Bronchitis Cardiac: No Neurological: Yes (Restless leg syndrome) Reproductive Disorders: No Female Reproductive Disorders: 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, Ovarian Cyst [employer] History: Hysterectomy Sexually Transmitted Disease: No HIV/AIDS: No Genitourinary: No Bladder Infection, Kidney Stones, UTI-Chronic Gastrointestinal: Yes (gastric erosions) Hepatitis Musculoskeletal: No Arthritis, Chronic Back Pain Endocrine: No HEENT: No Cancer: No Psychosocial: Yes Anxiety Integumentary: No Blood Disorders: No Family Medical History Abdominal aortic aneurysm 19 FATHER Cancer of mouth GRANDMOTHER Diabetes mellitus 19 MOTHER Thyroid disease 19 MOTHER Heart Disease CYSPSH: -EGD'S/COLONOSCOPIES--LAST ONE HERE 2013--GASTRIC EROSIONS, SMALL HIATAL HERNIA, GERD, HEMORRHOIDS -PUBO-VAGINAL SLING + CYSTOSCOPY 2013--DR. GARCIA -BTL -D&C -ALEKSANDR/BSO -RIGHT OOPHORECTOMY FOR CYST -LEFT BREAST BIOPSY/CYST REMOVAL Physical Exam Vital Signs Vital Signs - First Documented 03/05/21 18:38 Temp 36.8 Pulse 99 Resp 17 B/P (MAP) 191/109 (136) Pulse Ox 96 O2 Delivery Room Air Capillary Refill : Less Than 3 Seconds Height, Weight, BMI Height: 5'2.00" Weight: 128lbs. 0oz. 58.479603np; 25.00 BMI Method:Stated General Appearance: Anxious, Other (Tearful, speaks in full sentences, states she is unable to sit still.) Respiratory: No Accessory Muscle Use, No Respiratory Distress Cardiovascular: Regular Rate, Rhythm, Normal Peripheral Pulses Gastrointestinal: Normal Bowel Sounds, Non Tender, Soft Extremity: Normal Capillary Refill, Normal Inspection Neurologic/Psychiatric: Alert, Oriented x3 Skin: Normal Color, Warm/Dry Progress/Results/Core Measures Suspected Sepsis Recent Fever Within 48 Hours: No Infection Criteria Present: None New/Unexplained Altered Menta: No Sepsis Screen: No Definite Risk SIRS Temperature: Pulse: 99 Respiratory Rate: 17 Blood Pressure 191 /109 Mean: 136 Results/Orders Lab Results Laboratory Tests Test 03/05/21 20:01 Range/Units Urine Color YELLOW Urine Clarity CLEAR Urine pH 6.0 5-9 Urine Specific [place] >=1.030 1.016-1.022 Urine Protein NEGATIVE NEGATIVE Urine Glucose (UA) NEGATIVE NEGATIVE Urine Ketones NEGATIVE NEGATIVE Urine Nitrite NEGATIVE NEGATIVE Urine Bilirubin NEGATIVE NEGATIVE Urine Urobilinogen 0.2 < = 1.0 MG/DL Urine Leukocyte Esterase NEGATIVE NEGATIVE Urine RBC (Auto) NEGATIVE NEGATIVE Urine RBC NONE /HPF Urine WBC NONE /HPF Urine Squamous Epithelial Cells 0-2 /HPF Urine Crystals NONE /LPF Urine Bacteria TRACE /HPF Urine Casts NONE /LPF Urine Mucus SMALL H /LPF Urine Culture Indicated NO Urine Opiates Screen POSITIVE H NEGATIVE Urine Oxycodone Screen NEGATIVE NEGATIVE Urine Methadone Screen NEGATIVE NEGATIVE Urine Propoxyphene Screen NEGATIVE NEGATIVE Urine Barbiturates Screen NEGATIVE NEGATIVE Ur Tricyclic Antidepressants Screen NEGATIVE NEGATIVE Urine Phencyclidine Screen NEGATIVE NEGATIVE Urine Amphetamines Screen NEGATIVE NEGATIVE Urine Methamphetamines Screen NEGATIVE NEGATIVE Urine Benzodiazepines Screen NEGATIVE NEGATIVE Urine Cocaine Screen NEGATIVE NEGATIVE Urine Cannabinoids Screen NEGATIVE NEGATIVE My Orders Orders - ANJELICA ANDERSEN APRN Hydroxyzine Cap/Tab (Vistaril) (03/05/21 19:00) Ct Head Wo (03/05/21 19:36) Ibuprofen Tablet (Motrin Tablet) (03/05/21 19:45) Alprazolam Tablet (Xanax Tablet) (03/05/21 20:00) Ua Culture If Indicated (03/05/21 19:59) Drug Screen Stat (Urine) (03/05/21 19:59) Medications Given in ED Current Medications Medications Dose Ordered Sig/Louis Route Start Time Stop Time Status Last Admin Dose Admin Hydroxyzine Pamoate 50 mg ONCE ONCE PO 03/05/21 19:00 03/05/21 19:01 DC 03/05/21 18:56 50 MG Ibuprofen 800 mg ONCE ONCE PO 03/05/21 19:45 03/05/21 19:46 DC 03/05/21 20:10 800 MG Vital Signs/I&O 03/05/21 18:38 Temp 36.8 Pulse 99 Resp 17 B/P (MAP) 191/109 (136) Pulse Ox 96 O2 Delivery Room Air Capillary Refill : Less Than 3 Seconds Blood Pressure Mean: 136 Departure Impression Primary Impression: Anxiety attack Disposition: HOME, SELF-CARE Condition: Stable Departure-Patient Inst. Decision time for Depature: 20:30 Referrals: NO,LOCAL PHYSICIAN (PCP/Family) Primary Care Physician Patient Instructions: Anxiety, Adult (DC) Add. Discharge Instructions: All discharge instructions reviewed with patient and/or family. Voiced und erstanding. ANJELICA ANDERSEN [employer] Mar 05, 2021 18:53
[2021-03-05] MEDS ORDERED: hydrOXYzine (VISTARIL/ATARAX) 25 MG capsule/tablet PO ONE (19:00)
[2021-03-05] MEDS ORDERED: IBUPROFEN 800 MG (MOTRIN) TAB PO ONE (19:45)
[2021-03-05] MEDS ORDERED: ALPRAZolam 0.5 MG (XANAX) TAB PO SCH (20:00)
[2021-03-05 20:14] LABS: BILIRUBIN,URINE NEGATIVE (NEGATIVE); CLARITY,URINE CLEAR; COLOR,URINE YELLOW; GLUCOSE, URINE (UA) NEGATIVE (NEGATIVE); KETONES,URINE NEGATIVE (NEGATIVE); LEUKOCYTE ESTERASE ,URINE NEGATIVE (NEGATIVE); NITRITE,URINE NEGATIVE (NEGATIVE); PROTEIN,URINE NEGATIVE (NEGATIVE)
--- NOTE | 2021-03-05 20:14 | Diagnostic Imaging Report ---
PROCEDURE: CT head without contrast. TECHNIQUE: Multiple contiguous axial images were obtained through the brain without the use of intravenous contrast. Auto Exposure Controls were utilized during the CT exam to meet ALARA standards for radiation dose reduction. INDICATION: Restlessness. COMPARISON: 12/22/2018. FINDINGS: Exam is stable and normal. There is no hemorrhage, hydrocephalus, edema, mass, mass effect or evidence for an elevation of the intracranial pressures. The basilar cisterns are patent and there is no sulcal effacement. The orbits, sinuses and calvarium are within normal limits. IMPRESSION: Stable unremarkable CT head. Dictated by: Dictated on workstation # [id number]
[2021-03-05 20:27] LABS: BACTERIA,URINE TRACE /HPF; SQUAMOUS EPITHELIAL CELL,UR 0-2 /HPF
[2021-03-05 20:28] LABS: AMPHETAMINE SCREEN, URINE NEGATIVE (NEGATIVE); BARBITURATE SCREEN URINE NEGATIVE (NEGATIVE); BENZODIAZEPINES SCREEN URINE NEGATIVE (NEGATIVE); CANNABINOID SCREEN, URINE NEGATIVE (NEGATIVE); COCAINE SCREEN URINE NEGATIVE (NEGATIVE); METHADONE STAT NEGATIVE (NEGATIVE); METHAMPHETAMINE SCREEN URINE S NEGATIVE (NEGATIVE); OPIATE SCREEN URINE POSITIVE (NEGATIVE); OXYCODONE STAT NEGATIVE (NEGATIVE); PROPOXYPHENE STAT NEGATIVE (NEGATIVE); TRICYCLIC ANTIDEPRESSANTS SCRE NEGATIVE (NEGATIVE)
[2021-03-05 20:35] VITALS: BP 164/92
== END 2021-03-05 20:35 | disposition home or self-care (01) ==
LOC: EDUNIT# 18:22 → ER 18:24
DX: F41.9 Anxiety disorder, unspecified (principal); J45.909 Unspecified asthma, uncomplicated; F17.210 Nicotine dependence, cigarettes, uncomplicated; Z88.6 Allergy status to analgesic agent; Z88.5 Allergy status to narcotic agent; Z91.041 Radiographic dye allergy status; Z88.8 Allergy status to other drugs, medicaments and biological substances
CPT/HCPCS: 70450; 80306; 81000

== ENCOUNTER 2021-05-12 20:25 | Emergency (ER) | payer MEDICAID ==
[~2021-05-12] VITALS: Ht 157.5 cm; Wt 63.5 kg
[2021-05-12] MEDS ORDERED: ALPRAZolam 1 MG (XANAX) TAB PO ONE (21:15)
--- NOTE | 2021-05-12 21:19 | ED General ---
General Chief Complaint: General Problems/Pain Stated Complaint: PAIN IN L FOOT, ANXIETY Nursing Triage Note: PT ARRIVED BY PRIVATE VEHICLE WITH CHIEF COMPLAINT OF FOOT PAIN AND ANXIETY. PT WAS ALERT, ORIENTED X 4 AND AMBULATORY. PT AMBULATED TO ROOM 8 WHERE VITALS WERE DONE. PT STATED AFTER EATING CORN, HER LEFT FOOT STARTED TO HURT. PT STATED HER FOOT HAS PLATES IN IT. PT STATED SHE WAS ALSO HAVING AN ANXIETY ATTACK. PT WAS VERY JERKY AND ACTING ANXIOUS. REPORT WAS GIVEN TO PROVIDER AND INFORMED ABOUT PULSE BEING 125. Source of Information: Patient Exam Limitations: No Limitations History of Present Illness Date Seen by Provider: May 12, 2021 Time Seen by Provider: 21:10 Initial Comments Patient is a 50-year-old female who presents to the emergency department today with a chief complaint of left foot pain and having an anxiety attack. Patient states that she has chronic pain in her left foot secondary to breaking it about a year ago and having surgery. Patient states that her panic attack has been going on for the last hour or so after an argument with her boyfriend. Patient states that she takes Cymbalta. She states it was prescribed by a provider here at this emergency department. She does not have any long-term follow-up with her anxiety or depression issues because she states that "[facility] will not see me". She states she has been seen there twice but that they refused to see her afterwards. Patient does not have a primary care physician otherwise. She denies any thoughts of self-harm. She states that she is short of breath and that her chest hurts. The patient is very jerky in the bed and flexing her fingers of both hands and it appears like she is having muscle spasms. She is tearful. No other complaints of illness or injury. All other review of systems reviewed and negative except as stated above. Timing/Duration: 1-3 Hours Severity: Severe Associated Systoms: Chest Pain, Shortness of Air Allergies and Home Medications Allergies Coded Allergies: lorazepam (Unverified Allergy, Mild, "JITTERY", 04/09/20) dicyclomine (Unverified Allergy, Unknown, 04/09/20) ketorolac tromethamine (Unverified Allergy, Unknown, 04/09/20) prochlorperazine (Verified Allergy, Unknown, "JITTERY", 06/17/08) promethazine (Verified Allergy, Unknown, CONFUSED, AGITATED, 06/17/08) tramadol HCl (Verified Adverse Reaction, Mild, Anxiety, 04/26/13) Pt states she requires Benadryl to calm her down if she takes Ultram or Toradol. Does not have a true allergy to Ultram. Uncoded Allergies: iodine contrast (Adverse Reaction, Mild, 04/23/20) Home Medications ALPRAZolam 0.25 Mg Tab, 0.25 MG PO TID PRN for ANXIETY Prescribed by: CEZAR ELLINGTON on 01/06/212104 Cephalexin 500 Mg Tablet, 500 MG PO BID Prescribed by: OZZY HINES on 07/15/20 0002 Methocarbamol 750 Mg Tablet, 750 MG PO Q4H PRN for PAIN-MODERATE (5-7) Prescribed by: ANJELICA ANDERSEN on 09/04/202148 Nitrofurantoin Monohyd/M-Cryst 100 Mg Capsule, 1 TAB PO Q6H, (Reported) Patient Home Medication List Home Medication List Reviewed: Yes Review of Systems Review of Systems Constitutional: see HPI EENTM: no symptoms reported Respiratory: short of breath Cardiovascular: chest pain Gastrointestinal: no symptoms reported Genitourinary: no symptoms reported Musculoskeletal: joint pain Skin: no symptoms reported Psychiatric/Neurological: Anxiety, Depressed, Emotional Problems All Other Systems Reviewed Negative Unless Noted: Yes Past Seyycgq-Llgwab-Keefui Hx Patient Social History Tobacco Use?: Yes Tobacco type used: Cigarettes Smoking Status: Current Everyday Smoker Substance use?: No Alcohol Use?: No Pt feels they are or have been: No Immunizations Up To Date Tetanus Booster (TDap): Less than 5yrs PED Vaccines UTD: Yes Seasonal Allergies Seasonal Allergies: No Past Medical History Surgeries: Yes Bladder Surgery, Hysterectomy, Oophorectomy Respiratory: No Asthma, Chronic Bronchitis Cardiac: No Neurological: Yes (Restless leg syndrome) Reproductive Disorders: No Female Reproductive Disorders: 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, Ovarian Cyst 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 Sexually Transmitted Disease: No HIV/AIDS: No Genitourinary: No Bladder Infection, Kidney Stones, UTI-Chronic Gastrointestinal: Yes (gastric erosions) Hepatitis Musculoskeletal: No Arthritis, Chronic Back Pain Endocrine: No HEENT: No Cancer: No Psychosocial: Yes Anxiety Integumentary: No Blood Disorders: No Family Medical History Abdominal aortic aneurysm 19 FATHER Cancer of mouth GRANDMOTHER Diabetes mellitus 19 MOTHER Thyroid disease 19 MOTHER Heart Disease CYSPSH: -EGD'S/COLONOSCOPIES--LAST ONE HERE 2013--GASTRIC EROSIONS, SMALL HIATAL HERNIA, GERD, HEMORRHOIDS -PUBO-VAGINAL SLING + CYSTOSCOPY 2013--DR. GARCIA -BTL -D&C -ALEKSANDR/BSO -RIGHT OOPHORECTOMY FOR CYST -LEFT BREAST BIOPSY/CYST REMOVAL Physical Exam Vital Signs Vital Signs - First Documented 05/12/21 20:36 Temp 36.3 Pulse 125 Resp 26 B/P (MAP) 125/79 (94) Pulse Ox 96 O2 Delivery Room Air Capillary Refill : Less Than 3 Seconds Height, Weight, BMI Height: 5'2.00" Weight: 128lbs. 0oz. 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 II- XII Norm as Tested, Other (Very anxious and tearful) Skin: Normal Color, Warm/Dry Progress/Results/Core Measures Suspected Sepsis SIRS Temperature: Pulse: 125 Respiratory Rate: 26 Blood Pressure 125 /79 Mean: 94 Results/Orders My Orders Orders - SIMON ELLISON MD Alprazolam Tablet (Xanax Tablet) (05/12/21 21:15) Medications Given in ED Current Medications Medications Dose Ordered Sig/Louis Route Start Time Stop Time Status Last Admin Dose Admin Alprazolam 1 mg ONCE ONCE PO 05/12/21 21:15 05/12/21 21:16 DC 05/12/21 21:38 1 MG Vital Signs/I&O 05/12/21 20:36 Temp 36.3 Pulse 125 Resp 26 B/P (MAP) 125/79 (94) Pulse Ox 96 O2 Delivery Room Air Capillary Refill : Less Than 3 Seconds 2 Blood Pressure Mean: 94 Progress Note : Time: 21:57 Progress Note Patient reevaluated and states she is feeling better from her anxiety attack. Recommended continued gofs-swa-orxpuuy ibuprofen for her foot pain. We will give her 500 of naproxen here in the department. Patient is strongly encouraged to follow-up again with [facility]. She verbalizes understanding. All questions were sought and answered. Patient is stable for discharge. Departure Impression Primary Impression: Anxiety attack Additional Impression: Pain, foot, left, chronic Disposition: HOME, SELF-CARE Condition: Stable Departure-Patient Inst. Decision time for Depature: 21:57 Referrals: [facility]/DEISI NINO,LOCAL PHYSICIAN (PCP) Primary Care Physician Patient Instructions: Chronic Pain, Anxiety, Adult ED Add. Discharge Instructions: Continue your medications as previously prescribed. Take yigb-nui-khewzdg ibuprofen, 3 tablets every 6-8 hours as needed with food for pain. You can elevate your left foot and apply ice packs also as needed for discomfort. Please follow-up again with [facility]. Return to the emergency room for any new, concerning or emergent complaints. SIMON ELLISON MD May 12, 2021 21:19
[2021-05-12] MEDS ORDERED: NAPROXEN 250 MG (NAPROSYN) TABLET PO ONE (22:00)
[2021-05-12 22:03] VITALS: BP 125/79
== END 2021-05-12 22:03 | disposition home or self-care (01) ==
LOC: EDUNIT# 20:25 → ER 20:27
DX: F41.9 Anxiety disorder, unspecified (principal); G89.29 Other chronic pain; M79.672 Pain in left foot; J45.909 Unspecified asthma, uncomplicated; F17.210 Nicotine dependence, cigarettes, uncomplicated; Z79.899 Other long term (current) drug therapy
CPT/HCPCS: 99283